=== PATIENT | male | born 1965 | race African-American/Black ===

== ENCOUNTER 2017-01-20 19:04 | Emergency (ER) | payer SELFPAY ==
[~2017-01-20] VITALS: Ht 152.4 cm; Wt 74.8 kg
[~2017-01-20 19:04] MED LIST: ERYT1OIN6 OP
[2017-01-20 20:05] LABS: BARBITURATES NEG (NEG); BENZODIAZEPINES NEG (NEG); CANNABINOIDS POS (NEG); COCAINE POS (NEG); METHADONE NEG (NEG); OPIATES NEG (NEG); PHENCYCLIDINE NEG (NEG)
[2017-01-20 20:09] LABS: ETHANOL, URINE NEG (NEG)
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
[2017-01-20] MEDS ORDERED: NAPROXEN 500 MG TABLET PO ONE (23:00)
[2017-01-20 23:04] VITALS: BP 124/72
[2017-01-20] MEDS ORDERED: CYCL10TA2 PO (23:10)
[2017-01-20] MEDS ORDERED: NAPR375T3 PO (23:10)
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
== END 2017-01-20 23:30 | disposition home or self-care (01) ==
LOC: ER 19:04
DX: S09.90XA Unspecified injury of head, initial encounter (principal); M54.2 Cervicalgia; M54.9 Dorsalgia, unspecified; V59.88XA Occupant (driver) (passenger) of pick-up truck or van injured in other specified transport accidents, initial encounter; Y93.89 Activity, other specified; Y99.8 Other external cause status; Y92.488 Other paved roadways as the place of occurrence of the external cause
CPT/HCPCS: 36415; 70450; 72072; 72100; 72125; 80305; 80320; G0480; G0481; 99285-25

== ENCOUNTER 2017-03-27 12:39 | Inpatient (IN) | payer SELFPAY ==
[~2017-03-27] VITALS: Ht 180.3 cm; Wt 84.0 kg
[~2017-03-27 12:39] MED LIST changes: +CYCL10TA2 PO; +NAPR375T3 PO
[2017-03-27] MEDS ORDERED: KETOROLAC TROMETHAMINE 30 MG/ML INJ. IV ONE (13:15)
[2017-03-27] MEDS ORDERED: ONDANSETRON PF 4 MG/2 ML VIAL. IV ONE (13:15)
[2017-03-27] MEDS ORDERED: MORPHINE SULFATE 10 MG/ML VIAL. IV ONE (13:15)
[2017-03-27] MEDS ORDERED: ASPIRIN ENTERIC COATED 325 MG TABLET.DR. PO ONE (13:15)
[2017-03-27 13:25] LABS: BASO % 1 % (0-3); EOS % 2 % (0-3); HEMATOCRIT 44.7 % (39.0-53.0); HEMOGLOBIN 15.4 g/dL (13.0-17.5); LYMPH # 2.6 x10^3/uL (1.0-4.8); LYMPH % 45 % (24-48); MEAN CORPUSCULAR HEMOGLOBIN 32 pg (25-35); MEAN CORPUSCULAR HGB CONC 34 g/dL (31-37); MEAN CORPUSCULAR VOLUME 93 fL (79-100); MONO % 9 % (0-9); NEUT % 44 % (31-73); PLATELET COUNT 233 x10^3/uL (140-400); RED BLOOD COUNT 4.82 x10^6/uL (4.30-5.70); RED CELL DISTRIBUTION WIDTH 14.5 % (11.5-14.5); WHITE BLOOD COUNT 5.8 x10^3/uL (4.0-11.0)
[2017-03-27 13:32] LABS: PROTHROMBIN TIME PATIENT 12.3 SEC (11.7-14.0)
[2017-03-27 13:33] LABS: CALCIUM 8.7 mg/dL (8.5-10.1); CREATININE 1.2 mg/dL (0.7-1.3); GFR 76.9; POTASSIUM 4.3 mmol/L (3.5-5.1)
[2017-03-27 13:39] LABS: ALBUMIN 3.5 g/dL (3.4-5.0); MAGNESIUM 1.9 mg/dL (1.8-2.4); TOTAL BILIRUBIN 0.3 mg/dL (0.2-1.0); TOTAL PROTEIN 7.1 g/dL (6.4-8.2)
[2017-03-27] MEDS ORDERED: ONDANSETRON PF 4 MG/2 ML VIAL. IV PRN ×2 (14:00→16:00)
[2017-03-27] MEDS ORDERED: fentaNYL PF VIAL 100 MCG/2 ML VIAL IV PRN (14:00)
--- NOTE | 2017-03-27 14:17 | PHYS DOC ---
Past Medical History Past Medical History: COPD Past Surgical History: No Surgical History Alcohol Use: None Drug Use: Marijuana Adult General Chief Complaint Chief Complaint: CHEST PAIN HPI HPI Patient is a 51 year old male presenting to the emergency department for evaluation of chest pain that has been going on for approximately 2-3 days if he describes it as a sharp pain that lasts 3-4 minutes at a time and can be associated with exertion but can happen at rest as well. She and has some shortness of breath with it but no nausea vomiting or diaphoresis. Patient denies any history of cardiac disease and he says his only medical problem is high blood pressure. He denies any drug or alcohol abuse with no prior stress test or heart catheterization that he can think of. Review of Systems Review of Systems Constitutional: Denies fever or chills [] Eyes: Denies change in visual acuity, redness, or eye pain [] HENT: Denies nasal congestion or sore throat [] Respiratory: Denies cough. + shortness of breath [] Cardiovascular: + CP GI: Denies abdominal pain. + nausea. No vomiting, bloody stools or diarrhea [] : Denies dysuria or hematuria [] Musculoskeletal: Denies back pain or joint pain [] Integument: Denies rash or skin lesions [] Neurologic: Denies headache, focal weakness or sensory changes [] Current Medications Current Medications Current Medications Medications (Trade) Dose Ordered Sig/Wayne Start Time Stop Time Status Last Admin Dose Admin Aspirin (Ecotrin) 325 mg 1X ONCE 03/27/17 13:15 03/27/17 13:16 DC 03/27/17 13:22 325 MG Ketorolac Tromethamine (Toradol) 30 mg 1X ONCE 03/27/17 13:15 03/27/17 13:16 DC 03/27/17 13:22 30 MG Morphine Sulfate 5 mg 1X ONCE 03/27/17 13:15 03/27/17 13:16 DC 03/27/17 13:23 5 MG Ondansetron HCl (Zofran) 4 mg 1X ONCE 03/27/17 13:15 03/27/17 13:16 DC 03/27/17 13:22 4 MG Allergies Allergies Allergies Coded Allergies Type Severity Reaction Last Updated Verified No Known Drug Allergies 02/07/16 No Physical Exam Physical Exam Constitutional: Well developed, well nourished, no acute distress, non-toxic appearance. [] HENT: Normocephalic, atraumatic, bilateral external ears normal, oropharynx moist, no oral exudates, nose normal. [] Eyes: PERRLA, EOMI, conjunctiva normal, no discharge. [] Neck: Normal range of motion, no tenderness, supple, no stridor. [] Cardiovascular:Heart rate regular rhythm, no murmur [] Lungs & Thorax: Bilateral breath sounds clear to auscultation [] Abdomen: Bowel sounds normal, soft, no tenderness, no masses, no pulsatile masses. [] Skin: Warm, dry, no erythema, no rash. [] Back: No tenderness, no CVA tenderness. [] Extremities: No tenderness, no cyanosis, no clubbing, ROM intact, no edema. [] Neurologic: Alert and oriented X 3, normal motor function, normal sensory function, no focal deficits noted. [] Current Patient Data Vital Signs Vital Signs Date Time Temp Pulse Resp B/P (MAP) Pulse Ox O2 Delivery O2 Flow Rate FiO2 03/27/17 13:45 58 17 135/72 (93) 100 03/27/17 13:23 Room Air 03/27/17 13:05 97.8 97.8 Lab Values Laboratory Tests Test 03/27/17 13:10 White Blood Count 5.8 x10^3/uL (4.0-11.0) Red Blood Count 4.82 x10^6/uL (4.30-5.70) Hemoglobin 15.4 g/dL (13.0-17.5) Hematocrit 44.7 % (39.0-53.0) Mean Corpuscular Volume 93 fL (79-100) Mean Corpuscular Hemoglobin 32 pg (25-35) Mean Corpuscular Hemoglobin Concent 34 g/dL (31-37) Red Cell Distribution Width 14.5 % (11.5-14.5) Platelet Count 233 x10^3/uL (140-400) Neutrophils (%) (Auto) 44 % (31-73) Lymphocytes (%) (Auto) 45 % (24-48) Monocytes (%) (Auto) 9 % (0-9) Eosinophils (%) (Auto) 2 % (0-3) Basophils (%) (Auto) 1 % (0-3) Neutrophils # (Auto) 2.6 x10^3uL (1.8-7.7) Lymphocytes # (Auto) 2.6 x10^3/uL (1.0-4.8) Monocytes # (Auto) 0.5 x10^3/uL (0.0-1.1) Eosinophils # (Auto) 0.1 x10^3/uL (0.0-0.7) Basophils # (Auto) 0.0 x10^3/uL (0.0-0.2) Prothrombin Time 12.3 SEC (11.7-14.0) Prothrombin Time INR 1.0 (0.8-1.1) PTT 28 SEC (24-38) Sodium Level 143 mmol/L (136-145) Potassium Level 4.3 mmol/L (3.5-5.1) Chloride Level 109 mmol/L (98-107) H Carbon Dioxide Level 31 mmol/L (21-32) Anion Gap 3 (6-14) L Blood Urea Nitrogen 7 mg/dL (8-26) L Creatinine 1.2 mg/dL (0.7-1.3) Estimated GFR (Cockcroft-Gault) 76.9 BUN/Creatinine Ratio 6 (6-20) Glucose Level 76 mg/dL (70-99) Calcium Level 8.7 mg/dL (8.5-10.1) Magnesium Level 1.9 mg/dL (1.8-2.4) Total Bilirubin 0.3 mg/dL (0.2-1.0) Aspartate Amino Transferase (AST) 20 U/L (15-37) Alanine Aminotransferase (ALT) 30 U/L (16-63) Alkaline Phosphatase 51 U/L (46-116) Creatine Kinase 533 U/L (39-308) H Troponin I Quantitative 0.168 ng/mL (0.000-0.055) BN-Wxx-O-Type Natriuretic Peptide 173 pg/mL (0-124) H Total Protein 7.1 g/dL (6.4-8.2) Albumin 3.5 g/dL (3.4-5.0) Albumin/Globulin Ratio 1.0 (1.0-1.7) Lipase 325 U/L (73-393) Laboratory Tests 03/27/17 13:10 Laboratory Tests 03/27/17 13:10 EKG EKG EKG shows biphasic T waves in leads V1 through V3 and inverted T waves in leads V4 through V6 with no obvious ST elevation with a greater than 1 mm. He has normal sinus rhythm at 67 bpm with normal axis. Left ventricular hypertrophy noted Radiology/Procedures Radiology/Procedures Normal mediastinum and normal heart size no obvious free air or pneumothorax or opacity. Course & Med Decision Making Course & Med Decision Making Patient with elevated troponin so will admit for further observation and treatment. Aspirin and Lovenox given. Dragon Disclaimer Dragon Disclaimer This electronic medical record was generated, in whole or in part, using a voice recognition dictation system. Departure Departure Impression: Primary Impression: NSTEMI (non-ST elevated myocardial infarction) Disposition: ADMITTED INPATIENT Admitting Physician: Kevin Saunders Condition: GUARDED Referrals: NO PCP (PCP) ROSAMARIA KAY DO Mar 27, 2017 14:17
--- NOTE | 2017-03-27 14:46 | RAD ---
Indication chest pain. A single view of the chest was obtained. Comparison is made to a study 01/17/2008. The heart, pulmonary vessels and mediastinum appear normal. The lungs are clear. There is no pleural fluid or pneumothorax. The bony structures appear grossly intact. IMPRESSION: No acute or focal process is seen in the chest
[2017-03-27 15:00] VITALS: BP 116/78
--- NOTE | 2017-03-27 15:15 | ACF ---
Admission Forms Criteria MYOCARDIAL INFARCTION Clinical Indications for Admission to Inpatient Care (Place 'X' for any and all applicable criteria): Admission is indicated for 1 or more of the following (1)(2)(3)(4): [X]I. Acute IN [ ]II. Contraindications and/or Inappropriate clinical situations for Observational Care in patients with Myocardial Infarction, when ANY ONE of the following is required: [ ]a) Patient with High risk of cardiac embolism (e.g, patients with previous cardiac embolism, LVEF < 40%, age >75 and patients with prosthetic valve) 18 [ ]b) Patient with Moderate risk including DM patient, CAD and patient aged 65-75 18 [ ]c) Patient with any change in cardiac biomarker especially troponin should be managed as high risk in an inpatient setting 19 [ ]d) Physician judgement irrespective of ECG and other diagnostic findings 20 [ ]III.General contraindications and/or Inappropriate clinical situations for Observational Care in patients with Myocardial Infarction, when ANY ONE of the following is required: [ ]a) Prediction of prolongation of LOS based on ANY ONE of the following may be considered as a contraindication for observational care 2, 3, 4, 5, 6, 7, 8, 9, 10, 11 [ ]i) Age > 65 yrs. [ ]ii) Patient arriving by ambulance [ ]iii) Patient with high acuity [ ]iv) Patient requiring vital sign monitoring [ ]v) Patient on IV medication [ ]b) Systolic blood pressures greater than or equal to 180mmHg 3,12 [ ]c) Patient with altered mental status including delirium and other alteration of consciousness, (3) [ ]d) Patient whose discharge disposition will be to a correction home or rehabilitation home should not be managed in Emergency Department Observation Unit. CMS rule requires 3 days hospital stay before such placement. 3,13 [ ]e) Patient with failure to thrive due to broad array of etiologies 3 ,16,17 [ ]f) Inability to ambulate 3,14 Extended stay beyond goal length of stay may be needed for (1)(18)(20)(24)(25): [ ]a) Hemodynamic instability, persisting symptoms after intensive medical management, or recurring severe, prolonged symptoms [ ]b) Intravascular procedural complications such as acute vessel closure, stent thrombosis, stent malposition, or vessel dissection (26)(27)(28) [ ]c) Extravascular procedural complications such as retroperitoneal hematoma , pericardial effusion, or cardiac tamponade [ ]d) Entry site complications causing bleeding, hematoma or distal ischemia and requiring ongoing monitoring, surgical repair or surgical thrombectomy. Dangerous arrhythmia [ ]e) Complicated percutaneous coronary intervention (e.g., unsuccessful percutaneous coronary intervention or percutaneous coronary intervention of non- [place] vessel) [ ]f) Urgent or emergent surgery for complications of IN (e.g., ventricular rupture, valvular insufficiency) [ ]g) Surgical revascularization via coronary artery bypass graft [ ]h) Heart failure (e.g., pulmonary edema) [ ]i) Unstable pulmonary comorbidities, including COPD or pneumonia (31) [ ]j) Acute renal failure The original [employer] content created by [employer] has been revised. The portions of the content which have been revised are identified through the use of italic text or in bold, and [facility] has neither reviewed nor approved the modified material. All other unmodified content is copyright [employer] [facility] Please see references footnoted in the original [facility] edition 2016 Admission Criteria Met?: Yes HARMONY FAUSTIN Mar 27, 2017 15:15
--- NOTE | 2017-03-27 15:44 | PDOC1 ---
History and Physical Past Medical History Cardiovascular: HTN Past Surgical History Past Surgical History: No pertinent history Current Problem List Problem List Problems Medical Problems: (1) NSTEMI (non-ST elevated myocardial infarction) Status: Acute Current Medications Current Medications Current Medications Medications (Trade) Dose Ordered Sig/Wayne Start Time Stop Time Status Last Admin Dose Admin Aspirin (Ecotrin) 325 mg 1X ONCE 03/27/17 13:15 03/27/17 13:16 DC 03/27/17 13:22 Enoxaparin Sodium (Lovenox 80mg Syringe) 70 mg 1X ONCE 03/27/17 14:00 03/27/17 14:01 DC 03/27/17 14:47 Fentanyl Citrate (Fentanyl 2ml Vial) 50 mcg PRN Q2HR PRN 03/27/17 14:00 03/28/17 13:59 Ketorolac Tromethamine (Toradol) 30 mg 1X ONCE 03/27/17 13:15 03/27/17 13:16 DC 03/27/17 13:22 Morphine Sulfate 5 mg 1X ONCE 03/27/17 13:15 03/27/17 13:16 DC 03/27/17 13:23 Ondansetron HCl (Zofran) 4 mg PRN Q8HRS PRN 03/27/17 14:00 03/28/17 13:59 Allergies Allergies Allergies Coded Allergies Type Severity Reaction Last Updated Verified No Known Drug Allergies 02/07/16 No ROS Review of System CONSTITUTIONAL: No fever or chills EYES: No recent changes SKIN: No rash or itching CARDIOVASCULAR: No chest pain, syncope, palpitations, or edema RESPIRATORY: No SOB or cough GASTROINTESTINAL: No nausea, vomiting or abdominal pain NEUROLOGICAL: No headaches or weakness ENDOCRINE: No cold or heat intolerance GENITOURINARY: No urgency or frequency of urination MUSCULOSKELETAL: No back pain or joint pain LYMPHATICS: No enlarged lymph nodes PSYCHIATRIC: No anxiety or depression Physical Exam Physical Exam GEN.: No apparent distress. Alert and oriented. HEENT: Head is normocephalic, atraumatic NECK: Supple. no JVD LUNGS: Clear to auscultation. normal airflow HEART: RRR, S1, S2 present. Peripheral pulses intact ABDOMEN: Soft, nontender. Positive bowel sounds. EXTREMITIES: Without any cyanosis. NEUROLOGIC: Normal speech, normal tone PSYCHIATRIC: Normal affect, normal mood. SKIN: No ulcerations Vitals Vitals Vital Signs Date Time Temp Pulse Resp B/P (MAP) Pulse Ox O2 Delivery O2 Flow Rate FiO2 03/27/17 13:45 58 17 135/72 (93) 100 03/27/17 13:23 Room Air 03/27/17 13:05 97.8 97.8 Labs Labs Laboratory Tests Test 03/27/17 13:10 White Blood Count 5.8 x10^3/uL (4.0-11.0) Red Blood Count 4.82 x10^6/uL (4.30-5.70) Hemoglobin 15.4 g/dL (13.0-17.5) Hematocrit 44.7 % (39.0-53.0) Mean Corpuscular Volume 93 fL (79-100) Mean Corpuscular Hemoglobin 32 pg (25-35) Mean Corpuscular Hemoglobin Concent 34 g/dL (31-37) Red Cell Distribution Width 14.5 % (11.5-14.5) Platelet Count 233 x10^3/uL (140-400) Neutrophils (%) (Auto) 44 % (31-73) Lymphocytes (%) (Auto) 45 % (24-48) Monocytes (%) (Auto) 9 % (0-9) Eosinophils (%) (Auto) 2 % (0-3) Basophils (%) (Auto) 1 % (0-3) Neutrophils # (Auto) 2.6 x10^3uL (1.8-7.7) Lymphocytes # (Auto) 2.6 x10^3/uL (1.0-4.8) Monocytes # (Auto) 0.5 x10^3/uL (0.0-1.1) Eosinophils # (Auto) 0.1 x10^3/uL (0.0-0.7) Basophils # (Auto) 0.0 x10^3/uL (0.0-0.2) Prothrombin Time 12.3 SEC (11.7-14.0) Prothromb Time International Ratio 1.0 (0.8-1.1) Activated Partial Thromboplast Time 28 SEC (24-38) Sodium Level 143 mmol/L (136-145) Potassium Level 4.3 mmol/L (3.5-5.1) Chloride Level 109 mmol/L (98-107) Carbon Dioxide Level 31 mmol/L (21-32) Anion Gap 3 (6-14) Blood Urea Nitrogen 7 mg/dL (8-26) Creatinine 1.2 mg/dL (0.7-1.3) Estimated GFR (Cockcroft-Gault) 76.9 BUN/Creatinine Ratio 6 (6-20) Glucose Level 76 mg/dL (70-99) Calcium Level 8.7 mg/dL (8.5-10.1) Magnesium Level 1.9 mg/dL (1.8-2.4) Total Bilirubin 0.3 mg/dL (0.2-1.0) Aspartate Amino Transf (AST/SGOT) 20 U/L (15-37) Alanine Aminotransferase (ALT/SGPT) 30 U/L (16-63) Alkaline Phosphatase 51 U/L (46-116) Creatine Kinase 533 U/L (39-308) Troponin I Quantitative 0.168 ng/mL (0.000-0.055) OG-Qwo-A-Type Natriuretic Peptide 173 pg/mL (0-124) Total Protein 7.1 g/dL (6.4-8.2) Albumin 3.5 g/dL (3.4-5.0) Albumin/Globulin Ratio 1.0 (1.0-1.7) Lipase 325 U/L (73-393) Ethyl Alcohol Level < 10 mg/dL (0-10) Laboratory Tests Test 03/27/17 13:10 White Blood Count 5.8 x10^3/uL (4.0-11.0) Red Blood Count 4.82 x10^6/uL (4.30-5.70) Hemoglobin 15.4 g/dL (13.0-17.5) Hematocrit 44.7 % (39.0-53.0) Mean Corpuscular Volume 93 fL (79-100) Mean Corpuscular Hemoglobin 32 pg (25-35) Mean Corpuscular Hemoglobin Concent 34 g/dL (31-37) Red Cell Distribution Width 14.5 % (11.5-14.5) Platelet Count 233 x10^3/uL (140-400) Neutrophils (%) (Auto) 44 % (31-73) Lymphocytes (%) (Auto) 45 % (24-48) Monocytes (%) (Auto) 9 % (0-9) Eosinophils (%) (Auto) 2 % (0-3) Basophils (%) (Auto) 1 % (0-3) Neutrophils # (Auto) 2.6 x10^3uL (1.8-7.7) Lymphocytes # (Auto) 2.6 x10^3/uL (1.0-4.8) Monocytes # (Auto) 0.5 x10^3/uL (0.0-1.1) Eosinophils # (Auto) 0.1 x10^3/uL (0.0-0.7) Basophils # (Auto) 0.0 x10^3/uL (0.0-0.2) Prothrombin Time 12.3 SEC (11.7-14.0) Prothromb Time International Ratio 1.0 (0.8-1.1) Activated Partial Thromboplast Time 28 SEC (24-38) Sodium Level 143 mmol/L (136-145) Potassium Level 4.3 mmol/L (3.5-5.1) Chloride Level 109 mmol/L (98-107) Carbon Dioxide Level 31 mmol/L (21-32) Anion Gap 3 (6-14) Blood Urea Nitrogen 7 mg/dL (8-26) Creatinine 1.2 mg/dL (0.7-1.3) Estimated GFR (Cockcroft-Gault) 76.9 BUN/Creatinine Ratio 6 (6-20) Glucose Level 76 mg/dL (70-99) Calcium Level 8.7 mg/dL (8.5-10.1) Magnesium Level 1.9 mg/dL (1.8-2.4) Total Bilirubin 0.3 mg/dL (0.2-1.0) Aspartate Amino Transf (AST/SGOT) 20 U/L (15-37) Alanine Aminotransferase (ALT/SGPT) 30 U/L (16-63) Alkaline Phosphatase 51 U/L (46-116) Creatine Kinase 533 U/L (39-308) Troponin I Quantitative 0.168 ng/mL (0.000-0.055) QG-Jha-W-Type Natriuretic Peptide 173 pg/mL (0-124) Total Protein 7.1 g/dL (6.4-8.2) Albumin 3.5 g/dL (3.4-5.0) Albumin/Globulin Ratio 1.0 (1.0-1.7) Lipase 325 U/L (73-393) Ethyl Alcohol Level < 10 mg/dL (0-10) VTE Prophylaxis Ordered VTE Prophylaxis Devices: Yes VTE Pharmacological Prophylaxi: Yes STEFANY WADE MD Mar 27, 2017 15:44
[2017-03-27] MEDS ORDERED: HYDROcodone/APAP 5/325MG 1 TAB TABLET PO PRN (16:00)
[2017-03-27] MEDS ORDERED: ACETAMINOPHEN 325 MG TABLET. PO PRN (16:00)
[2017-03-27] MEDS ORDERED: ALBUTEROL SULFATE 2.5 MG/3 ML NEBU. NEB PRN (16:00)
[2017-03-27] MEDS ORDERED: hydrALAZINE 20 MG/ML VIAL. IVP PRN (16:00)
[2017-03-27 16:20] VITALS: BP 116/61
[2017-03-27 16:21] VITALS: BP 116/61
[2017-03-27 16:22] VITALS: BP 116/61
--- NOTE | 2017-03-27 17:11 | EKG ---
[facility] [address] [place] [address] Test Date: 2017-03-27 Test Time: 17:02:35 Pat Name: CALISTA ROWAN Department: Room: 205 1 Gender: M Registered Nurse Float Pool: : [id number] Requested By: ROSAMARIA KAY Order Number: [id number] Reading MD: Mayra Christine Measurements Intervals [place] Rate: 53 P: 56 [place]: 202 QRS: 73 QRSD: 100 T: 128 QT: 476 QTc: 449 Interpretive Statements SINUS RHYTHM LEFT ATRIAL ABNORMALITY LVH WITH REPOLARIZATION ABNORMALITY ALSO CONSIDER MYOCARDIAL ISCHEMIA ABNORMAL ECG RI6.01 No previous ECG available for comparison Electronically Signed On 03-28-2017 21:20:58 CDT by Mayra Christine
--- NOTE | 2017-03-27 17:51 | HP ---
ADMIT DATE: 03/27/2017 CHIEF COMPLAINT: Chest pain. HISTORY OF THE PRESENT ILLNESS: A 51-year-old male patient who presented to the ER with complaints of chest pain. Symptoms were there for over the last couple of days. They are coming and going, periodic in nature, and lasting for a few minutes. His employer asked him to go to the hospital to check it out. The patient denies any nausea, vomiting, or sweating. He never had a stress test in the past. He never had any workup for chest pain or any bypass surgeries. The patient states he was taking too much salt with the diet. Other than that, he denies taking any pills for any chronic medical conditions. His mother has hypertension and heart disease. He denies any sudden cardiac deaths. At the time of my examination, the patient states that his pain is still there in front of the chest, going to his back sometimes. It resolves immediately in minutes. PAST MEDICAL HISTORY: COPD. PERSONAL HISTORY: Smoking, alcohol occasionally, marijuana occasionally. He denies any other drug abuse. ALLERGIES: NKDA. REVIEW OF SYSTEMS: Please see my electronic H and P. PHYSICAL EXAMINATION: Please see my electronic H and P. LABORATORY FINDINGS: CBC is within normal limits. Chemistry is within normal limits except for CPK at 533 and first set of troponin 0.168. Toxicology is negative except for cannabinoids. Coagulation Panel: PT and INR are within normal limits. EKG LVH with repolarization changes inverted T-waves in V4 and V5. No ST elevation is seen. Personally reviewed. Chest x-ray: No acute focal process seen. CT of the head and cervical spine: No acute intracranial process seen. No fracture, subluxation of the cervical vertebra seen. Lumbar spine x-ray: No osseous traumatic injury seen. ASSESSMENT AND PLAN: 1. Chest pain, possible differentials ACS versus gastritis versus costochondritis. 2. Chronic obstructive pulmonary disease. 3. Substance use, marijuana. PLAN: He is being placed on cardiac floor on telemetry. We will get 3 more sets of troponins and consult Cardiology for further recommendations. The patient received already Lovenox in the ER. We will continue either heparin based on his troponins. We will try Protonix for now, IV. If the patient's symptoms get worse, I will repeat an EKG again. At this time, he is resting comfortably, able to answer questions. recommend abstinence from THC STEFANY WADE MD DR: DEUCE/migue JOB#: [id number] / [id number] BIA
[2017-03-27] MEDS ORDERED: MORPHINE SULFATE 2 MG/ML DISP.SYRIN. IV PRN (18:00)
[2017-03-27] MEDS ORDERED: NITROGLYCERIN SUBLINGUAL 0.4 MG BOTTLE OF 25. SL PRN (18:00)
[2017-03-27] MEDS ORDERED: 0.9 % SODIUM CHLORIDE 10 ML DISP.SYRIN. IV PRN (18:00)
[2017-03-27 19:16] VITALS: BP 119/79
[2017-03-27] MEDS ORDERED: PANTOPRAZOLE 40 MG TABLET.DR. PO ONE (21:00)
[2017-03-27 22:15] VITALS: BP 132/83
[2017-03-28 03:50] VITALS: BP 131/71
[2017-03-28 05:44] LABS: BASO % 1 % (0-3); EOS % 1 % (0-3); HEMATOCRIT 44.4 % (39.0-53.0); HEMOGLOBIN 15.1 g/dL (13.0-17.5); LYMPH # 2.8 x10^3/uL (1.0-4.8); LYMPH % 53 % (24-48); MEAN CORPUSCULAR HEMOGLOBIN 32 pg (25-35); MEAN CORPUSCULAR HGB CONC 34 g/dL (31-37); MEAN CORPUSCULAR VOLUME 94 fL (79-100); MONO % 6 % (0-9); NEUT % 39 % (31-73); PLATELET COUNT 222 x10^3/uL (140-400); RED BLOOD COUNT 4.72 x10^6/uL (4.30-5.70); RED CELL DISTRIBUTION WIDTH 14.5 % (11.5-14.5); WHITE BLOOD COUNT 5.4 x10^3/uL (4.0-11.0)
[2017-03-28 06:01] LABS: CALCIUM 8.6 mg/dL (8.5-10.1); CREATININE 1.3 mg/dL (0.7-1.3); GFR 70.1; POTASSIUM 4.5 mmol/L (3.5-5.1)
[2017-03-28 06:06] LABS: CHOLESTEROL/HDL RATIO 5.3
[2017-03-28 07:00] VITALS: BP 147/69
[2017-03-28 11:00] VITALS: BP 117/66
--- NOTE | 2017-03-28 12:20 | PDOC ---
PROGRESS NOTES Chief Complaint Chief Complaint cc: chest pain A/P NSTEMI: On Lovenox, Echo pending, chest pain free, possible Cath in AM, Pain control with Morphine PRN Hyperlipemia: on Lipitor Vitals Vitals Vital Signs Date Time Temp Pulse Resp B/P (MAP) Pulse Ox O2 Delivery O2 Flow Rate FiO2 03/28/17 11:00 97.7 58 16 117/66 (83) 98 Room Air 97.7 03/28/17 07:00 Physical Exam General: Alert, Oriented X3 Heart: Normal S1, Normal S2 Lungs: Wheezing Abdomen: Normal bowel sounds Extremities: No clubbing Labs LABS Laboratory Tests Test 03/27/17 13:10 03/27/17 20:00 03/28/17 02:30 03/28/17 05:15 White Blood Count 5.8 x10^3/uL (4.0-11.0) 5.4 x10^3/uL (4.0-11.0) Red Blood Count 4.82 x10^6/uL (4.30-5.70) 4.72 x10^6/uL (4.30-5.70) Hemoglobin 15.4 g/dL (13.0-17.5) 15.1 g/dL (13.0-17.5) Hematocrit 44.7 % (39.0-53.0) 44.4 % (39.0-53.0) Mean Corpuscular Volume 93 fL (79-100) 94 fL (79-100) Mean Corpuscular Hemoglobin 32 pg (25-35) 32 pg (25-35) Mean Corpuscular Hemoglobin Concent 34 g/dL (31-37) 34 g/dL (31-37) Red Cell Distribution Width 14.5 % (11.5-14.5) 14.5 % (11.5-14.5) Platelet Count 233 x10^3/uL (140-400) 222 x10^3/uL (140-400) Neutrophils (%) (Auto) 44 % (31-73) 39 % (31-73) Lymphocytes (%) (Auto) 45 % (24-48) 53 % (24-48) Monocytes (%) (Auto) 9 % (0-9) 6 % (0-9) Eosinophils (%) (Auto) 2 % (0-3) 1 % (0-3) Basophils (%) (Auto) 1 % (0-3) 1 % (0-3) Neutrophils # (Auto) 2.6 x10^3uL (1.8-7.7) 2.1 x10^3uL (1.8-7.7) Lymphocytes # (Auto) 2.6 x10^3/uL (1.0-4.8) 2.8 x10^3/uL (1.0-4.8) Monocytes # (Auto) 0.5 x10^3/uL (0.0-1.1) 0.3 x10^3/uL (0.0-1.1) Eosinophils # (Auto) 0.1 x10^3/uL (0.0-0.7) 0.1 x10^3/uL (0.0-0.7) Basophils # (Auto) 0.0 x10^3/uL (0.0-0.2) 0.0 x10^3/uL (0.0-0.2) Prothrombin Time 12.3 SEC (11.7-14.0) Prothromb Time International Ratio 1.0 (0.8-1.1) Activated Partial Thromboplast Time 28 SEC (24-38) Sodium Level 143 mmol/L (136-145) 142 mmol/L (136-145) Potassium Level 4.3 mmol/L (3.5-5.1) 4.5 mmol/L (3.5-5.1) Chloride Level 109 mmol/L (98-107) 107 mmol/L (98-107) Carbon Dioxide Level 31 mmol/L (21-32) 28 mmol/L (21-32) Anion Gap 3 (6-14) 7 (6-14) Blood Urea Nitrogen 7 mg/dL (8-26) 11 mg/dL (8-26) Creatinine 1.2 mg/dL (0.7-1.3) 1.3 mg/dL (0.7-1.3) Estimated GFR (Cockcroft-Gault) 76.9 70.1 BUN/Creatinine Ratio 6 (6-20) Glucose Level 76 mg/dL (70-99) 78 mg/dL (70-99) Calcium Level 8.7 mg/dL (8.5-10.1) 8.6 mg/dL (8.5-10.1) Magnesium Level 1.9 mg/dL (1.8-2.4) Total Bilirubin 0.3 mg/dL (0.2-1.0) Aspartate Amino Transf (AST/SGOT) 20 U/L (15-37) Alanine Aminotransferase (ALT/SGPT) 30 U/L (16-63) Alkaline Phosphatase 51 U/L (46-116) Creatine Kinase 533 U/L (39-308) Troponin I Quantitative 0.168 ng/mL (0.000-0.055) 0.117 ng/mL (0.000-0.055) 0.149 ng/mL (0.000-0.055) SI-Zup-N-Type Natriuretic Peptide 173 pg/mL (0-124) Total Protein 7.1 g/dL (6.4-8.2) Albumin 3.5 g/dL (3.4-5.0) Albumin/Globulin Ratio 1.0 (1.0-1.7) Lipase 325 U/L (73-393) Ethyl Alcohol Level < 10 mg/dL (0-10) Triglycerides Level 178 mg/dL (0-150) Cholesterol Level 175 mg/dL (0-200) LDL Cholesterol, Calculated 106 mg/dL (0-100) VLDL Cholesterol, Calculated 36 mg/dL (0-40) Non-HDL Cholesterol Calculated 142 mg/dL (0-129) HDL Cholesterol 33 mg/dL (40-60) Cholesterol/HDL Ratio 5.3 Assessment and Plan Assessmemt and Plan Problems Medical Problems: (1) NSTEMI (non-ST elevated myocardial infarction) Status: Acute Problems: Comment Review of Relevant I have reviewed the following items sina (where applicable) has been applied. Labs Laboratory Tests Test 03/27/17 13:10 03/27/17 20:00 03/28/17 02:30 03/28/17 05:15 White Blood Count 5.8 x10^3/uL (4.0-11.0) 5.4 x10^3/uL (4.0-11.0) Red Blood Count 4.82 x10^6/uL (4.30-5.70) 4.72 x10^6/uL (4.30-5.70) Hemoglobin 15.4 g/dL (13.0-17.5) 15.1 g/dL (13.0-17.5) Hematocrit 44.7 % (39.0-53.0) 44.4 % (39.0-53.0) Mean Corpuscular Volume 93 fL (79-100) 94 fL (79-100) Mean Corpuscular Hemoglobin 32 pg (25-35) 32 pg (25-35) Mean Corpuscular Hemoglobin Concent 34 g/dL (31-37) 34 g/dL (31-37) Red Cell Distribution Width 14.5 % (11.5-14.5) 14.5 % (11.5-14.5) Platelet Count 233 x10^3/uL (140-400) 222 x10^3/uL (140-400) Neutrophils (%) (Auto) 44 % (31-73) 39 % (31-73) Lymphocytes (%) (Auto) 45 % (24-48) 53 % (24-48) Monocytes (%) (Auto) 9 % (0-9) 6 % (0-9) Eosinophils (%) (Auto) 2 % (0-3) 1 % (0-3) Basophils (%) (Auto) 1 % (0-3) 1 % (0-3) Neutrophils # (Auto) 2.6 x10^3uL (1.8-7.7) 2.1 x10^3uL (1.8-7.7) Lymphocytes # (Auto) 2.6 x10^3/uL (1.0-4.8) 2.8 x10^3/uL (1.0-4.8) Monocytes # (Auto) 0.5 x10^3/uL (0.0-1.1) 0.3 x10^3/uL (0.0-1.1) Eosinophils # (Auto) 0.1 x10^3/uL (0.0-0.7) 0.1 x10^3/uL (0.0-0.7) Basophils # (Auto) 0.0 x10^3/uL (0.0-0.2) 0.0 x10^3/uL (0.0-0.2) Prothrombin Time 12.3 SEC (11.7-14.0) Prothromb Time International Ratio 1.0 (0.8-1.1) Activated Partial Thromboplast Time 28 SEC (24-38) Sodium Level 143 mmol/L (136-145) 142 mmol/L (136-145) Potassium Level 4.3 mmol/L (3.5-5.1) 4.5 mmol/L (3.5-5.1) Chloride Level 109 mmol/L (98-107) 107 mmol/L (98-107) Carbon Dioxide Level 31 mmol/L (21-32) 28 mmol/L (21-32) Anion Gap 3 (6-14) 7 (6-14) Blood Urea Nitrogen 7 mg/dL (8-26) 11 mg/dL (8-26) Creatinine 1.2 mg/dL (0.7-1.3) 1.3 mg/dL (0.7-1.3) Estimated GFR (Cockcroft-Gault) 76.9 70.1 BUN/Creatinine Ratio 6 (6-20) Glucose Level 76 mg/dL (70-99) 78 mg/dL (70-99) Calcium Level 8.7 mg/dL (8.5-10.1) 8.6 mg/dL (8.5-10.1) Magnesium Level 1.9 mg/dL (1.8-2.4) Total Bilirubin 0.3 mg/dL (0.2-1.0) Aspartate Amino Transf (AST/SGOT) 20 U/L (15-37) Alanine Aminotransferase (ALT/SGPT) 30 U/L (16-63) Alkaline Phosphatase 51 U/L (46-116) Creatine Kinase 533 U/L (39-308) Troponin I Quantitative 0.168 ng/mL (0.000-0.055) 0.117 ng/mL (0.000-0.055) 0.149 ng/mL (0.000-0.055) DJ-Tqm-S-Type Natriuretic Peptide 173 pg/mL (0-124) Total Protein 7.1 g/dL (6.4-8.2) Albumin 3.5 g/dL (3.4-5.0) Albumin/Globulin Ratio 1.0 (1.0-1.7) Lipase 325 U/L (73-393) Ethyl Alcohol Level < 10 mg/dL (0-10) Triglycerides Level 178 mg/dL (0-150) Cholesterol Level 175 mg/dL (0-200) LDL Cholesterol, Calculated 106 mg/dL (0-100) VLDL Cholesterol, Calculated 36 mg/dL (0-40) Non-HDL Cholesterol Calculated 142 mg/dL (0-129) HDL Cholesterol 33 mg/dL (40-60) Cholesterol/HDL Ratio 5.3 Laboratory Tests Test 03/27/17 13:10 03/27/17 20:00 03/28/17 02:30 03/28/17 05:15 White Blood Count 5.8 x10^3/uL (4.0-11.0) 5.4 x10^3/uL (4.0-11.0) Red Blood Count 4.82 x10^6/uL (4.30-5.70) 4.72 x10^6/uL (4.30-5.70) Hemoglobin 15.4 g/dL (13.0-17.5) 15.1 g/dL (13.0-17.5) Hematocrit 44.7 % (39.0-53.0) 44.4 % (39.0-53.0) Mean Corpuscular Volume 93 fL (79-100) 94 fL (79-100) Mean Corpuscular Hemoglobin 32 pg (25-35) 32 pg (25-35) Mean Corpuscular Hemoglobin Concent 34 g/dL (31-37) 34 g/dL (31-37) Red Cell Distribution Width 14.5 % (11.5-14.5) 14.5 % (11.5-14.5) Platelet Count 233 x10^3/uL (140-400) 222 x10^3/uL (140-400) Neutrophils (%) (Auto) 44 % (31-73) 39 % (31-73) Lymphocytes (%) (Auto) 45 % (24-48) 53 % (24-48) Monocytes (%) (Auto) 9 % (0-9) 6 % (0-9) Eosinophils (%) (Auto) 2 % (0-3) 1 % (0-3) Basophils (%) (Auto) 1 % (0-3) 1 % (0-3) Neutrophils # (Auto) 2.6 x10^3uL (1.8-7.7) 2.1 x10^3uL (1.8-7.7) Lymphocytes # (Auto) 2.6 x10^3/uL (1.0-4.8) 2.8 x10^3/uL (1.0-4.8) Monocytes # (Auto) 0.5 x10^3/uL (0.0-1.1) 0.3 x10^3/uL (0.0-1.1) Eosinophils # (Auto) 0.1 x10^3/uL (0.0-0.7) 0.1 x10^3/uL (0.0-0.7) Basophils # (Auto) 0.0 x10^3/uL (0.0-0.2) 0.0 x10^3/uL (0.0-0.2) Prothrombin Time 12.3 SEC (11.7-14.0) Prothromb Time International Ratio 1.0 (0.8-1.1) Activated Partial Thromboplast Time 28 SEC (24-38) Sodium Level 143 mmol/L (136-145) 142 mmol/L (136-145) Potassium Level 4.3 mmol/L (3.5-5.1) 4.5 mmol/L (3.5-5.1) Chloride Level 109 mmol/L (98-107) 107 mmol/L (98-107) Carbon Dioxide Level 31 mmol/L (21-32) 28 mmol/L (21-32) Anion Gap 3 (6-14) 7 (6-14) Blood Urea Nitrogen 7 mg/dL (8-26) 11 mg/dL (8-26) Creatinine 1.2 mg/dL (0.7-1.3) 1.3 mg/dL (0.7-1.3) Estimated GFR (Cockcroft-Gault) 76.9 70.1 BUN/Creatinine Ratio 6 (6-20) Glucose Level 76 mg/dL (70-99) 78 mg/dL (70-99) Calcium Level 8.7 mg/dL (8.5-10.1) 8.6 mg/dL (8.5-10.1) Magnesium Level 1.9 mg/dL (1.8-2.4) Total Bilirubin 0.3 mg/dL (0.2-1.0) Aspartate Amino Transf (AST/SGOT) 20 U/L (15-37) Alanine Aminotransferase (ALT/SGPT) 30 U/L (16-63) Alkaline Phosphatase 51 U/L (46-116) Creatine Kinase 533 U/L (39-308) Troponin I Quantitative 0.168 ng/mL (0.000-0.055) 0.117 ng/mL (0.000-0.055) 0.149 ng/mL (0.000-0.055) CH-Jvc-K-Type Natriuretic Peptide 173 pg/mL (0-124) Total Protein 7.1 g/dL (6.4-8.2) Albumin 3.5 g/dL (3.4-5.0) Albumin/Globulin Ratio 1.0 (1.0-1.7) Lipase 325 U/L (73-393) Ethyl Alcohol Level < 10 mg/dL (0-10) Triglycerides Level 178 mg/dL (0-150) Cholesterol Level 175 mg/dL (0-200) LDL Cholesterol, Calculated 106 mg/dL (0-100) VLDL Cholesterol, Calculated 36 mg/dL (0-40) Non-HDL Cholesterol Calculated 142 mg/dL (0-129) HDL Cholesterol 33 mg/dL (40-60) Cholesterol/HDL Ratio 5.3 Medications Current Medications Aspirin (Ecotrin) 325 mg 1X ONCE PO Last administered on 03/27/17 13:22; Start 03/27/17 at 13:15; Stop 03/27/17 at 13:16; Status DC Ketorolac Tromethamine (Toradol) 30 mg 1X ONCE IV Last administered on 13:22; Start 03/27/17 at 13:15; Stop 03/27/17 at 13:16; Status DC Morphine Sulfate 5 mg 1X ONCE IV Last administered on 03/27/17 13:23; Start 03/27/17 at 13:15; Stop 03/27/17 at 13:16; Status DC Ondansetron HCl (Zofran) 4 mg 1X ONCE IV Last administered on 03/27/17 13:22 ; Start 03/27/17 at 13:15; Stop 03/27/17 at 13:16; Status DC Enoxaparin Sodium (Lovenox 80mg Syringe) 70 mg 1X ONCE SQ Last administered on 6/10/17at 14:47; Start 03/27/17 at 14:00; Stop 03/27/17 at 14:01; Status DC Ondansetron HCl (Zofran) 4 mg PRN Q8HRS PRN IV NAUSEA/VOMITING; Start 03/27/17 at 14:00; Stop 03/27/17 at 20:47; Status DC Fentanyl Citrate (Fentanyl 2ml Vial) 50 mcg PRN Q2HR PRN IV PAIN; Start at 14:00; Stop 03/28/17 at 13:59 Acetaminophen (Tylenol) 325 mg PRN Q6HRS PRN PO MILD PAIN / TEMP; Start at 16:00 Acetaminophen/ Hydrocodone Bitart (Lortab 5/325) 1 tab PRN Q6HRS PRN PO MODERATE TO SEVERE PAIN; Start 03/27/17 at 16:00 Hydralazine HCl (Apresoline) 10 mg PRN Q4HRS PRN IVP ELEVATED BP, SEE COMMENTS ; Start 03/27/17 at 16:00 Ondansetron HCl (Zofran) 4 mg PRN Q8HRS PRN IV NAUSEA/VOMITING; Start 03/27/17 at 16:00 Albuterol Sulfate (Ventolin Neb Soln) 2.5 mg PRN Q4HRS PRN NEB SHORTNESS OF BREATH; Start 03/27/17 at 16:00 Morphine Sulfate 2 mg PRN Q2HR PRN IV PAIN; Start 03/27/17 at 18:00 Nitroglycerin (Nitrostat) 0.4 mg PRN Q5MIN PRN SL CHEST PAIN, MR X3; Start 08/03 at 18:00 Sodium Chloride (Normal Saline Flush) 3 ml QSHIFT PRN IV AFTER MEDS AND BLOOD DRAWS; Start 03/27/17 at 18:00 Enoxaparin Sodium (Lovenox Per Pharmacy Prophylaxis Dosing) 1 each PRN DAILY PRN MC SEE COMMENTS; Start 03/27/17 at 18:15 Enoxaparin Sodium (Lovenox 40mg Syringe) 40 mg Q24H SQ ; Start 03/28/17 at 15:00 Pantoprazole Sodium (Protonix) 40 mg 1X ONCE PO Last administered on t 22:26; Start 03/27/17 at 21:00; Stop 03/27/17 at 21:01; Status DC Active Scripts Active Cyclobenzaprine Hcl 10 Mg Tablet 10 Mg PO TID PRN Naproxen 375 Mg Tablet 375 Mg PO BID PRN Erythromycin (Erythromycin Base) 3.5 Gm Oint...g. 3.5 Gm OP TID 7 Days Vitals/I & O Vital Sign - Last 24 Hours 03/27/17 03/27/17 03/27/17 03/27/17 13:05 13:15 13:23 13:45 Temp 97.8 97.8 Pulse 72 64 58 Resp 08 05 17 B/P (MAP) 128/56 (80) 126/67 (86) 135/72 (93) Pulse Ox 97 100 100 O2 Delivery Room Air Room Air Room Air 03/27/17 03/27/17 03/27/17 03/27/17 14:15 14:45 15:00 15:15 Temp 97.8 97.8 Pulse 58 54 72 54 Resp 19 B/P (MAP) 126/72 (90) 127/71 (89) 116/78 (91) 121/60 (80) Pulse Ox 100 97 97 03/27/17 03/27/17 03/27/17 03/27/17 16:04 16:20 16:21 16:22 Temp 97.8 97.8 97.8 97.8 97.8 97.8 Pulse 62 62 62 Resp 18 B/P (MAP) 116/61 (79) 116/61 (79) 116/61 (79) Pulse Ox 98 98 98 O2 Delivery Room Air Room Air Room Air Room Air 03/27/17 03/27/17 03/27/17 03/28/17 19:16 19:40 22:15 03:50 Temp 97.8 98.5 98.3 97.8 98.5 98.3 Pulse 68 54 48 Resp 16 16 16 B/P (MAP) 119/79 (92) 132/83 (99) 131/71 (91) Pulse Ox 98 99 100 O2 Delivery Room Air Room Air Nasal Cannula Nasal Cannula O2 Flow Rate 2.0 2.0 03/28/17 03/28/17 03/28/17 07:00 07:19 11:00 Temp 98.1 97.7 98.1 97.7 Pulse 55 58 Resp 18 16 B/P (MAP) 147/69 (95) 117/66 (83) Pulse Ox 98 98 O2 Delivery Room Air Room Air Room Air O2 Flow Rate Intake and Output 03/27/17 03/27/17 03/28/17 15:00 23:00 07:00 Intake Total 540 ml 350 ml Balance 540 ml 350 ml STEFANY WADE MD Mar 28, 2017 12:20
--- NOTE | 2017-03-28 12:48 | EKG ---
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
[2017-03-28 13:41] LABS: FREE T4 0.97 ng/dL (0.76-1.46)
--- NOTE | 2017-03-28 14:47 | PDOC2 ---
CONSULT Date of Consult Date of Consult DATE: 03/28/17 TIME: 14:41 Reason for Consult Reason for Consult: chest pain Referring Physician Referring Physician: Dr. Saunders Identification/Chief Complaint Chief Complaint chest pain Source Source: Patient History of Present Illness Reason for Visit: The patient is a pleasant 51-year-old male with a history of hypertension and mild COPD. He presented to the emergency room with 2-3 days of periodic chest discomfort. The pain occurred both at rest and with exertion. His troponin has been borderline. Chest x-ray shows no acute process. EKG shows anterior ST segment changes and T-wave inversions. This morning the patient is pain-free and reports feeling much better. He denies any history of coronary disease, congestive heart failure or cardiac arrhythmias. Past Medical History Cardiovascular: HTN Pulmonary: COPD Past Surgical History Past Surgical History: No pertinent history Family History Family History: Heart Disease Social History <1 pack per day Current Problem List Problem List Problems Medical Problems: (1) NSTEMI (non-ST elevated myocardial infarction) Status: Acute Current Medications Current Medications Current Medications Aspirin (Ecotrin) 325 mg 1X ONCE PO Last administered on 03/27/17 13:22; Start 03/27/17 at 13:15; Stop 03/27/17 at 13:16; Status DC Ketorolac Tromethamine (Toradol) 30 mg 1X ONCE IV Last administered on 13:22; Start 03/27/17 at 13:15; Stop 03/27/17 at 13:16; Status DC Morphine Sulfate 5 mg 1X ONCE IV Last administered on 03/27/17 13:23; Start 03/27/17 at 13:15; Stop 03/27/17 at 13:16; Status DC Ondansetron HCl (Zofran) 4 mg 1X ONCE IV Last administered on 03/27/17 13:22 ; Start 03/27/17 at 13:15; Stop 03/27/17 at 13:16; Status DC Enoxaparin Sodium (Lovenox 80mg Syringe) 70 mg 1X ONCE SQ Last administered on 03/27/17 14:47; Start 03/27/17 at 14:00; Stop 03/27/17 at 14:01; Status DC Ondansetron HCl (Zofran) 4 mg PRN Q8HRS PRN IV NAUSEA/VOMITING; Start 03/27/17 at 14:00; Stop 03/27/17 at 20:47; Status DC Fentanyl Citrate (Fentanyl 2ml Vial) 50 mcg PRN Q2HR PRN IV PAIN; Start at 14:00; Stop 03/28/17 at 13:59; Status DC Acetaminophen (Tylenol) 325 mg PRN Q6HRS PRN PO MILD PAIN / TEMP; Start at 16:00 Acetaminophen/ Hydrocodone Bitart (Lortab 5/325) 1 tab PRN Q6HRS PRN PO MODERATE TO SEVERE PAIN; Start 03/27/17 at 16:00 Hydralazine HCl (Apresoline) 10 mg PRN Q4HRS PRN IVP ELEVATED BP, SEE COMMENTS ; Start 03/27/17 at 16:00 Ondansetron HCl (Zofran) 4 mg PRN Q8HRS PRN IV NAUSEA/VOMITING; Start 03/27/17 at 16:00 Albuterol Sulfate (Ventolin Neb Soln) 2.5 mg PRN Q4HRS PRN NEB SHORTNESS OF BREATH; Start 03/27/17 at 16:00 Morphine Sulfate 2 mg PRN Q2HR PRN IV PAIN; Start 03/27/17 at 18:00 Nitroglycerin (Nitrostat) 0.4 mg PRN Q5MIN PRN SL CHEST PAIN, MR X3; Start 08/03 at 18:00 Sodium Chloride (Normal Saline Flush) 3 ml QSHIFT PRN IV AFTER MEDS AND BLOOD DRAWS; Start 03/27/17 at 18:00 Enoxaparin Sodium (Lovenox Per Pharmacy Prophylaxis Dosing) 1 each PRN DAILY PRN MC SEE COMMENTS; Start 03/27/17 at 18:15 Enoxaparin Sodium (Lovenox 40mg Syringe) 40 mg Q24H SQ Last administered on 13:57; Start 03/28/17 at 15:00 Pantoprazole Sodium (Protonix) 40 mg 1X ONCE PO Last administered on t 22:26; Start 03/27/17 at 21:00; Stop 03/27/17 at 21:01; Status DC Atorvastatin Calcium (Lipitor) 40 mg QHS PO ; Start 03/28/17 at 21:00 Active Scripts Active Cyclobenzaprine Hcl 10 Mg Tablet 10 Mg PO TID PRN Naproxen 375 Mg Tablet 375 Mg PO BID PRN Erythromycin (Erythromycin Base) 3.5 Gm Oint...g. 3.5 Gm OP TID 7 Days Allergies Allergies: Coded Allergies: No Known Drug Allergies (Unverified , 02/07/16) ROS Cardiovascular: yes Chest Pain Gastrointestinal: Yes Nausea Physical Exam General: No acute distress HEENT: Atraumatic Lungs: Clear to auscultation Heart: Regular rate Abdomen: Normal bowel sounds Vitals VITALS Vital Signs Date Time Temp Pulse Resp B/P (MAP) Pulse Ox O2 Delivery O2 Flow Rate FiO2 03/28/17 11:00 97.7 58 16 117/66 (83) 98 Room Air 97.7 03/28/17 07:00 Labs Labs Laboratory Tests Test 03/27/17 13:10 03/27/17 20:00 03/28/17 02:30 03/28/17 05:15 White Blood Count 5.8 x10^3/uL (4.0-11.0) 5.4 x10^3/uL (4.0-11.0) Red Blood Count 4.82 x10^6/uL (4.30-5.70) 4.72 x10^6/uL (4.30-5.70) Hemoglobin 15.4 g/dL (13.0-17.5) 15.1 g/dL (13.0-17.5) Hematocrit 44.7 % (39.0-53.0) 44.4 % (39.0-53.0) Mean Corpuscular Volume 93 fL (79-100) 94 fL (79-100) Mean Corpuscular Hemoglobin 32 pg (25-35) 32 pg (25-35) Mean Corpuscular Hemoglobin Concent 34 g/dL (31-37) 34 g/dL (31-37) Red Cell Distribution Width 14.5 % (11.5-14.5) 14.5 % (11.5-14.5) Platelet Count 233 x10^3/uL (140-400) 222 x10^3/uL (140-400) Neutrophils (%) (Auto) 44 % (31-73) 39 % (31-73) Lymphocytes (%) (Auto) 45 % (24-48) 53 % (24-48) Monocytes (%) (Auto) 9 % (0-9) 6 % (0-9) Eosinophils (%) (Auto) 2 % (0-3) 1 % (0-3) Basophils (%) (Auto) 1 % (0-3) 1 % (0-3) Neutrophils # (Auto) 2.6 x10^3uL (1.8-7.7) 2.1 x10^3uL (1.8-7.7) Lymphocytes # (Auto) 2.6 x10^3/uL (1.0-4.8) 2.8 x10^3/uL (1.0-4.8) Monocytes # (Auto) 0.5 x10^3/uL (0.0-1.1) 0.3 x10^3/uL (0.0-1.1) Eosinophils # (Auto) 0.1 x10^3/uL (0.0-0.7) 0.1 x10^3/uL (0.0-0.7) Basophils # (Auto) 0.0 x10^3/uL (0.0-0.2) 0.0 x10^3/uL (0.0-0.2) Prothrombin Time 12.3 SEC (11.7-14.0) Prothromb Time International Ratio 1.0 (0.8-1.1) Activated Partial Thromboplast Time 28 SEC (24-38) Sodium Level 143 mmol/L (136-145) 142 mmol/L (136-145) Potassium Level 4.3 mmol/L (3.5-5.1) 4.5 mmol/L (3.5-5.1) Chloride Level 109 mmol/L (98-107) 107 mmol/L (98-107) Carbon Dioxide Level 31 mmol/L (21-32) 28 mmol/L (21-32) Anion Gap 3 (6-14) 7 (6-14) Blood Urea Nitrogen 7 mg/dL (8-26) 11 mg/dL (8-26) Creatinine 1.2 mg/dL (0.7-1.3) 1.3 mg/dL (0.7-1.3) Estimated GFR (Cockcroft-Gault) 76.9 70.1 BUN/Creatinine Ratio 6 (6-20) Glucose Level 76 mg/dL (70-99) 78 mg/dL (70-99) Calcium Level 8.7 mg/dL (8.5-10.1) 8.6 mg/dL (8.5-10.1) Magnesium Level 1.9 mg/dL (1.8-2.4) Total Bilirubin 0.3 mg/dL (0.2-1.0) Aspartate Amino Transf (AST/SGOT) 20 U/L (15-37) Alanine Aminotransferase (ALT/SGPT) 30 U/L (16-63) Alkaline Phosphatase 51 U/L (46-116) Creatine Kinase 533 U/L (39-308) Troponin I Quantitative 0.168 ng/mL (0.000-0.055) 0.117 ng/mL (0.000-0.055) 0.149 ng/mL (0.000-0.055) GO-Vrr-E-Type Natriuretic Peptide 173 pg/mL (0-124) Total Protein 7.1 g/dL (6.4-8.2) Albumin 3.5 g/dL (3.4-5.0) Albumin/Globulin Ratio 1.0 (1.0-1.7) Lipase 325 U/L (73-393) Ethyl Alcohol Level < 10 mg/dL (0-10) Triglycerides Level 178 mg/dL (0-150) Cholesterol Level 175 mg/dL (0-200) LDL Cholesterol, Calculated 106 mg/dL (0-100) VLDL Cholesterol, Calculated 36 mg/dL (0-40) Non-HDL Cholesterol Calculated 142 mg/dL (0-129) HDL Cholesterol 33 mg/dL (40-60) Cholesterol/HDL Ratio 5.3 Test 03/28/17 06:00 Thyroid Stimulating Hormone (TSH) 1.277 uIU/mL (0.358-3.74) Free Thyroxine 0.97 ng/dL (0.76-1.46) Laboratory Tests Test 03/27/17 20:00 03/28/17 02:30 03/28/17 05:15 03/28/17 06:00 Troponin I Quantitative 0.117 ng/mL (0.000-0.055) 0.149 ng/mL (0.000-0.055) White Blood Count 5.4 x10^3/uL (4.0-11.0) Red Blood Count 4.72 x10^6/uL (4.30-5.70) Hemoglobin 15.1 g/dL (13.0-17.5) Hematocrit 44.4 % (39.0-53.0) Mean Corpuscular Volume 94 fL (79-100) Mean Corpuscular Hemoglobin 32 pg (25-35) Mean Corpuscular Hemoglobin Concent 34 g/dL (31-37) Red Cell Distribution Width 14.5 % (11.5-14.5) Platelet Count 222 x10^3/uL (140-400) Neutrophils (%) (Auto) 39 % (31-73) Lymphocytes (%) (Auto) 53 % (24-48) Monocytes (%) (Auto) 6 % (0-9) Eosinophils (%) (Auto) 1 % (0-3) Basophils (%) (Auto) 1 % (0-3) Neutrophils # (Auto) 2.1 x10^3uL (1.8-7.7) Lymphocytes # (Auto) 2.8 x10^3/uL (1.0-4.8) Monocytes # (Auto) 0.3 x10^3/uL (0.0-1.1) Eosinophils # (Auto) 0.1 x10^3/uL (0.0-0.7) Basophils # (Auto) 0.0 x10^3/uL (0.0-0.2) Sodium Level 142 mmol/L (136-145) Potassium Level 4.5 mmol/L (3.5-5.1) Chloride Level 107 mmol/L (98-107) Carbon Dioxide Level 28 mmol/L (21-32) Anion Gap 7 (6-14) Blood Urea Nitrogen 11 mg/dL (8-26) Creatinine 1.3 mg/dL (0.7-1.3) Estimated GFR (Cockcroft-Gault) 70.1 Glucose Level 78 mg/dL (70-99) Calcium Level 8.6 mg/dL (8.5-10.1) Triglycerides Level 178 mg/dL (0-150) Cholesterol Level 175 mg/dL (0-200) LDL Cholesterol, Calculated 106 mg/dL (0-100) VLDL Cholesterol, Calculated 36 mg/dL (0-40) Non-HDL Cholesterol Calculated 142 mg/dL (0-129) HDL Cholesterol 33 mg/dL (40-60) Cholesterol/HDL Ratio 5.3 Thyroid Stimulating Hormone (TSH) 1.277 uIU/mL (0.358-3.74) Free Thyroxine 0.97 ng/dL (0.76-1.46) Images Images Chest x-ray shows no acute changes. Assessment/Plan Assessment/Plan 1. Chest pain. The patient's pain has significantly improved. His troponin is borderline. EKG however shows T-wave inversion and nonspecific ST segment changes. He does have risk factors of hypertension and possible hyperlipidemia. At this time we'll continue present medications. I believe cardiac catheterization is appropriate and the patient's this patient. Risks and benefits have been discussed with the patient have cardiac catheterization and possible revascularization. He is considering catheterization in the morning. 2. Hypertension. Patient's blood pressures under better control. We'll continue to adjust medications as stated. 3. History of mild COPD. Have discussed tobacco abuse with the patient. Thank you for allowing us to participate in the care of your pleasant patient. AME BROWN MD Mar 28, 2017 14:47
[2017-03-28 15:00] VITALS: BP 114/60
[2017-03-28] MEDS ORDERED: ENOXAPARIN 40 MG/0.4 ML SYRINGE. SQ SCH (15:00)
--- NOTE | 2017-03-28 17:19 | CARD ---
APPROVED REPORT EXAM: Two-dimensional and M-mode echocardiogram with Doppler and color Doppler. Other Information Quality : AverageHR: 56bpm Rhythm : NSR INDICATION Non STEMI 2D DIMENSIONS Left Atrium(2D)3.9 (1.6-4.0cm)IVSd1.1 (0.7-1.1cm) Aortic Root(2D)2.8 (2.0-3.7cm)LVDd4.8 (3.9-5.9cm) LVOT Diameter2.0 (1.8-2.4cm)PWd1.0 (0.7-1.1cm) LVDs3.1 (2.5-4.0cm)FS (%) 35.7 % SV71.3 mlLVEF(%)65.1 (>50%) M-Mode DIMENSIONS Aortic Cusp Exc1.58 (1.5-2.0cm) Aortic Valve AoV Peak Hi.188.8cm/sAoV VTI31.4cm AO Peak GR.14.3mmHgLVOT VTI 21.42cm AO Mean GR.6mmHg Mitral Valve MV E Nctlriao47.2cm/sMV DECEL [id number] MV A Qecohdxo16.4cm/sE/A Ratio1.0 MV A Ohxhfojh26rr TDI Lateral E' P. V9.72cm/sMedial E' P. V7.34cm/s Pulmonary Valve PV Peak Hvsrzpuw057.3cm/s Pulmonary Vein S1 Krtwunhs38.7cm/sS2 Bbtvzjfv33.45cm/s D2 Qndvrnsk78.5cm/s LEFT VENTRICLE The left ventricle is normal size. There is normal left ventricular wall thickness. The left ventricu lar systolic function is normal and the ejection fraction is within normal range. LV ejection fractio n is 55-60%. There is normal LV segmental wall motion. The left ventricular diastolic function and fi lling is normal for age. No left ventricle thrombus noted on this study. There is no ventricular sept al defect visualized. There is no left ventricular aneurysm. There is no mass noted in the left ventr icle. RIGHT VENTRICLE The right ventricle is normal size. The right ventricular systolic function is normal. ATRIA The left atrium size is normal. The right atrium size is normal. AORTIC VALVE The aortic valve is normal in structure and function. Doppler and Color Flow revealed no significant aortic regurgitation. There is no significant aortic valvular stenosis. There is no aortic valvular v egetation. MITRAL VALVE The mitral valve is normal in structure and function. There is no evidence of mitral valve prolapse. There is no mitral valve stenosis. Doppler and Color Flow revealed no mitral valve regurgitation note d. TRICUSPID VALVE The tricuspid valve is normal in structure and function. Doppler and Color Flow revealed trace tricus pid regurgitation. There is no tricuspid valve prolapse or vegetation. There is no tricuspid valve st enosis. PULMONIC VALVE The pulmonary valve is normal in structure and function. Doppler and Color Flow revealed trace to mil d pulmonic valvular regurgitation. There is no pulmonic valvular stenosis. GREAT VESSELS The aortic root is normal in size. The ascending aorta is normal in size. The IVC is normal in size a nd collapses >50% with inspiration. PERICARDIAL EFFUSION There is no pleural effusion. There is no evidence of significant pericardial effusion. Critical Notification Critical Value: No <Conclusion> The left ventricle is normal size. The left ventricular systolic function is normal and the ejection fraction is within normal range. LV ejection fraction is 55-60%. There is no aortic valvular vegetation. There is no significant aortic valvular stenosis. Doppler and Color Flow revealed no mitral valve regurgitation noted. Doppler and Color Flow revealed trace tricuspid regurgitation.
[2017-03-28 19:01] VITALS: BP 147/76
[2017-03-28] MEDS ORDERED: ATORVASTATIN CALCIUM 40 MG TABLET. PO SCH (21:00)
[2017-03-28 23:10] VITALS: BP 140/68
[2017-03-29] VITALS (13 sets, daily range): BP systolic 103–158; BP diastolic 71–95
[2017-03-29 04:48] LABS: CREATININE 1.3 mg/dL (0.7-1.3); GFR 70.1; POTASSIUM 3.9 mmol/L (3.5-5.1)
[2017-03-29] MEDS ORDERED: IV NORMAL SALINE 1000ML BAG 1,000 ML IV SCH ×2 (07:30→10:41)
[2017-03-29] MEDS ORDERED: LIDOCAINE 2% 20 ML VIAL. ONE (08:50)
[2017-03-29] MEDS ORDERED: IODIXANOL 320 MG/ML 100 ML VIAL. ONE ×2 (08:50→09:42)
[2017-03-29] MEDS ORDERED: fentaNYL PF VIAL 100 MCG/2 ML VIAL ONE (08:57)
[2017-03-29] MEDS ORDERED: MIDAZOLAM HCL/PF 5 MG/5 ML VIAL. ONE (08:57)
--- NOTE | 2017-03-29 09:15 | PHYS DOC ---
MODERATE SEDATION ASSESSMENT RISKS/ALTERNATIVES Risks/Alternatives Risks and alternatives of this type of sedation and procedure discussed with: RISK/ALTERNATIVES: Patient H & P ON CHART H & P H & P on chart and reviewed for co-morbid conditions and appropriate labs. H&P ON CHART: Yes STATUS PREG STATUS ASSESSED: N/A MEDS/ALLERGIES REVIEWED Meds/Allergies Reviewed Medications and Allergies including time and route of recently administered narcotics and sedatives. MEDS/ALLERGIES REVIEWED: Yes ASA RATING ASA RATING: II AIRWAY ASSESSMENT Airway Assessment Airway patency, oral function limitations, presence of caps, crowns, dentures, partials, and ability to extend neck assessed. AIRWAY ASSESSMENT: Yes MALLAMPATI SCORE MALLAMPATI SCORE: II PRE-SEDATION ASSESSMENT PRE-SEDATION ASSESSMENT: Yes AME BROWN MD Mar 29, 2017 09:15
[2017-03-29] MEDS ORDERED: IODIXANOL 320 MG/ML 100 ML VIAL. IART ONE (09:30)
[2017-03-29] MEDS ORDERED: LIDOCAINE 2% 20 ML VIAL. IJ ONE (09:30)
[2017-03-29] MEDS ORDERED: MIDAZOLAM HCL/PF 5 MG/5 ML VIAL. IV ONE (09:30)
[2017-03-29] MEDS ORDERED: fentaNYL PF VIAL 100 MCG/2 ML VIAL IV ONE (09:30)
[2017-03-29] MEDS ORDERED: TIROFIBAN 12.5MG -0.9% NS 250 ML IV ONE (09:39)
[2017-03-29] MEDS ORDERED: TIROFIBAN 12.5MG -0.9% NS 250 ML IV PRN ×2 (09:46→10:45)
[2017-03-29] MEDS ORDERED: HEPARIN for IV BOLUS 10,000 UNIT/10 ML VIAL. ONE (09:46)
[2017-03-29] MEDS ORDERED: HEPARIN for IV BOLUS 10,000 UNIT/10 ML VIAL. IV ONE (09:48)
[2017-03-29] MEDS ORDERED: ASPIRIN 325 MG TABLET ONE (10:17)
[2017-03-29] MEDS ORDERED: TICAGRELOR 90 MG TABLET. PO ONE (10:30)
[2017-03-29] MEDS ORDERED: ASPIRIN 325 MG TABLET PO ONE (10:30)
--- NOTE | 2017-03-29 10:37 | PDOC ---
PROGRESS NOTES Chief Complaint Chief Complaint cc: chest pain A/P NSTEMI: cardiac Cath today, report pending. labs pending. Hyperlipemia: on Lipitor Vitals Vitals Vital Signs Date Time Temp Pulse Resp B/P (MAP) Pulse Ox O2 Delivery O2 Flow Rate FiO2 03/29/17 10:25 19 94 Room Air 03/29/17 10:22 57 03/29/17 07:47 97.7 127/71 (89) 97.7 03/28/17 07:00 Physical Exam General: Alert, Oriented X3, No acute distress Heart: Regular rate, Normal S1, Normal S2 Lungs: Wheezing Abdomen: Normal bowel sounds Extremities: No clubbing Labs LABS Laboratory Tests Test 03/29/17 03:35 Sodium Level 141 mmol/L (136-145) Potassium Level 3.9 mmol/L (3.5-5.1) Chloride Level 108 mmol/L (98-107) Carbon Dioxide Level 27 mmol/L (21-32) Anion Gap 6 (6-14) Blood Urea Nitrogen 11 mg/dL (8-26) Creatinine 1.3 mg/dL (0.7-1.3) Estimated GFR (Cockcroft-Gault) 70.1 Glucose Level 99 mg/dL (70-99) Calcium Level 9.0 mg/dL (8.5-10.1) Assessment and Plan Assessmemt and Plan Problems Medical Problems: (1) NSTEMI (non-ST elevated myocardial infarction) Status: Acute Problems: Comment Review of Relevant I have reviewed the following items sina (where applicable) has been applied. Labs Laboratory Tests Test 03/27/17 13:10 03/27/17 20:00 03/28/17 02:30 03/28/17 05:15 White Blood Count 5.8 x10^3/uL (4.0-11.0) 5.4 x10^3/uL (4.0-11.0) Red Blood Count 4.82 x10^6/uL (4.30-5.70) 4.72 x10^6/uL (4.30-5.70) Hemoglobin 15.4 g/dL (13.0-17.5) 15.1 g/dL (13.0-17.5) Hematocrit 44.7 % (39.0-53.0) 44.4 % (39.0-53.0) Mean Corpuscular Volume 93 fL (79-100) 94 fL (79-100) Mean Corpuscular Hemoglobin 32 pg (25-35) 32 pg (25-35) Mean Corpuscular Hemoglobin Concent 34 g/dL (31-37) 34 g/dL (31-37) Red Cell Distribution Width 14.5 % (11.5-14.5) 14.5 % (11.5-14.5) Platelet Count 233 x10^3/uL (140-400) 222 x10^3/uL (140-400) Neutrophils (%) (Auto) 44 % (31-73) 39 % (31-73) Lymphocytes (%) (Auto) 45 % (24-48) 53 % (24-48) Monocytes (%) (Auto) 9 % (0-9) 6 % (0-9) Eosinophils (%) (Auto) 2 % (0-3) 1 % (0-3) Basophils (%) (Auto) 1 % (0-3) 1 % (0-3) Neutrophils # (Auto) 2.6 x10^3uL (1.8-7.7) 2.1 x10^3uL (1.8-7.7) Lymphocytes # (Auto) 2.6 x10^3/uL (1.0-4.8) 2.8 x10^3/uL (1.0-4.8) Monocytes # (Auto) 0.5 x10^3/uL (0.0-1.1) 0.3 x10^3/uL (0.0-1.1) Eosinophils # (Auto) 0.1 x10^3/uL (0.0-0.7) 0.1 x10^3/uL (0.0-0.7) Basophils # (Auto) 0.0 x10^3/uL (0.0-0.2) 0.0 x10^3/uL (0.0-0.2) Prothrombin Time 12.3 SEC (11.7-14.0) Prothromb Time International Ratio 1.0 (0.8-1.1) Activated Partial Thromboplast Time 28 SEC (24-38) Sodium Level 143 mmol/L (136-145) 142 mmol/L (136-145) Potassium Level 4.3 mmol/L (3.5-5.1) 4.5 mmol/L (3.5-5.1) Chloride Level 109 mmol/L (98-107) 107 mmol/L (98-107) Carbon Dioxide Level 31 mmol/L (21-32) 28 mmol/L (21-32) Anion Gap 3 (6-14) 7 (6-14) Blood Urea Nitrogen 7 mg/dL (8-26) 11 mg/dL (8-26) Creatinine 1.2 mg/dL (0.7-1.3) 1.3 mg/dL (0.7-1.3) Estimated GFR (Cockcroft-Gault) 76.9 70.1 BUN/Creatinine Ratio 6 (6-20) Glucose Level 76 mg/dL (70-99) 78 mg/dL (70-99) Calcium Level 8.7 mg/dL (8.5-10.1) 8.6 mg/dL (8.5-10.1) Magnesium Level 1.9 mg/dL (1.8-2.4) Total Bilirubin 0.3 mg/dL (0.2-1.0) Aspartate Amino Transf (AST/SGOT) 20 U/L (15-37) Alanine Aminotransferase (ALT/SGPT) 30 U/L (16-63) Alkaline Phosphatase 51 U/L (46-116) Creatine Kinase 533 U/L (39-308) Troponin I Quantitative 0.168 ng/mL (0.000-0.055) 0.117 ng/mL (0.000-0.055) 0.149 ng/mL (0.000-0.055) [id number]-Type Natriuretic Peptide 173 pg/mL (0-124) Total Protein 7.1 g/dL (6.4-8.2) Albumin 3.5 g/dL (3.4-5.0) Albumin/Globulin Ratio 1.0 (1.0-1.7) Lipase 325 U/L (73-393) Ethyl Alcohol Level < 10 mg/dL (0-10) Triglycerides Level 178 mg/dL (0-150) Cholesterol Level 175 mg/dL (0-200) LDL Cholesterol, Calculated 106 mg/dL (0-100) VLDL Cholesterol, Calculated 36 mg/dL (0-40) Non-HDL Cholesterol Calculated 142 mg/dL (0-129) HDL Cholesterol 33 mg/dL (40-60) Cholesterol/HDL Ratio 5.3 Test 03/28/17 06:00 03/29/17 03:35 Thyroid Stimulating Hormone (TSH) 1.277 uIU/mL (0.358-3.74) Free Thyroxine 0.97 ng/dL (0.76-1.46) Sodium Level 141 mmol/L (136-145) Potassium Level 3.9 mmol/L (3.5-5.1) Chloride Level 108 mmol/L (98-107) Carbon Dioxide Level 27 mmol/L (21-32) Anion Gap 6 (6-14) Blood Urea Nitrogen 11 mg/dL (8-26) Creatinine 1.3 mg/dL (0.7-1.3) Estimated GFR (Cockcroft-Gault) 70.1 Glucose Level 99 mg/dL (70-99) Calcium Level 9.0 mg/dL (8.5-10.1) Laboratory Tests Test 03/29/17 03:35 Sodium Level 141 mmol/L (136-145) Potassium Level 3.9 mmol/L (3.5-5.1) Chloride Level 108 mmol/L (98-107) Carbon Dioxide Level 27 mmol/L (21-32) Anion Gap 6 (6-14) Blood Urea Nitrogen 11 mg/dL (8-26) Creatinine 1.3 mg/dL (0.7-1.3) Estimated GFR (Cockcroft-Gault) 70.1 Glucose Level 99 mg/dL (70-99) Calcium Level 9.0 mg/dL (8.5-10.1) Medications Current Medications Aspirin (Ecotrin) 325 mg 1X ONCE PO Last administered on 03/27/17 13:22; Start 03/27/17 at 13:15; Stop 03/27/17 at 13:16; Status DC Ketorolac Tromethamine (Toradol) 30 mg 1X ONCE IV Last administered on 13:22; Start 03/27/17 at 13:15; Stop 03/27/17 at 13:16; Status DC Morphine Sulfate 5 mg 1X ONCE IV Last administered on 03/27/17 13:23; Start 03/27/17 at 13:15; Stop 03/27/17 at 13:16; Status DC Ondansetron HCl (Zofran) 4 mg 1X ONCE IV Last administered on 03/27/17t 13:22 ; Start 03/27/17 at 13:15; Stop 03/27/17 at 13:16; Status DC Enoxaparin Sodium (Lovenox 80mg Syringe) 70 mg 1X ONCE SQ Last administered on 03/27/17t 14:47; Start 03/27/17 at 14:00; Stop 03/27/17 at 14:01; Status DC Ondansetron HCl (Zofran) 4 mg PRN Q8HRS PRN IV NAUSEA/VOMITING; Start 03/27/17 at 14:00; Stop 03/27/17 at 20:47; Status DC Fentanyl Citrate (Fentanyl 2ml Vial) 50 mcg PRN Q2HR PRN IV PAIN; Start at 14:00; Stop 03/28/17 at 13:59; Status DC Acetaminophen (Tylenol) 325 mg PRN Q6HRS PRN PO MILD PAIN / TEMP; Start at 16:00 Acetaminophen/ Hydrocodone Bitart (Lortab 5/325) 1 tab PRN Q6HRS PRN PO MODERATE TO SEVERE PAIN; Start 03/27/17 at 16:00 Hydralazine HCl (Apresoline) 10 mg PRN Q4HRS PRN IVP ELEVATED BP, SEE COMMENTS ; Start 03/27/17 at 16:00 Ondansetron HCl (Zofran) 4 mg PRN Q8HRS PRN IV NAUSEA/VOMITING; Start 03/27/17 at 16:00 Albuterol Sulfate (Ventolin Neb Soln) 2.5 mg PRN Q4HRS PRN NEB SHORTNESS OF BREATH; Start 03/27/17 at 16:00 Morphine Sulfate 2 mg PRN Q2HR PRN IV PAIN; Start 03/27/17 at 18:00 Nitroglycerin (Nitrostat) 0.4 mg PRN Q5MIN PRN SL CHEST PAIN, MR X3; Start 08/03 at 18:00 Sodium Chloride (Normal Saline Flush) 3 ml QSHIFT PRN IV AFTER MEDS AND BLOOD DRAWS; Start 03/27/17 at 18:00 Enoxaparin Sodium (Lovenox Per Pharmacy Prophylaxis Dosing) 1 each PRN DAILY PRN MC SEE COMMENTS; Start 03/27/17 at 18:15 Enoxaparin Sodium (Lovenox 40mg Syringe) 40 mg Q24H SQ Last administered on 13:57; Start 03/28/17 at 15:00 Pantoprazole Sodium (Protonix) 40 mg 1X ONCE PO Last administered on 22:26; Start 03/27/17 at 21:00; Stop 03/27/17 at 21:01; Status DC Atorvastatin Calcium (Lipitor) 40 mg QHS PO Last administered on 03/28/17 20: 50; Start 03/28/17 at 21:00 Sodium Chloride 1,000 ml @ 75 mls/hr [id number] IV Last administered on 08:30; Start 03/29/17 at 07:30 Heparin Sodium/ Sodium Chloride 500 ml @ As Directed STK-MED ONCE .ROUTE ; Start 03/29/17 at 08:50; Stop 03/29/17 at 08:51; Status DC Lidocaine HCl 20 ml STK-MED ONCE .ROUTE ; Start 03/29/17 at 08:50; Stop at 08:51; Status DC Iodixanol (Visipaque 320) 100 ml STK-MED ONCE .ROUTE ; Start 03/29/17 at 08:50; Stop 03/29/17 at 08:51; Status DC Heparin Sodium/ Sodium Chloride 500 ml @ As Directed STK-MED ONCE .ROUTE ; Start 03/29/17 at 08:50; Stop 03/29/17 at 08:51; Status DC Fentanyl Citrate (Fentanyl 2ml Vial) 100 mcg STK-MED ONCE .ROUTE ; Start at 08:57; Stop 03/29/17 at 08:58; Status DC Midazolam HCl (Versed) 5 mg STK-MED ONCE .ROUTE ; Start 03/29/17 at 08:57; Stop 03/29/17 at 08:58; Status DC Heparin Sodium/ Sodium Chloride 1,000 unit 1X ONCE IART Last administered on 10:25; Start 03/29/17 at 09:30; Stop 03/29/17 at 09:32; Status DC Heparin Sodium/ Sodium Chloride 1,000 unit 1X ONCE IART Last administered on 10:25; Start 03/29/17 at 09:30; Stop 03/29/17 at 09:32; Status DC Midazolam HCl (Versed) 5 mg 1X ONCE IV Last administered on 03/29/17 10:25; Start 03/29/17 at 09:30; Stop 03/29/17 at 09:32; Status DC Fentanyl Citrate (Fentanyl 2ml Vial) 100 mcg 1X ONCE IV Last administered on 10:25; Start 03/29/17 at 09:30; Stop 03/29/17 at 09:32; Status DC Iodixanol (Visipaque 320) 100 ml 1X ONCE IART Last administered on 03/29/17 10:24; Start 03/29/17 at 09:30; Stop 03/29/17 at 09:32; Status DC Lidocaine HCl 20 ml 1X ONCE IJ Last administered on 03/29/17 10:24; Start 10/03 at 09:30; Stop 03/29/17 at 09:32; Status DC Tirofiban/Sodium Chloride 250 ml @ As Directed STK-MED ONCE IV ; Start at 09:39; Stop 03/29/17 at 09:40; Status DC Iodixanol (Visipaque 320) 100 ml STK-MED ONCE .ROUTE ; Start 03/29/17 at 09:42; Stop 03/29/17 at 09:43; Status DC Heparin Sodium (Porcine) (Heparin Sodium) 10,000 unit STK-MED ONCE .ROUTE ; Start 03/29/17 at 09:46; Stop 03/29/17 at 09:47; Status DC Heparin Sodium (Porcine) (Heparin Sodium) 4,000 unit 1X ONCE IV Last administered on 03/29/17 10:27; Start 03/29/17 at 09:48; Stop 03/29/17 at 10:01 ; Status DC Tirofiban/Sodium Chloride 250 ml @ 0 mls/hr CONT PRN IV PER PROTOCOL; Start 10/03 at 09:46; Stop 03/30/17 at 03:45 Ticagrelor (Brilinta) 180 mg 1X ONCE PO Last administered on 03/29/17 10:31; Start 03/29/17 at 10:30; Stop 03/29/17 at 10:31; Status DC Aspirin (Lorelei Aspirin) 325 mg 1X ONCE PO Last administered on 03/29/17t 10:30 ; Start 03/29/17 at 10:30; Stop 03/29/17 at 10:31; Status DC Aspirin (Lorelei Aspirin) 325 mg STK-MED ONCE .ROUTE ; Start 03/29/17 at 10:17; Stop 03/29/17 at 10:18; Status DC Active Scripts Active Cyclobenzaprine Hcl 10 Mg Tablet 10 Mg PO TID PRN Naproxen 375 Mg Tablet 375 Mg PO BID PRN Erythromycin (Erythromycin Base) 3.5 Gm Oint...g. 3.5 Gm OP TID 7 Days Vitals/I & O Vital Sign - Last 24 Hours 03/28/17 03/28/17 03/28/17 03/28/17 11:00 15:00 19:01 19:28 Temp 97.7 98.1 99.1 97.7 98.1 99.1 Pulse 58 66 66 Resp 16 16 16 B/P (MAP) 117/66 (83) 114/60 (78) 147/76 (99) Pulse Ox 98 98 97 O2 Delivery Room Air Room Air Room Air Room Air 03/28/17 03/29/17 03/29/17 03/29/17 23:10 03:17 07:47 08:00 Temp 98.8 98.3 97.7 98.8 98.3 97.7 Pulse 69 58 58 Resp 18 16 17 B/P (MAP) 140/68 (92) 138/73 (94) 127/71 (89) Pulse Ox 96 96 98 O2 Delivery Room Air Room Air Room Air Room Air 03/29/17 03/29/17 10:22 10:25 Pulse 57 Resp 16 19 Pulse Ox 94 94 O2 Delivery Room Air Room Air Intake and Output 03/28/17 03/28/17 03/29/17 15:00 23:00 07:00 Intake Total 480 ml 540 ml 900 ml Output Total 50 ml Balance 430 ml 540 ml 900 ml STEFANY WADE MD Mar 29, 2017 10:37
--- NOTE | 2017-03-29 10:41 | PDOC4 ---
Operative Note Operative Note Brief catheterization note. LV 124/22, AO 120/72. Left main. No lesions. Left anterior descending. Subtotal mid lesion. Left circumflex. Proximal 20%. Distal occlusion in a moderately small vessel. Right coronary artery. Nondominant. No lesions. Left ventriculogram. Ejection fraction 55%. 3.5 x 23 mm stent MultiLink vision to the LAD with 0% residual. Distal left circumflex lesion to be treated medically. Discussed with the patient. Post PCI protocol. Full report to follow. AME BROWN MD Mar 29, 2017 10:41
[2017-03-29] MEDS ORDERED: fentaNYL PF VIAL 100 MCG/2 ML VIAL IV PRN (10:45)
[2017-03-29] MEDS ORDERED: ATROPINE 0.5 MG/5 ML DISP.SYRIN. IV PRN (10:45)
[2017-03-29] MEDS ORDERED: ACETAMINOPHEN 325 MG TABLET. PO PRN (10:45)
[2017-03-29] MEDS ORDERED: 0.9 % SODIUM CHLORIDE 10 ML DISP.SYRIN. IV PRN (10:45)
[2017-03-29] MEDS ORDERED: NITROGLYCERIN SUBLINGUAL 0.4 MG BOTTLE OF 25. SL PRN (10:45)
[2017-03-29] MEDS ORDERED: AMIODARONE 150 MG in IV DEXTROSE 5% 100 ML IV PRN (10:45)
[2017-03-29] MEDS ORDERED: LIDOCAINE 2% 100 MG/5 ML SYRINGE. IV PRN (10:45)
[2017-03-29] MEDS: LISINOPRIL 5 MG TABLET. PO SCH (11:06)
--- NOTE | 2017-03-29 17:00 | CARD ---
APPROVED REPORT Procedures Left heart catheterization. Left ventriculogram. Selective coronary angiogram. Stenting of a subtotal mid LAD lesion. The patient is a 51-year-old male who was admitted to the hospitalist for one to 2 days of episodic c hest discomfort. His EKG showed T-wave depression in the anterior leads. Peak troponin was 0.168. In this setting cardiac catheterization and possible revascularization were recommended. Risks and benef its were discussed with the patient. He agreed has agreed to proceed. After informed consent was obtained the patient was brought to the heart catheterization lab. The are a of the right femoral artery was prepared in the usual manner with Betadine, sterile draping and loc al anesthetic. An 18-gauge needle was used to enter the right femoral artery, a wire placed and a 6 F rench sheath placed over the wire. A diagnostic 6 Tongan Nabil right catheter was used to engage t he right coronary artery and sequential injections in various obtained. A 6 Tongan 3.5 EXB guide was used to engage the left coronary system. Sequential injections in various views were obtained. A subt otal mid LAD lesion was identified. Additionally there appeared to be a distal moderately small chron ic occlusion of the left circumflex in the setting of a peak troponin of 0.168. We proceeded to revas cularize the left anterior descending lesion. Heparin and Angiomax were given as per protocol. A PT choice wire was used to cross the LAD lesion. P redilatation was with a 3.0 x 15 mm Trek balloon with 2 inflations at 8 rai for 15 seconds. A 3.5 x 23 MultiLink vision bare metal stent was then deployed with one inflation at 15 rai for 15 seconds. R esidual lesion was 0%. The distal left circumflex lesion was not intervened upon in this setting. The guiding system was removed from the patient. A pigtail catheter was advanced to the ascending aorta and the left ventricle. A 30 WOOD left ventricular gram was performed. Pullback pressures were measur ed. The catheter was removed from the patient. Injection of the sheath showed normal placement. The s yarelis was removed and sealed with an Angio-Seal product. The patient was moved to the holding area. Findings. Hemodynamics. LV 124/22, aortic root 120/72. Coronaries. Left main. The left main was a long vessel with no lesions. Left anterior descending. The LAD was a moderately large vessel with a subtotal mid lesion. Left circumflex. The left circumflex was a dominant vessel. In the distal vessel there appeared to be a chronic occlusion. This was a relatively small vessel. As noted above peak troponin during the pat ient's hospitalization for chest pain was 0.168. Right coronary artery. The right coronary was a nondominant vessel. It had no lesions. Left ventriculogram. The left ventricle showed normal systolic function with an ejection fraction estimated at 55-60%. <Conclusion> Subtotal mid LAD lesion. Successful stenting of the LAD lesion with a 0% residual. Distal moderately small chronically occluded left circumflex. Good left ventricular systolic function.
[2017-03-29] MEDS: METOPROLOL TART IMMED RELEASE 25 MG TABLET. PO SCH (20:58)
[2017-03-29] MEDS ORDERED: ATORVASTATIN CALCIUM 20 MG TABLET PO SCH (21:00)
[2017-03-30 03:32] VITALS: BP 126/79
[2017-03-30 03:55] LABS: CALCIUM 8.8 mg/dL (8.5-10.1); CREATININE 1.2 mg/dL (0.7-1.3); GFR 76.9; POTASSIUM 3.9 mmol/L (3.5-5.1)
[2017-03-30 07:47] VITALS: BP 125/73
[2017-03-30] MEDS ORDERED: ASPIRIN ENTERIC COATED 81 MG TABLET.DR. PO SCH (08:00)
[2017-03-30] MEDS: LISINOPRIL 5 MG TABLET. PO SCH (08:42)
[2017-03-30] MEDS ORDERED: TICAGRELOR 90 MG TABLET. PO SCH (09:00)
[2017-03-30] MEDS: METOPROLOL TART IMMED RELEASE 25 MG TABLET. PO SCH (09:00)
--- NOTE | 2017-03-30 09:18 | PDOC ---
CARDIO Progress Notes Date and Time Date of Service 03/30/2017 Time of Evaluation 0916 Subjective Subjective: No Chest Pain, No shortness of breath, No Palpitations Vitals Vitals Vital Signs Date Time Temp Pulse Resp B/P (MAP) Pulse Ox O2 Delivery O2 Flow Rate FiO2 03/30/17 08:48 96 Room Air 03/30/17 08:42 55 125/73 03/30/17 08:00 2.0 03/30/17 07:47 98.1 18 98.1 Weight Weight [ ] Input and Output Intake and Output Intake and Output 03/30/17 07:00 Intake Total 3634 ml Output Total 1975 ml Balance 1659 ml Intake Oral 2280 ml IV Total 1354 ml Output Urine Total 1975 ml # Voids 5 Laboratory Labs Laboratory Tests Test 03/30/17 03:05 Sodium Level 141 mmol/L (136-145) Potassium Level 3.9 mmol/L (3.5-5.1) Chloride Level 108 mmol/L (98-107) Carbon Dioxide Level 26 mmol/L (21-32) Anion Gap 7 (6-14) Blood Urea Nitrogen 10 mg/dL (8-26) Creatinine 1.2 mg/dL (0.7-1.3) Estimated GFR (Cockcroft-Gault) 76.9 Glucose Level 113 mg/dL (70-99) Calcium Level 8.8 mg/dL (8.5-10.1) Physical Exam HEENT: Neck Supple W Full Motion Chest: Symmetric LUNGS: Clear to Auscultation Heart: S1S2, RRR, no murmurs Abdomen: Soft N/T Extremities: No Edema Neurology: alert, oriented, follow commands Assessment Assessment 1. NSTEMI BMS to LAD - convert to Effient as no means to pay for Brilinta and Effient samples available distal occlusion - circ - med management. 2. bradycardia overnight decrease BB 3. HLD continue statin therapy agreeable with discharge Effient X 4 weeks ASA 81 mg indefinitely f/u in 4 weeks if willing to pay for OPV GRETA VILLARREAL APRN Mar 30, 2017 09:18
[2017-03-30] MEDS ORDERED: METOPROLOL TART IMMED RELEASE 25 MG TABLET. PO SCH ×2 (09:30→21:00)
[2017-03-30 10:46] VITALS: BP 133/71
--- NOTE | 2017-03-30 11:09 | EKG ---
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
[2017-03-30] MEDS ORDERED: LISI-338 PO (12:29)
[2017-03-30] MEDS ORDERED: ATOR20TA58 PO (12:29)
[2017-03-30] MEDS ORDERED: METO25TA4 PO (12:29)
[2017-03-30] MEDS ORDERED: PRAS10TA9 PO (12:29)
[2017-03-30] MEDS ORDERED: ASPI-612 PO (12:29)
--- NOTE | 2017-04-01 23:14 | DS ---
DATE OF DISCHARGE: 03/30/2017 DISCHARGE DIAGNOSES: 1. Chest pain due to non-ST elevation myocardial infarction with bare metal stent placement to left anterior descending. 2. Bradycardia, resolved. 3. Hyperlipidemia. BRIEF HOSPITAL COURSE: A 51-year-old -[place] male patient admitted to the hospital with chest pain and the patient had mild elevation of troponin to 0.168 with T-wave inversions in lateral leads, which could be due to repolarization changes; however, due to the patient's persistent symptoms, the patient had an echocardiogram and cardiac catheterization and also he had a mid LAD lesion, status post PCI, drug-eluting stent placed by Dr. Cervantes. Post-surgery, he tolerated very well and asymptomatic, felt better and deemed stable enough to go home. The patient has been instructed not to lift any weight for 2 weeks. DISCHARGE PHYSICAL EXAMINATION: GENERAL: Alert, oriented x 3. HEART: S1, S2 present. LUNGS: Anterior chest clear. ABDOMEN: Soft, nontender, no organomegaly. EXTREMITIES: No edema. DISCHARGE DISPOSITION: Home. DISCHARGE CONDITION: Stable. DISCHARGE MEDICATIONS: Effient for 4 weeks, aspirin 81 mg indefinitely. Scripts and samples provided. DISCHARGE DIET: Cardiac. FOLLOWUP: With primary care doctor and Cardiology as scheduled. Total time spent for discharge is 35 minutes for patient education, counseling and coordination of care. STEFANY WADE MD DR: DEUCE/migue JOB#: [id number] / [id number] BIA
== END 2017-03-30 13:50 | disposition home or self-care (01) | DRG 249 ==
LOC: ER 12:39 → 2 NORTH 13:57
PROVIDERS: ADMIT Internal Medicine; ATTEND Internal Medicine
PROC: 02703DZ Dilation of Coronary Artery, One Artery with Intraluminal Device, Percutaneous Approach (ICD-10-PCS; principal; 2017-03-29)
PROC: 4A023N7 Measurement of Cardiac Sampling and Pressure, Left Heart, Percutaneous Approach (ICD-10-PCS; 2017-03-29)
PROC: B2111ZZ Fluoroscopy of Multiple Coronary Arteries using Low Osmolar Contrast (ICD-10-PCS; 2017-03-29)
PROC: B2151ZZ Fluoroscopy of Left Heart using Low Osmolar Contrast (ICD-10-PCS; 2017-03-29)
DX: I21.4 Non-ST elevation (NSTEMI) myocardial infarction (principal); E78.5 Hyperlipidemia, unspecified; I10 Essential (primary) hypertension; J44.9 Chronic obstructive pulmonary disease, unspecified; Z79.82 Long term (current) use of aspirin; Z82.49 Family history of ischemic heart disease and other diseases of the circulatory system; Z87.891 Personal history of nicotine dependence; Z98.61 Coronary angioplasty status
CPT/HCPCS: 36415; 71010; 80048; 80053; 80061; 82550; 83690; 83735; 83880; 84439; 84443; 84484; 85027; 85347; 85610; 85730; 92928; 93005; 93306; 93458; 94250; 94760; 96372; 96374; 96375; C1725; C1769; C1771; C1877; C1887; C1892; G0269; G0480; J1650; J1885; J2250; J2270; J2405; J3010; J7030; 99285-25; J3246

== ENCOUNTER 2019-02-28 10:55 | Inpatient (IN) | payer SELFPAY ==
[~2019-02-28] VITALS: Ht 180.3 cm; Wt 64.5 kg
[~2019-02-28 10:55] MED LIST changes: +ASPI-612 PO; +ATOR20TA58 PO; +LISI-338 PO; +METO25TA4 PO; +NAPR-695 PO; -NAPR375T3 PO; +PRAS10TA9 PO
--- NOTE | 2019-02-28 11:40 | RAD ---
Single view chest dated 02/28/2019: No comparison available. Clinical Indication: Chest pain. Findings: Single upright portable exam of the chest was performed. Heart size and mediastinal contours are within normal limits given technique. The lungs are clear without evidence of focal consolidation. Vascular interstitium is within normal limits. Impression:: Negative portable chest. Electronically signed by: Brian Maxwell MD (02/28/2019 11:37 AM) [facility]
[2019-02-28 11:44] LABS: BASO # 0.1 x10^3/uL (0.0-0.2); BASO % 1 % (0-3); EOS % 0 % (0-3); HEMATOCRIT 54.3 % (39.0-53.0); HEMOGLOBIN 18.2 g/dL (13.0-17.5); LYMPH # 2.1 x10^3/uL (1.0-4.8); LYMPH % 53 % (24-48); MEAN CORPUSCULAR HEMOGLOBIN 32 pg (25-35); MEAN CORPUSCULAR HGB CONC 34 g/dL (31-37); MEAN CORPUSCULAR VOLUME 95 fL (79-100); MONO # 0.4 x10^3/uL (0.0-1.1); MONO % 10 % (0-9); NEUT # 1.5 x10^3uL (1.8-7.7); NEUT % 36 % (31-73); PLATELET COUNT 294 x10^3/uL (140-400); RED BLOOD COUNT 5.73 x10^6/uL (4.30-5.70); RED CELL DISTRIBUTION WIDTH 14.2 % (11.5-14.5); WHITE BLOOD COUNT 4.1 x10^3/uL (4.0-11.0)
--- NOTE | 2019-02-28 11:46 | PHYS DOC ---
Past Medical History Past Medical History: CAD, COPD Past Surgical History: Other Additional Past Surgical Histo: CARDIAC CATH WITH STENT PLACEMENT Additional Information: 1 PPD Alcohol Use: None Drug Use: Cocaine, Marijuana Adult General Chief Complaint Chief Complaint: DIZZY/LIGHT HEADED HPI HPI Patient is a 53 year old AAM who presents for cp. His chest has been hurting on and off for one week. Feels like stabbing. Denies sob or vomiting or fever. Denies incr pain with exertion, pain is constant. He has not been sick lately or had a cough. He does continue to smoke. He admits that he still smokes 1 PPD since his cardiac stent was placed in March of last year. He says he previously smoked 2 packs. He also admits that he has not taken any of the medications he was supposed to be on after his stent. Cardiac cath March 2018: Subtotal mid LAD lesion. Successful stenting of the LAD lesion with a 0% residual. Distal moderately small chronically occluded left circumflex. Good left ventricular systolic function. Review of Systems Review of Systems Constitutional: Denies fever or chills Eyes: Denies change in visual acuity, redness, or eye pain HENT: Denies nasal congestion or sore throat Respiratory: Denies cough or shortness of breath Cardiovascular: Endorses CP GI: Denies abdominal pain, nausea, vomiting, bloody stools or diarrhea : Denies dysuria or hematuria Musculoskeletal: Denies back pain or joint pain Integument: Denies rash or skin lesions Neurologic: Denies headache, focal weakness or sensory changes All other systems were reviewed and found to be within normal limits, except as documented in this note. Current Medications Current Medications Current Medications Medications (Trade) Dose Ordered Sig/Wayne Start Time Stop Time Status Last Admin Dose Admin Ondansetron HCl (Zofran) 4 mg 1X ONCE 02/28/19 12:30 02/28/19 12:31 DC 02/28/19 12:42 4 MG Allergies Allergies Allergies Coded Allergies Type Severity Reaction Last Updated Verified No Known Drug Allergies 02/07/16 No Physical Exam Physical Exam Constitutional: Well developed, well nourished, no acute distress, non-toxic appearance. HENT: Normocephalic, atraumatic, bilateral external ears normal, oropharynx m oist, no oral exudates, nose normal. Eyes: PERRLA, EOMI, conjunctiva normal, no discharge. Neck: Normal range of motion, no tenderness, supple, no stridor. Cardiovascular:Heart rate regular rhythm, no murmur Lungs & Thorax: Bilateral breath sounds clear to auscultation Abdomen: Bowel sounds normal, soft, no tenderness, no masses, no pulsatile masses. Skin: Warm, dry, no erythema, no rash. Back: No tenderness, no CVA tenderness. Extremities: No tenderness, no cyanosis, no clubbing, ROM intact, no edema. Neurologic: Alert and oriented X 3, normal motor function, normal sensory function, no focal deficits noted. Psychologic: Affect normal, judgement normal, mood normal. Current Patient Data Vital Signs Vital Signs Date Time Temp Pulse Resp B/P (MAP) Pulse Ox O2 Delivery O2 Flow Rate FiO2 02/28/19 13:30 66 21 98 02/28/19 11:02 97.5 114/75 (88) Room Air 97.5 Lab Values Laboratory Tests Test 02/28/19 10:34 02/28/19 11:34 White Blood Count 4.1 x10^3/uL (4.0-11.0) Red Blood Count 5.73 x10^6/uL (4.30-5.70) H Hemoglobin 18.2 g/dL (13.0-17.5) H Hematocrit 54.3 % (39.0-53.0) H Mean Corpuscular Volume 95 fL (79-100) Mean Corpuscular Hemoglobin 32 pg (25-35) Mean Corpuscular Hemoglobin Concent 34 g/dL (31-37) Red Cell Distribution Width 14.2 % (11.5-14.5) Platelet Count 294 x10^3/uL (140-400) Neutrophils (%) (Auto) 36 % (31-73) Lymphocytes (%) (Auto) 53 % (24-48) H Monocytes (%) (Auto) 10 % (0-9) H Eosinophils (%) (Auto) 0 % (0-3) Basophils (%) (Auto) 1 % (0-3) Neutrophils # (Auto) 1.5 x10^3uL (1.8-7.7) L Lymphocytes # (Auto) 2.1 x10^3/uL (1.0-4.8) Monocytes # (Auto) 0.4 x10^3/uL (0.0-1.1) Eosinophils # (Auto) 0.0 x10^3/uL (0.0-0.7) Basophils # (Auto) 0.1 x10^3/uL (0.0-0.2) Sodium Level 140 mmol/L (136-145) Potassium Level 3.9 mmol/L (3.5-5.1) Chloride Level 97 mmol/L (98-107) L Carbon Dioxide Level 34 mmol/L (21-32) H Anion Gap 9 (6-14) Blood Urea Nitrogen 23 mg/dL (8-26) Creatinine 1.5 mg/dL (0.7-1.3) H Estimated GFR (Cockcroft-Gault) 59.0 BUN/Creatinine Ratio 15 (6-20) Glucose Level 90 mg/dL (70-99) Calcium Level 10.2 mg/dL (8.5-10.1) H Magnesium Level 2.4 mg/dL (1.8-2.4) Total Bilirubin 1.4 mg/dL (0.2-1.0) H Aspartate Amino Transferase (AST) 22 U/L (15-37) Alanine Aminotransferase (ALT) 26 U/L (16-63) Alkaline Phosphatase 57 U/L (46-116) TX-Rqb-T-Type Natriuretic Peptide 54 pg/mL (0-124) Total Protein 8.3 g/dL (6.4-8.2) H Albumin 4.2 g/dL (3.4-5.0) Albumin/Globulin Ratio 1.0 (1.0-1.7) Lipase 100 U/L (73-393) POC Troponin I 0.01 ng/ml (<0.08) Laboratory Tests 02/28/19 10:34 Laboratory Tests 02/28/19 10:34 EKG EKG [] Radiology/Procedures Radiology/Procedures [] Course & Med Decision Making Course & Med Decision Making Pertinent Labs and Imaging studies reviewed. (See chart for details) 53 y/o M with h/o LAD stent presents for CP, admits to noncompliance with antiplatelet therapy since his stent last year. EKG shows sinus rhythm 61 bpm, LVH, ST depr in II, III, aVF. Admit for obs for ACS rule out. Dragon Disclaimer Dragon Disclaimer This electronic medical record was generated, in whole or in part, using a voice recognition dictation system. Departure Departure Impression: Primary Impression: Chest pain Disposition: 09 ADMITTED INPATIENT Admitting Physician: Viridiana Cruz Condition: GOOD Referrals: NO PCP (PCP) FRANCIE MARTIN MD February 28, 2019 11:46
[2019-02-28 12:11] LABS: CALCIUM 10.2 mg/dL (8.5-10.1); CREATININE 1.5 mg/dL (0.7-1.3); POTASSIUM 3.9 mmol/L (3.5-5.1)
[2019-02-28 12:13] LABS: ALBUMIN 4.2 g/dL (3.4-5.0); MAGNESIUM 2.4 mg/dL (1.8-2.4); TOTAL BILIRUBIN 1.4 mg/dL (0.2-1.0); TOTAL PROTEIN 8.3 g/dL (6.4-8.2)
[2019-02-28] MEDS ORDERED: ONDANSETRON PF 4 MG/2 ML VIAL. IV ONE (12:30)
--- NOTE | 2019-02-28 12:31 | EKG ---
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
[2019-02-28 17:00] VITALS: BP 142/73
[2019-02-28] MEDS ORDERED: MORPHINE SULFATE 4 MG/ML VIAL. IV PRN (17:15)
--- NOTE | 2019-02-28 17:23 | PDOC1 ---
History and Physical Date of Admission Date of Admission DATE: 02/28/19 TIME: 17:15 Source Source: Chart review, Patient History of Present Illness History of Present Illness Mr Fonseca is a 53 year old AAM who presents for pain, chest pain and abdominal pain, over a week of pain, he thinks he has lost 10 pounds inthe past week and 60 lbs this year. the chest pain is 7/10 Feels like stabbing and he request pain meds, pain is better after meds in the ER, some intermittent, reported constant before. 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[employer], has been depressed and has not been compliant with meds or f/u, not taking any meds recently from his girlfriend, he reports having 21 kids from 18 different women Past Medical History Cardiovascular: HTN Pulmonary: COPD Past Surgical History Past Surgical History: No pertinent history Family History Family History: Heart Disease Social History Smoke: <1 pack per day ALCOHOL: rare Drugs: None Current Problem List Problem List Problems Medical Problems: (1) Chest pain Status: Acute Current Medications Current Medications Current Medications Ondansetron HCl (Zofran) 4 mg 1X ONCE IV Last administered on 02/28/19at 12:42; Start 02/28/19 at 12:30; Stop 02/28/19 at 12:31; Status DC Aspirin (Lorelei Aspirin) 325 mg 1X ONCE PO ; Start 02/28/19 at 17:30; Stop 02/28/19 at 17:31 Aspirin (Lorelei Aspirin) 325 mg DAILYWBKFT PO ; Start 03/01/19 at 08:00 Albuterol/ Ipratropium (Duoneb) 3 ml RTQID NEB ; Start 02/28/19 at 20:00 Enoxaparin Sodium (Lovenox Per Pharmacy Prophylaxis Dosing) 1 each PRN DAILY PRN MC SEE COMMENTS; Start 02/28/19 at 17:00; Stop 02/28/19 at 17:00; Status DC Enoxaparin Sodium (Lovenox 40mg Syringe) 40 mg Q24H SQ ; Start 02/28/19 at 21:00 Active Scripts Active Effient (Prasugrel Hcl) 10 Mg Tablet 1 Tab PO DAILY Metoprolol Tartrate 25 Mg Tablet 12.5 Mg PO BID 30 Days Lisinopril 5 Mg Tablet 5 Mg PO DAILY 30 Days Atorvastatin Calcium 20 Mg Tablet 20 Mg PO QHS 30 Days Aspirin Ec (Aspirin) 81 Mg Tablet.dr 81 Mg PO DAILYWBKFT 30 Days Cyclobenzaprine Hcl 10 Mg Tablet 10 Mg PO TID PRN Erythromycin (Erythromycin Base) 3.5 Gm Oint...g. 3.5 Gm OP TID 7 Days Allergies Allergies: Coded Allergies: No Known Drug Allergies (Unverified , 02/07/16) ROS General: YES: Chills, Fatigue, Malaise PSYCHOLOGICAL ROS: YES: Depression, Memory difficulties, Sleep disturbances Eyes: No Blurry vision, No Decreased vision, No Double vision, No Dry eyes, No Excessive tearing, No Eye Pain, No Itchy Eyes, No Loss of vision, No Photophobia, No Scotomata, No Uses contacts, No Uses glasses, No Other HEENT: No: Heacaches, Visual Changes, Hearing change, Nasal congestion, Nasal discharge, Oral lesions, Sinus pain, Sore Throat, Epistaxis, Sneezing, Snoring, Tinnitus, Vertigo, Vocal changes, Other Cardiovascular: yes Chest Pain; No Palpitations, No Orthopnea, No Paroxysmal Noc. Dyspnea, No Edema, No Lt Headedness, No Other Gastrointestinal: Yes Nausea, Yes Abdominal Pain Genitourinary: No Dysuria, No Frequency, No Incontinence, No Hematuria, No Retention, No Discharge, No Urgency, No Pain, No Flank Pain, No Other, No , No , No , No , No , No , No Musculoskeletal: No Gait Disturbance, No Joint Pain, No Joint Stiffness, No Joint Swelling, No Muscle Pain, No Muscular Weakness, No Pain In:, No Swelling In:, No Other Neurological: No Behavorial Changes, No Bowel/Bladder ControlChng, No C onfusion, No Dizziness, No Gait Disturbance, No Headaches, No Impaired Coord/balance, No Memory Loss, No Numbness/Tingling, No Seizures, No Speech Problems, No Tremors, No Visual Changes, No Weakness, No Other Skin: Yes Dry Skin; No Eczema, No Hair Changes, No Lumps, No Mole Changes, No Mottling, No Nail Changes, No Pruritus, No Rash, No Skin Lesion Changes, No Other, No Acne Physical Exam General: Alert, Oriented X3, Cooperative, mild distress HEENT: [place], EOMI Lungs: Clear to auscultation, Normal air movement Heart: S1S2, no gallops Extremities: No edema Skin: No rashes, No significant lesion Neuro: Normal speech, Normal tone, Sensation intact Psych/Mental Status: Mood NL, Other (flat withdrawn affect) Vitals Vitals Vital Signs Date Time Temp Pulse Resp B/P (MAP) Pulse Ox O2 Delivery O2 Flow Rate FiO2 02/28/19 15:30 72 24 97 02/28/19 11:02 97.5 114/75 (88) Room Air 97.5 Labs Labs Laboratory Tests Test 02/28/19 10:34 02/28/19 11:34 White Blood Count 4.1 x10^3/uL (4.0-11.0) Red Blood Count 5.73 x10^6/uL (4.30-5.70) Hemoglobin 18.2 g/dL (13.0-17.5) Hematocrit 54.3 % (39.0-53.0) Mean Corpuscular Volume 95 fL (79-100) Mean Corpuscular Hemoglobin 32 pg (25-35) Mean Corpuscular Hemoglobin Concent 34 g/dL (31-37) Red Cell Distribution Width 14.2 % (11.5-14.5) Platelet Count 294 x10^3/uL (140-400) Neutrophils (%) (Auto) 36 % (31-73) Lymphocytes (%) (Auto) 53 % (24-48) Monocytes (%) (Auto) 10 % (0-9) Eosinophils (%) (Auto) 0 % (0-3) Basophils (%) (Auto) 1 % (0-3) Neutrophils # (Auto) 1.5 x10^3uL (1.8-7.7) Lymphocytes # (Auto) 2.1 x10^3/uL (1.0-4.8) Monocytes # (Auto) 0.4 x10^3/uL (0.0-1.1) Eosinophils # (Auto) 0.0 x10^3/uL (0.0-0.7) Basophils # (Auto) 0.1 x10^3/uL (0.0-0.2) Sodium Level 140 mmol/L (136-145) Potassium Level 3.9 mmol/L (3.5-5.1) Chloride Level 97 mmol/L (98-107) Carbon Dioxide Level 34 mmol/L (21-32) Anion Gap 9 (6-14) Blood Urea Nitrogen 23 mg/dL (8-26) Creatinine 1.5 mg/dL (0.7-1.3) Estimated GFR (Cockcroft-Gault) 59.0 BUN/Creatinine Ratio 15 (6-20) Glucose Level 90 mg/dL (70-99) Calcium Level 10.2 mg/dL (8.5-10.1) Magnesium Level 2.4 mg/dL (1.8-2.4) Total Bilirubin 1.4 mg/dL (0.2-1.0) Aspartate Amino Transf (AST/SGOT) 22 U/L (15-37) Alanine Aminotransferase (ALT/SGPT) 26 U/L (16-63) Alkaline Phosphatase 57 U/L (46-116) YK-Qhj-D-Type Natriuretic Peptide 54 pg/mL (0-124) Total Protein 8.3 g/dL (6.4-8.2) Albumin 4.2 g/dL (3.4-5.0) Albumin/Globulin Ratio 1.0 (1.0-1.7) Lipase 100 U/L (73-393) Bedside Troponin I 0.01 ng/ml (<0.08) Laboratory Tests Test 02/28/19 10:34 02/28/19 11:34 White Blood Count 4.1 x10^3/uL (4.0-11.0) Red Blood Count 5.73 x10^6/uL (4.30-5.70) Hemoglobin 18.2 g/dL (13.0-17.5) Hematocrit 54.3 % (39.0-53.0) Mean Corpuscular Volume 95 fL (79-100) Mean Corpuscular Hemoglobin 32 pg (25-35) Mean Corpuscular Hemoglobin Concent 34 g/dL (31-37) Red Cell Distribution Width 14.2 % (11.5-14.5) Platelet Count 294 x10^3/uL (140-400) Neutrophils (%) (Auto) 36 % (31-73) Lymphocytes (%) (Auto) 53 % (24-48) Monocytes (%) (Auto) 10 % (0-9) Eosinophils (%) (Auto) 0 % (0-3) Basophils (%) (Auto) 1 % (0-3) Neutrophils # (Auto) 1.5 x10^3uL (1.8-7.7) Lymphocytes # (Auto) 2.1 x10^3/uL (1.0-4.8) Monocytes # (Auto) 0.4 x10^3/uL (0.0-1.1) Eosinophils # (Auto) 0.0 x10^3/uL (0.0-0.7) Basophils # (Auto) 0.1 x10^3/uL (0.0-0.2) Sodium Level 140 mmol/L (136-145) Potassium Level 3.9 mmol/L (3.5-5.1) Chloride Level 97 mmol/L (98-107) Carbon Dioxide Level 34 mmol/L (21-32) Anion Gap 9 (6-14) Blood Urea Nitrogen 23 mg/dL (8-26) Creatinine 1.5 mg/dL (0.7-1.3) Estimated GFR (Cockcroft-Gault) 59.0 BUN/Creatinine Ratio 15 (6-20) Glucose Level 90 mg/dL (70-99) Calcium Level 10.2 mg/dL (8.5-10.1) Magnesium Level 2.4 mg/dL (1.8-2.4) Total Bilirubin 1.4 mg/dL (0.2-1.0) Aspartate Amino Transf (AST/SGOT) 22 U/L (15-37) Alanine Aminotransferase (ALT/SGPT) 26 U/L (16-63) Alkaline Phosphatase 57 U/L (46-116) LE-Xwe-G-Type Natriuretic Peptide 54 pg/mL (0-124) Total Protein 8.3 g/dL (6.4-8.2) Albumin 4.2 g/dL (3.4-5.0) Albumin/Globulin Ratio 1.0 (1.0-1.7) Lipase 100 U/L (73-393) Bedside Troponin I 0.01 ng/ml (<0.08) VTE Prophylaxis Ordered VTE Prophylaxis Devices: Yes VTE Pharmacological Prophylaxi: Yes Assessment/Plan Assessment/Plan 60 lbs weight loss with chest pain abd pain and nausea hyperkalemia concerning for malignancy, check Ca 19-9, may need CT C/a/p will consult for others to eval marked depression, major depression has avoided doctors and has not been compliant with meds after his heart attack last year tobacco use disorder HEIKE KIMBLE MD February 28, 2019 17:23
[2019-02-28] MEDS ORDERED: ASPIRIN 325 MG TABLET PO ONE (17:30)
[2019-02-28] MEDS ORDERED: IPRATRPIUM/ALBUTEROL 0.5/2.5MG 3 ML NEBU. ONE (18:00)
[2019-02-28] MEDS: oxyCODONE/APAP 5/325 1 TAB TABLET PO PRN ×2 (18:06→22:52)
[2019-02-28 19:15] VITALS: BP 131/78
[2019-02-28 20:48] LABS: BILIRUBIN,URINE SMALL (NEG); CLARITY,URINE CLEAR; COLOR,URINE AMBER; NITRITE,URINE NEGATIVE (NEG); PROTEIN,URINE 30 mg/dL (NEG-TRACE)
[2019-02-28 20:55] LABS: SQUAMOUS EPITHELIAL CELL,UR FEW /LPF
[2019-02-28 20:56] LABS: BACTERIA,URINE 0 /HPF (0-FEW); RBC,URINE RARE /HPF (0-2)
[2019-02-28] MEDS: ENOXAPARIN 40 MG/0.4 ML SYRINGE. SQ SCH (21:06)
[2019-02-28 23:05] VITALS: BP 140/72
[2019-03-01] VITALS (16 sets, daily range): BP systolic 118–143; BP diastolic 71–93
[2019-03-01 06:17] LABS: BASO # 0.1 x10^3/uL (0.0-0.2); BASO % 1 % (0-3); EOS % 1 % (0-3); HEMATOCRIT 49.5 % (39.0-53.0); HEMOGLOBIN 17.1 g/dL (13.0-17.5); LYMPH # 2.6 x10^3/uL (1.0-4.8); LYMPH % 61 % (24-48); MEAN CORPUSCULAR HEMOGLOBIN 33 pg (25-35); MEAN CORPUSCULAR HGB CONC 35 g/dL (31-37); MEAN CORPUSCULAR VOLUME 95 fL (79-100); MONO # 0.4 x10^3/uL (0.0-1.1); MONO % 8 % (0-9); NEUT # 1.2 x10^3uL (1.8-7.7); NEUT % 28 % (31-73); PLATELET COUNT 263 x10^3/uL (140-400); RED BLOOD COUNT 5.22 x10^6/uL (4.30-5.70); RED CELL DISTRIBUTION WIDTH 13.9 % (11.5-14.5); WHITE BLOOD COUNT 4.2 x10^3/uL (4.0-11.0)
[2019-03-01 06:44] LABS: ALBUMIN 3.5 g/dL (3.4-5.0); ALBUMIN/GLOBULIN RATIO 0.9 (1.0-1.7); CALCIUM 9.2 mg/dL (8.5-10.1); CREATININE 1.1 mg/dL (0.7-1.3); GFR 84.4; POTASSIUM 3.5 mmol/L (3.5-5.1); TOTAL BILIRUBIN 1.2 mg/dL (0.2-1.0); TOTAL PROTEIN 7.6 g/dL (6.4-8.2)
[2019-03-01] MEDS: IPRATRPIUM/ALBUTEROL 0.5/2.5MG 3 ML NEBU. NEB SCH ×4 (07:42→20:06)
[2019-03-01] MEDS: ASPIRIN 325 MG TABLET PO SCH (08:12)
--- NOTE | 2019-03-01 09:18 | PDOC2 ---
GI CONSULT Reason For Consult: Nausea, abd pain, weight loss HPI: HPI: 53 y/o male admitted w/ chest pain. GI-lai, issues w/ vomiting x 1 week w/ a couple days of feeling achy prior to this. Currently feels better, is very hungry. Typically no GI issues - denies reflux/heartburn, dysphagia, chronic n/v, abd pain, diarrhea, constipation, hematochezia, and melena. Has lost >100 lbs in 6 months, attributes to stress. No previous EGD or colonoscopy. No GB, liver, pancreas, or PUD history. Previously on ASA and Effient, has not been taking. PMH: PMH: CAD w/ stent, HTN, COPD, HLD cardiac cath FH: Family History: Cancer (father - colon) Social History: Smoke: 1 pack per day ALCOHOL: rare Drugs: Marijuana ROS: GEN: Denies fevers, chills, sweats HEENT: Denies blurred vision, sore throat CV: +chest pain RESP: Denies shortness of air, cough GI: Per HPI : Denies hematuria, dysuria ENDO: +weight loss NEURO: Denies confusion, dizziness MSK: Denies weakness, joint pain/swelling SKIN: Denies jaundice, pruritus Vitals: Vitals: Vital Signs Date Time Temp Pulse Resp B/P (MAP) Pulse Ox O2 Delivery O2 Flow Rate FiO2 03/01/19 07:47 Room Air 03/01/19 07:42 100 03/01/19 07:00 98.1 69 16 132/83 (99) 98.1 Labs: Labs: Laboratory Tests Test 02/28/19 10:34 02/28/19 11:34 02/28/19 19:20 03/01/19 05:45 White Blood Count 4.1 x10^3/uL (4.0-11.0) 4.2 x10^3/uL (4.0-11.0) Red Blood Count 5.73 x10^6/uL (4.30-5.70) 5.22 x10^6/uL (4.30-5.70) Hemoglobin 18.2 g/dL (13.0-17.5) 17.1 g/dL (13.0-17.5) Hematocrit 54.3 % (39.0-53.0) 49.5 % (39.0-53.0) Mean Corpuscular Volume 95 fL (79-100) 95 fL (79-100) Mean Corpuscular Hemoglobin 32 pg (25-35) 33 pg (25-35) Mean Corpuscular Hemoglobin Concent 34 g/dL (31-37) 35 g/dL (31-37) Red Cell Distribution Width 14.2 % (11.5-14.5) 13.9 % (11.5-14.5) Platelet Count 294 x10^3/uL (140-400) 263 x10^3/uL (140-400) Neutrophils (%) (Auto) 36 % (31-73) 28 % (31-73) Lymphocytes (%) (Auto) 53 % (24-48) 61 % (24-48) Monocytes (%) (Auto) 10 % (0-9) 8 % (0-9) Eosinophils (%) (Auto) 0 % (0-3) 1 % (0-3) Basophils (%) (Auto) 1 % (0-3) 1 % (0-3) Neutrophils # (Auto) 1.5 x10^3uL (1.8-7.7) 1.2 x10^3uL (1.8-7.7) Lymphocytes # (Auto) 2.1 x10^3/uL (1.0-4.8) 2.6 x10^3/uL (1.0-4.8) Monocytes # (Auto) 0.4 x10^3/uL (0.0-1.1) 0.4 x10^3/uL (0.0-1.1) Eosinophils # (Auto) 0.0 x10^3/uL (0.0-0.7) 0.0 x10^3/uL (0.0-0.7) Basophils # (Auto) 0.1 x10^3/uL (0.0-0.2) 0.1 x10^3/uL (0.0-0.2) Sodium Level 140 mmol/L (136-145) 137 mmol/L (136-145) Potassium Level 3.9 mmol/L (3.5-5.1) 3.5 mmol/L (3.5-5.1) Chloride Level 97 mmol/L (98-107) 98 mmol/L (98-107) Carbon Dioxide Level 34 mmol/L (21-32) 31 mmol/L (21-32) Anion Gap 9 (6-14) 8 (6-14) Blood Urea Nitrogen 23 mg/dL (8-26) 18 mg/dL (8-26) Creatinine 1.5 mg/dL (0.7-1.3) 1.1 mg/dL (0.7-1.3) Estimated GFR (Cockcroft-Gault) 59.0 84.4 BUN/Creatinine Ratio 15 (6-20) 16 (6-20) Glucose Level 90 mg/dL (70-99) 99 mg/dL (70-99) Calcium Level 10.2 mg/dL (8.5-10.1) 9.2 mg/dL (8.5-10.1) Magnesium Level 2.4 mg/dL (1.8-2.4) Total Bilirubin 1.4 mg/dL (0.2-1.0) 1.2 mg/dL (0.2-1.0) Aspartate Amino Transf (AST/SGOT) 22 U/L (15-37) 18 U/L (15-37) Alanine Aminotransferase (ALT/SGPT) 26 U/L (16-63) 22 U/L (16-63) Alkaline Phosphatase 57 U/L (46-116) 18 U/L (46-116) RI-Eyc-D-Type Natriuretic Peptide 54 pg/mL (0-124) Total Protein 8.3 g/dL (6.4-8.2) 7.6 g/dL (6.4-8.2) Albumin 4.2 g/dL (3.4-5.0) 3.5 g/dL (3.4-5.0) Albumin/Globulin Ratio 1.0 (1.0-1.7) 0.9 (1.0-1.7) Lipase 100 U/L (73-393) Bedside Troponin I 0.01 ng/ml (<0.08) Urine Collection Type Unknown Urine Color [place] Urine Clarity Clear Urine pH 7.0 Urine Specific [place] 1.025 Urine Protein 30 mg/dL (NEG-TRACE) Urine Glucose (UA) Negative mg/dL (NEG) Urine Ketones (Stick) Trace mg/dL (NEG) Urine Blood Negative (NEG) Urine Nitrite Negative (NEG) Urine Bilirubin Small (NEG) Urine Urobilinogen Dipstick 4.0 mg/dL (0.2 mg/dL) Urine Leukocyte Esterase Small (NEG) Urine RBC Rare /HPF (0-2) Urine WBC 5-10 /HPF (0-4) Urine Squamous Epithelial Cells Few /LPF Urine Bacteria 0 /HPF (0-FEW) Urine Mucus Slight /LPF Erythrocyte Sedimentation Rate 5 (0-15) Ionized Calcium 1.06 mmol/L (1.13-1.32) Troponin I Quantitative 0.027 ng/mL (0.000-0.055) C-Reactive Protein, Quantitative 3.0 mg/L (0-3.3) Triglycerides Level 83 mg/dL (0-150) Cholesterol Level 156 mg/dL (0-200) LDL Cholesterol, Calculated 108 mg/dL (0-100) VLDL Cholesterol, Calculated 17 mg/dL (0-40) Non-HDL Cholesterol Calculated 125 mg/dL (0-129) HDL Cholesterol 31 mg/dL (40-60) Cholesterol/HDL Ratio 5.0 Allergies: Coded Allergies: No Known Drug Allergies (Unverified , 02/07/16) Medications: Current Medications Medications (Trade) Dose Ordered Sig/Wayne Route PRN Reason Start Time Stop Time Status Last Admin Dose Admin Ondansetron HCl (Zofran) 4 mg 1X ONCE IV 02/28/19 12:30 02/28/19 12:31 DC 02/28/19 12:42 Aspirin (Lorelei Aspirin) 325 mg 1X ONCE PO 02/28/19 17:30 02/28/19 17:31 DC 02/28/19 18:06 Aspirin (Lorelei Aspirin) 325 mg DAILYWBKFT PO 03/01/19 08:00 03/01/19 08:12 Albuterol/ Ipratropium (Duoneb) 3 ml RTQID NEB 02/28/19 20:00 03/01/19 07:42 Enoxaparin Sodium (Lovenox 40mg Syringe) 40 mg Q24H SQ 02/28/19 21:00 02/28/19 21:06 Oxycodone/ Acetaminophen (Percocet 5/325) 1 tab PRN Q4HRS PRN PO PAIN 02/28/19 17:15 02/28/19 22:52 Imaging: Imaging: CXR Impression: Negative portable chest. Abd Arterial Artery Study US pending PE: GEN: NAD HEENT: Atraumatic, PERRL LUNGS: CTAB HEART: RRR ABD: NABS, S/ND/NT, thin EXTREMITY: No edema SKIN: No rashes, no jaundice NEURO/PSYCH: A & O 3 A/P: A/P: Chest pain, vomiting Unintentional weight loss CRC screen, FH of CRC - has not had colonoscopy H/o CAD CAROL - resolved -- Currently asymptomatic. Chest CT A/P re: weight loss. Consider outpt EGD if vomiting recurs, also needs screening colonoscopy. SRINIVASA SHARMA March 01, 2019 09:18
--- NOTE | 2019-03-01 09:49 | PDOC2 ---
CARDIAC CONSULT DATE OF CONSULT Date of Consult DATE: 03/01/19 TIME: 09:42 REASON FOR CONSULT Reason for Consult: Chest pain SOURCE Source: Chart review, Patient HISTORY OF PRESENT ILLNESS HISTORY OF PRESENT ILLNESS This is a 53 yo male admitted for complains of chest pain. Reports that he has been having midchest tightness for about a week. Eventually he started having some wheeze and SOA in the last few days. Positive for nausea, vomiting and diaphoresis. He thought it was all from stress. He has been stressed out lately that he had to take a leave at work. He is stressed for he has 21 children from 14 mothers. He has CAD and actually had a stent about 2 yrs ago but has not been taking any medications for unknown duration. He continues to smoke tobacco. PAST MEDICAL HISTORY Cardiovascular: CAD, HTN, Hyperlipidemia Pulmonary: COPD CENTRAL NERVOUS SYSTEM: Other (No pertinent history) GI: No pertinent hx Heme/Onc: No pertinent hx Hepatobiliary: No pertinent hx Psych: Anxiety Musculoskeletal: Osteoarthritis Rheumatologic: No pertinent hx Infectious disease: No pertinent hx ENT: No pertinent hx Renal/: No pertinent hx Endocrine: No pertinent hx Dermatology: No pertinent hx PAST SURGICAL HISTORY Past Surgical History: Other (PCI/stent ) FAMILY HISTORY Family History: Heart Disease SOCIAL HISTORY Smoke: 1 pack per day ALCOHOL: none Drugs: Marijuana, Other (some cocaine in the past) Lives: with Family CURRENT MEDICATIONS CURRENT MEDICATIONS Current Medications Medications (Trade) Dose Ordered Sig/Wayne Route PRN Reason Start Time Stop Time Status Last Admin Dose Admin Ondansetron HCl (Zofran) 4 mg 1X ONCE IV 02/28/19 12:30 02/28/19 12:31 DC 02/28/19 12:42 Aspirin (Lorelei Aspirin) 325 mg 1X ONCE PO 02/28/19 17:30 02/28/19 17:31 DC 02/28/19 18:06 Aspirin (Lorelei Aspirin) 325 mg DAILYWBKFT PO 03/01/19 08:00 03/01/19 08:12 Albuterol/ Ipratropium (Duoneb) 3 ml RTQID NEB 02/28/19 20:00 03/01/19 07:42 Enoxaparin Sodium (Lovenox 40mg Syringe) 40 mg Q24H SQ 02/28/19 21:00 02/28/19 21:06 Oxycodone/ Acetaminophen (Percocet 5/325) 1 tab PRN Q4HRS PRN PO PAIN 02/28/19 17:15 02/28/19 22:52 ALLERGIES ALLERGIES: Coded Allergies: No Known Drug Allergies (Unverified , 02/07/16) ROS Review of System 14 point ROS evaluated with pertinent positives noted per HPI. PHYSICAL EXAM General: Alert, Oriented X3, Cooperative, No acute distress HEENT: Atraumatic, Mucous membr. moist/pink Lungs: Clear to auscultation, Normal air movement Heart: Regular rate (SR), Normal S1, Normal S2, Other (2/6 systolic murmur to LLS border) Abdomen: Soft, No tenderness Extremities: No cyanosis, No edema Skin: No breakdown, No significant lesion Neuro: Normal speech, Sensation intact Psych/Mental Status: Mental status NL, Mood NL MUSCULOSKELETAL: Osteoarthritic changes both hands VITALS VITALS Vital Signs Date Time Temp Pulse Resp B/P (MAP) Pulse Ox O2 Delivery O2 Flow Rate FiO2 03/01/19 07:47 Room Air 03/01/19 07:42 100 03/01/19 07:00 98.1 69 16 132/83 (99) 98.1 LABS Lab: Laboratory Tests Test 02/28/19 10:34 02/28/19 11:34 02/28/19 19:20 03/01/19 05:45 White Blood Count 4.1 x10^3/uL (4.0-11.0) 4.2 x10^3/uL (4.0-11.0) Red Blood Count 5.73 x10^6/uL (4.30-5.70) 5.22 x10^6/uL (4.30-5.70) Hemoglobin 18.2 g/dL (13.0-17.5) 17.1 g/dL (13.0-17.5) Hematocrit 54.3 % (39.0-53.0) 49.5 % (39.0-53.0) Mean Corpuscular Volume 95 fL (79-100) 95 fL (79-100) Mean Corpuscular Hemoglobin 32 pg (25-35) 33 pg (25-35) Mean Corpuscular Hemoglobin Concent 34 g/dL (31-37) 35 g/dL (31-37) Red Cell Distribution Width 14.2 % (11.5-14.5) 13.9 % (11.5-14.5) Platelet Count 294 x10^3/uL (140-400) 263 x10^3/uL (140-400) Neutrophils (%) (Auto) 36 % (31-73) 28 % (31-73) Lymphocytes (%) (Auto) 53 % (24-48) 61 % (24-48) Monocytes (%) (Auto) 10 % (0-9) 8 % (0-9) Eosinophils (%) (Auto) 0 % (0-3) 1 % (0-3) Basophils (%) (Auto) 1 % (0-3) 1 % (0-3) Neutrophils # (Auto) 1.5 x10^3uL (1.8-7.7) 1.2 x10^3uL (1.8-7.7) Lymphocytes # (Auto) 2.1 x10^3/uL (1.0-4.8) 2.6 x10^3/uL (1.0-4.8) Monocytes # (Auto) 0.4 x10^3/uL (0.0-1.1) 0.4 x10^3/uL (0.0-1.1) Eosinophils # (Auto) 0.0 x10^3/uL (0.0-0.7) 0.0 x10^3/uL (0.0-0.7) Basophils # (Auto) 0.1 x10^3/uL (0.0-0.2) 0.1 x10^3/uL (0.0-0.2) Sodium Level 140 mmol/L (136-145) 137 mmol/L (136-145) Potassium Level 3.9 mmol/L (3.5-5.1) 3.5 mmol/L (3.5-5.1) Chloride Level 97 mmol/L (98-107) 98 mmol/L (98-107) Carbon Dioxide Level 34 mmol/L (21-32) 31 mmol/L (21-32) Anion Gap 9 (6-14) 8 (6-14) Blood Urea Nitrogen 23 mg/dL (8-26) 18 mg/dL (8-26) Creatinine 1.5 mg/dL (0.7-1.3) 1.1 mg/dL (0.7-1.3) Estimated GFR (Cockcroft-Gault) 59.0 84.4 BUN/Creatinine Ratio 15 (6-20) 16 (6-20) Glucose Level 90 mg/dL (70-99) 99 mg/dL (70-99) Calcium Level 10.2 mg/dL (8.5-10.1) 9.2 mg/dL (8.5-10.1) Magnesium Level 2.4 mg/dL (1.8-2.4) Total Bilirubin 1.4 mg/dL (0.2-1.0) 1.2 mg/dL (0.2-1.0) Aspartate Amino Transf (AST/SGOT) 22 U/L (15-37) 18 U/L (15-37) Alanine Aminotransferase (ALT/SGPT) 26 U/L (16-63) 22 U/L (16-63) Alkaline Phosphatase 57 U/L (46-116) 18 U/L (46-116) KO-Ktr-P-Type Natriuretic Peptide 54 pg/mL (0-124) Total Protein 8.3 g/dL (6.4-8.2) 7.6 g/dL (6.4-8.2) Albumin 4.2 g/dL (3.4-5.0) 3.5 g/dL (3.4-5.0) Albumin/Globulin Ratio 1.0 (1.0-1.7) 0.9 (1.0-1.7) Lipase 100 U/L (73-393) Bedside Troponin I 0.01 ng/ml (<0.08) Urine Collection Type Unknown Urine Color [place] Urine Clarity Clear Urine pH 7.0 Urine Specific [place] 1.025 Urine Protein 30 mg/dL (NEG-TRACE) Urine Glucose (UA) Negative mg/dL (NEG) Urine Ketones (Stick) Trace mg/dL (NEG) Urine Blood Negative (NEG) Urine Nitrite Negative (NEG) Urine Bilirubin Small (NEG) Urine Urobilinogen Dipstick 4.0 mg/dL (0.2 mg/dL) Urine Leukocyte Esterase Small (NEG) Urine RBC Rare /HPF (0-2) Urine WBC 5-10 /HPF (0-4) Urine Squamous Epithelial Cells Few /LPF Urine Bacteria 0 /HPF (0-FEW) Urine Mucus Slight /LPF Erythrocyte Sedimentation Rate 5 (0-15) Ionized Calcium 1.06 mmol/L (1.13-1.32) Troponin I Quantitative 0.027 ng/mL (0.000-0.055) C-Reactive Protein, Quantitative 3.0 mg/L (0-3.3) Triglycerides Level 83 mg/dL (0-150) Cholesterol Level 156 mg/dL (0-200) LDL Cholesterol, Calculated 108 mg/dL (0-100) VLDL Cholesterol, Calculated 17 mg/dL (0-40) Non-HDL Cholesterol Calculated 125 mg/dL (0-129) HDL Cholesterol 31 mg/dL (40-60) Cholesterol/HDL Ratio 5.0 ECHOCARDIOGRAM ECHOCARDIOGRAM <Conclusion> The left ventricle is normal size. The left ventricular systolic function is normal and the ejection fraction is within normal range. LV ejection fraction is 55-60%. There is no aortic valvular vegetation. There is no significant aortic valvular stenosis. Doppler and Color Flow revealed no mitral valve regurgitation noted. Doppler and Color Flow revealed trace tricuspid regurgitation. DATE: 03/28/17 1718 HEART CATH HEART CATH Findings. Hemodynamics. LV 124/22, aortic root 120/72. Coronaries. Left main. The left main was a long vessel with no lesions. Left anterior descending. The LAD was a moderately large vessel with a subtotal mid lesion. Left circumflex. The left circumflex was a dominant vessel. In the distal vessel there appeared to be a chronic occlusion. This was a relatively small vessel. As noted above peak troponin during the patient's hospitalization for chest pain was 0.168. Right coronary artery. The right coronary was a nondominant vessel. It had no lesions. Left ventriculogram. The left ventricle showed normal systolic function with an ejection fraction estimated at 55-60%. <Conclusion> Subtotal mid LAD lesion. Successful stenting of the LAD lesion with a 0% residual. Distal moderately small chronically occluded left circumflex. Good left ventricular systolic function. DATE: 03/29/17 1700 ASSESSMENT/PLAN ASSESSMENT/PLAN 1. CP: UA features with abnormal EKG 2. CAD: past stent as noted above 3. HTN: controlled 4. HLP 5. COPD with heavy tobaccoism 6. Anxiety/stress 7. Abd pain/pulsatile mass 8. Noncompliance Recommendations 1. Repeat trop and EKG, Abd sono 2. LHC today, risks and benefits, agreeable to proceed. 3. ASA, statin 4. Smoking cessation. Discussed compliance. SARAH LARKIN CANOE MAKER March 01, 2019 09:49
--- NOTE | 2019-03-01 10:26 | EKG ---
[facility] [address] [place] [id number] Test Date: 2019-03-01 Test Time: 10:17:21 Pat Name: CALISTA ROWAN Department: Room: 209 1 Gender: M [place] [employer]: : 1965 Requested By: SARAH LARKIN Order Number: [id number] Reading MD: Cristobal Gar Measurements Intervals [place] Rate: 71 P: 41 AK: 178 QRS: 26 QRSD: 106 T: 24 QT: 392 QTc: 426 Interpretive Statements SINUS RHYTHM LOW LIMB LEAD VOLTAGE Electronically Signed On 03-24-2019 12:04:04 CDT by Cristobal Gar
--- NOTE | 2019-03-01 10:41 | PDOC ---
PROGRESS NOTES History of Present Illness History of Present Illness VTE Prophylaxis Ordered VTE Prophylaxis Devices: Yes VTE Pharmacological Prophylaxi: Yes Assessment/Plan Assessment/Plan 60 lbs weight loss with chest pain abd pain and nausea hyperkalemia unstable angina tobacco abuse concerning for malignancy, check Ca 19-9, may need CT C/a/p will consult for others to eval cardiac cath today marked depression, major depression has avoided doctors and has not been compliant with meds after his heart attack last year tobacco use disorder Vitals Vitals Vital Signs Date Time Temp Pulse Resp B/P (MAP) Pulse Ox O2 Delivery O2 Flow Rate FiO2 03/01/19 07:47 Room Air 03/01/19 07:42 100 03/01/19 07:00 98.1 69 16 132/83 (99) 98.1 Physical Exam General: Alert, Oriented X3, Cooperative, mild distress Lungs: Wheezing Extremities: No edema Skin: No rashes, No significant lesion Labs LABS Single view chest dated 02/28/2019: No comparison available. Clinical Indication: Chest pain. Findings: Single upright portable exam of the chest was performed. Heart size and mediastinal contours are within normal limits given technique. The lungs are clear without evidence of focal consolidation. Vascular interstitium is within normal limits. Impression:: Negative portable chest. Electronically signed by: Brian Maxwell MD (02/28/2019 11:37 AM) [facility] DICTATED and SIGNED BY: BRIAN MAXWELL MD DATE: 02/28/19 1137 Laboratory Tests Test 02/28/19 11:34 02/28/19 19:20 03/01/19 05:45 Bedside Troponin I 0.01 ng/ml (<0.08) Urine Collection Type Unknown Urine Color [place] Urine Clarity Clear Urine pH 7.0 Urine Specific [place] 1.025 Urine Protein 30 mg/dL (NEG-TRACE) Urine Glucose (UA) Negative mg/dL (NEG) Urine Ketones (Stick) Trace mg/dL (NEG) Urine Blood Negative (NEG) Urine Nitrite Negative (NEG) Urine Bilirubin Small (NEG) Urine Urobilinogen Dipstick 4.0 mg/dL (0.2 mg/dL) Urine Leukocyte Esterase Small (NEG) Urine RBC Rare /HPF (0-2) Urine WBC 5-10 /HPF (0-4) Urine Squamous Epithelial Cells Few /LPF Urine Bacteria 0 /HPF (0-FEW) Urine Mucus Slight /LPF White Blood Count 4.2 x10^3/uL (4.0-11.0) Red Blood Count 5.22 x10^6/uL (4.30-5.70) Hemoglobin 17.1 g/dL (13.0-17.5) Hematocrit 49.5 % (39.0-53.0) Mean Corpuscular Volume 95 fL (79-100) Mean Corpuscular Hemoglobin 33 pg (25-35) Mean Corpuscular Hemoglobin Concent 35 g/dL (31-37) Red Cell Distribution Width 13.9 % (11.5-14.5) Platelet Count 263 x10^3/uL (140-400) Neutrophils (%) (Auto) 28 % (31-73) Lymphocytes (%) (Auto) 61 % (24-48) Monocytes (%) (Auto) 8 % (0-9) Eosinophils (%) (Auto) 1 % (0-3) Basophils (%) (Auto) 1 % (0-3) Neutrophils # (Auto) 1.2 x10^3uL (1.8-7.7) Lymphocytes # (Auto) 2.6 x10^3/uL (1.0-4.8) Monocytes # (Auto) 0.4 x10^3/uL (0.0-1.1) Eosinophils # (Auto) 0.0 x10^3/uL (0.0-0.7) Basophils # (Auto) 0.1 x10^3/uL (0.0-0.2) Erythrocyte Sedimentation Rate 5 (0-15) Sodium Level 137 mmol/L (136-145) Potassium Level 3.5 mmol/L (3.5-5.1) Chloride Level 98 mmol/L (98-107) Carbon Dioxide Level 31 mmol/L (21-32) Anion Gap 8 (6-14) Blood Urea Nitrogen 18 mg/dL (8-26) Creatinine 1.1 mg/dL (0.7-1.3) Estimated GFR (Cockcroft-Gault) 84.4 BUN/Creatinine Ratio 16 (6-20) Glucose Level 99 mg/dL (70-99) Calcium Level 9.2 mg/dL (8.5-10.1) Ionized Calcium 1.06 mmol/L (1.13-1.32) Total Bilirubin 1.2 mg/dL (0.2-1.0) Aspartate Amino Transf (AST/SGOT) 18 U/L (15-37) Alanine Aminotransferase (ALT/SGPT) 22 U/L (16-63) Alkaline Phosphatase 18 U/L (46-116) Troponin I Quantitative 0.027 ng/mL (0.000-0.055) C-Reactive Protein, Quantitative 3.0 mg/L (0-3.3) Total Protein 7.6 g/dL (6.4-8.2) Albumin 3.5 g/dL (3.4-5.0) Albumin/Globulin Ratio 0.9 (1.0-1.7) Triglycerides Level 83 mg/dL (0-150) Cholesterol Level 156 mg/dL (0-200) LDL Cholesterol, Calculated 108 mg/dL (0-100) VLDL Cholesterol, Calculated 17 mg/dL (0-40) Non-HDL Cholesterol Calculated 125 mg/dL (0-129) HDL Cholesterol 31 mg/dL (40-60) Cholesterol/HDL Ratio 5.0 Assessment and Plan Assessmemt and Plan Problems Medical Problems: (1) Chest pain Status: Acute Comment Review of Relevant I have reviewed the following items sina (where applicable) has been applied. Labs Laboratory Tests Test 02/28/19 10:34 02/28/19 11:34 02/28/19 19:20 03/01/19 05:45 White Blood Count 4.1 x10^3/uL (4.0-11.0) 4.2 x10^3/uL (4.0-11.0) Red Blood Count 5.73 x10^6/uL (4.30-5.70) 5.22 x10^6/uL (4.30-5.70) Hemoglobin 18.2 g/dL (13.0-17.5) 17.1 g/dL (13.0-17.5) Hematocrit 54.3 % (39.0-53.0) 49.5 % (39.0-53.0) Mean Corpuscular Volume 95 fL (79-100) 95 fL (79-100) Mean Corpuscular Hemoglobin 32 pg (25-35) 33 pg (25-35) Mean Corpuscular Hemoglobin Concent 34 g/dL (31-37) 35 g/dL (31-37) Red Cell Distribution Width 14.2 % (11.5-14.5) 13.9 % (11.5-14.5) Platelet Count 294 x10^3/uL (140-400) 263 x10^3/uL (140-400) Neutrophils (%) (Auto) 36 % (31-73) 28 % (31-73) Lymphocytes (%) (Auto) 53 % (24-48) 61 % (24-48) Monocytes (%) (Auto) 10 % (0-9) 8 % (0-9) Eosinophils (%) (Auto) 0 % (0-3) 1 % (0-3) Basophils (%) (Auto) 1 % (0-3) 1 % (0-3) Neutrophils # (Auto) 1.5 x10^3uL (1.8-7.7) 1.2 x10^3uL (1.8-7.7) Lymphocytes # (Auto) 2.1 x10^3/uL (1.0-4.8) 2.6 x10^3/uL (1.0-4.8) Monocytes # (Auto) 0.4 x10^3/uL (0.0-1.1) 0.4 x10^3/uL (0.0-1.1) Eosinophils # (Auto) 0.0 x10^3/uL (0.0-0.7) 0.0 x10^3/uL (0.0-0.7) Basophils # (Auto) 0.1 x10^3/uL (0.0-0.2) 0.1 x10^3/uL (0.0-0.2) Sodium Level 140 mmol/L (136-145) 137 mmol/L (136-145) Potassium Level 3.9 mmol/L (3.5-5.1) 3.5 mmol/L (3.5-5.1) Chloride Level 97 mmol/L (98-107) 98 mmol/L (98-107) Carbon Dioxide Level 34 mmol/L (21-32) 31 mmol/L (21-32) Anion Gap 9 (6-14) 8 (6-14) Blood Urea Nitrogen 23 mg/dL (8-26) 18 mg/dL (8-26) Creatinine 1.5 mg/dL (0.7-1.3) 1.1 mg/dL (0.7-1.3) Estimated GFR (Cockcroft-Gault) 59.0 84.4 BUN/Creatinine Ratio 15 (6-20) 16 (6-20) Glucose Level 90 mg/dL (70-99) 99 mg/dL (70-99) Calcium Level 10.2 mg/dL (8.5-10.1) 9.2 mg/dL (8.5-10.1) Magnesium Level 2.4 mg/dL (1.8-2.4) Total Bilirubin 1.4 mg/dL (0.2-1.0) 1.2 mg/dL (0.2-1.0) Aspartate Amino Transf (AST/SGOT) 22 U/L (15-37) 18 U/L (15-37) Alanine Aminotransferase (ALT/SGPT) 26 U/L (16-63) 22 U/L (16-63) Alkaline Phosphatase 57 U/L (46-116) 18 U/L (46-116) JI-Fow-F-Type Natriuretic Peptide 54 pg/mL (0-124) Total Protein 8.3 g/dL (6.4-8.2) 7.6 g/dL (6.4-8.2) Albumin 4.2 g/dL (3.4-5.0) 3.5 g/dL (3.4-5.0) Albumin/Globulin Ratio 1.0 (1.0-1.7) 0.9 (1.0-1.7) Lipase 100 U/L (73-393) Bedside Troponin I 0.01 ng/ml (<0.08) Urine Collection Type Unknown Urine Color [place] Urine Clarity Clear Urine pH 7.0 Urine Specific [place] 1.025 Urine Protein 30 mg/dL (NEG-TRACE) Urine Glucose (UA) Negative mg/dL (NEG) Urine Ketones (Stick) Trace mg/dL (NEG) Urine Blood Negative (NEG) Urine Nitrite Negative (NEG) Urine Bilirubin Small (NEG) Urine Urobilinogen Dipstick 4.0 mg/dL (0.2 mg/dL) Urine Leukocyte Esterase Small (NEG) Urine RBC Rare /HPF (0-2) Urine WBC 5-10 /HPF (0-4) Urine Squamous Epithelial Cells Few /LPF Urine Bacteria 0 /HPF (0-FEW) Urine Mucus Slight /LPF Erythrocyte Sedimentation Rate 5 (0-15) Ionized Calcium 1.06 mmol/L (1.13-1.32) Troponin I Quantitative 0.027 ng/mL (0.000-0.055) C-Reactive Protein, Quantitative 3.0 mg/L (0-3.3) Triglycerides Level 83 mg/dL (0-150) Cholesterol Level 156 mg/dL (0-200) LDL Cholesterol, Calculated 108 mg/dL (0-100) VLDL Cholesterol, Calculated 17 mg/dL (0-40) Non-HDL Cholesterol Calculated 125 mg/dL (0-129) HDL Cholesterol 31 mg/dL (40-60) Cholesterol/HDL Ratio 5.0 Laboratory Tests Test 02/28/19 11:34 02/28/19 19:20 03/01/19 05:45 Bedside Troponin I 0.01 ng/ml (<0.08) Urine Collection Type Unknown Urine Color [place] Urine Clarity Clear Urine pH 7.0 Urine Specific [place] 1.025 Urine Protein 30 mg/dL (NEG-TRACE) Urine Glucose (UA) Negative mg/dL (NEG) Urine Ketones (Stick) Trace mg/dL (NEG) Urine Blood Negative (NEG) Urine Nitrite Negative (NEG) Urine Bilirubin Small (NEG) Urine Urobilinogen Dipstick 4.0 mg/dL (0.2 mg/dL) Urine Leukocyte Esterase Small (NEG) Urine RBC Rare /HPF (0-2) Urine WBC 5-10 /HPF (0-4) Urine Squamous Epithelial Cells Few /LPF Urine Bacteria 0 /HPF (0-FEW) Urine Mucus Slight /LPF White Blood Count 4.2 x10^3/uL (4.0-11.0) Red Blood Count 5.22 x10^6/uL (4.30-5.70) Hemoglobin 17.1 g/dL (13.0-17.5) Hematocrit 49.5 % (39.0-53.0) Mean Corpuscular Volume 95 fL (79-100) Mean Corpuscular Hemoglobin 33 pg (25-35) Mean Corpuscular Hemoglobin Concent 35 g/dL (31-37) Red Cell Distribution Width 13.9 % (11.5-14.5) Platelet Count 263 x10^3/uL (140-400) Neutrophils (%) (Auto) 28 % (31-73) Lymphocytes (%) (Auto) 61 % (24-48) Monocytes (%) (Auto) 8 % (0-9) Eosinophils (%) (Auto) 1 % (0-3) Basophils (%) (Auto) 1 % (0-3) Neutrophils # (Auto) 1.2 x10^3uL (1.8-7.7) Lymphocytes # (Auto) 2.6 x10^3/uL (1.0-4.8) Monocytes # (Auto) 0.4 x10^3/uL (0.0-1.1) Eosinophils # (Auto) 0.0 x10^3/uL (0.0-0.7) Basophils # (Auto) 0.1 x10^3/uL (0.0-0.2) Erythrocyte Sedimentation Rate 5 (0-15) Sodium Level 137 mmol/L (136-145) Potassium Level 3.5 mmol/L (3.5-5.1) Chloride Level 98 mmol/L (98-107) Carbon Dioxide Level 31 mmol/L (21-32) Anion Gap 8 (6-14) Blood Urea Nitrogen 18 mg/dL (8-26) Creatinine 1.1 mg/dL (0.7-1.3) Estimated GFR (Cockcroft-Gault) 84.4 BUN/Creatinine Ratio 16 (6-20) Glucose Level 99 mg/dL (70-99) Calcium Level 9.2 mg/dL (8.5-10.1) Ionized Calcium 1.06 mmol/L (1.13-1.32) Total Bilirubin 1.2 mg/dL (0.2-1.0) Aspartate Amino Transf (AST/SGOT) 18 U/L (15-37) Alanine Aminotransferase (ALT/SGPT) 22 U/L (16-63) Alkaline Phosphatase 18 U/L (46-116) Troponin I Quantitative 0.027 ng/mL (0.000-0.055) C-Reactive Protein, Quantitative 3.0 mg/L (0-3.3) Total Protein 7.6 g/dL (6.4-8.2) Albumin 3.5 g/dL (3.4-5.0) Albumin/Globulin Ratio 0.9 (1.0-1.7) Triglycerides Level 83 mg/dL (0-150) Cholesterol Level 156 mg/dL (0-200) LDL Cholesterol, Calculated 108 mg/dL (0-100) VLDL Cholesterol, Calculated 17 mg/dL (0-40) Non-HDL Cholesterol Calculated 125 mg/dL (0-129) HDL Cholesterol 31 mg/dL (40-60) Cholesterol/HDL Ratio 5.0 Medications Current Medications Ondansetron HCl (Zofran) 4 mg 1X ONCE IV Last administered on 02/28/19at 12:42; Start 02/28/19 at 12:30; Stop 02/28/19 at 12:31; Status DC Aspirin ([place] Aspirin) 325 mg 1X ONCE PO Last administered on 02/28/19at 18:06; Start 02/28/19 at 17:30; Stop 02/28/19 at 17:31; Status DC Aspirin ([place] Aspirin) 325 mg DAILYWBKFT PO Last administered on 03/01/19at 08:12; Start 03/01/19 at 08:00 Albuterol/ Ipratropium (Duoneb) 3 ml RTQID NEB Last administered on 03/01/19at 07:42; Start 02/28/19 at 20:00 Enoxaparin Sodium (Lovenox Per Pharmacy Prophylaxis Dosing) 1 each PRN DAILY PRN MC SEE COMMENTS; Start 02/28/19 at 17:00; Stop 02/28/19 at 17:00; Status DC Enoxaparin Sodium (Lovenox 40mg Syringe) 40 mg Q24H SQ Last administered on 02/28/19at 21:06; Start 02/28/19 at 21:00 Morphine Sulfate (Morphine Sulfate) 4 mg PRN Q2HR PRN IV PAIN; Start 02/28/19 at 17:15 Oxycodone/ Acetaminophen (Percocet 5/325) 1 tab PRN Q4HRS PRN PO PAIN Last administered on 02/28/19at 22:52; Start 02/28/19 at 17:15 Albuterol/ Ipratropium (Duoneb) 3 ml STK-MED ONCE .ROUTE ; Start 02/28/19 at 18:00; Stop 02/28/19 at 18:01; Status DC Atorvastatin Calcium (Lipitor) 40 mg QHS PO ; Start 5/15/19 at 21:00 Active Scripts Active Effient (Prasugrel Hcl) 10 Mg Tablet 1 Tab PO DAILY Metoprolol Tartrate 25 Mg Tablet 12.5 Mg PO BID 30 Days Lisinopril 5 Mg Tablet 5 Mg PO DAILY 30 Days Atorvastatin Calcium 20 Mg Tablet 20 Mg PO QHS 30 Days Aspirin Ec (Aspirin) 81 Mg Tablet.dr 81 Mg PO DAILYWBKFT 30 Days Cyclobenzaprine Hcl 10 Mg Tablet 10 Mg PO TID PRN Erythromycin (Erythromycin Base) 3.5 Gm Oint...g. 3.5 Gm OP TID 7 Days Vitals/I & O Vital Sign - Last 24 Hours 02/28/19 02/28/19 02/28/19 02/28/19 11:02 11:30 12:00 12:30 Temp 97.5 97.5 Pulse 94 76 64 66 Resp 24 21 16 20 B/P (MAP) 114/75 (88) Pulse Ox 99 97 98 95 O2 Delivery Room Air 02/28/19 02/28/19 02/28/19 02/28/19 13:00 13:30 14:46 15:00 Pulse 64 66 83 70 Resp 22 21 28 21 Pulse Ox 97 98 99 98 02/28/19 02/28/19 02/28/19 02/28/19 15:30 17:00 17:00 18:06 Temp 98.2 98.2 Pulse 72 66 Resp 24 12 B/P (MAP) 142/73 (96) Pulse Ox 97 98 97 O2 Delivery Room Air Room Air Room Air 02/28/19 02/28/19 02/28/19 02/28/19 18:19 19:15 19:50 22:52 Temp 97.7 97.7 Pulse 75 Resp 18 B/P (MAP) 131/78 (95) Pulse Ox 97 99 O2 Delivery Room Air Room Air Room Air Room Air 02/28/19 02/28/19 03/01/19 03/01/19 23:05 23:52 03:00 07:00 Temp 98.9 97.9 98.1 98.9 97.9 98.1 Pulse 61 60 69 Resp 18 18 16 B/P (MAP) 140/72 (94) 126/77 (93) 132/83 (99) Pulse Ox 98 99 96 O2 Delivery Room Air Room Air Room Air Room Air 03/01/19 03/01/19 07:42 07:47 Pulse Ox 100 O2 Delivery Room Air Room Air Intake and Output 02/28/19 02/28/19 03/01/19 15:00 23:00 07:00 Intake Total 300 ml Output Total 100 ml 100 ml Balance -100 ml 200 ml KEN SHRESTHA MD March 01, 2019 10:41
[2019-03-01] MEDS: cefTRIAXone IV Push 1 GM VIAL. IVP SCH (11:37)
--- NOTE | 2019-03-01 11:40 | CONS ---
DATE OF CONSULTATION: ATTENDING PHYSICIAN: Viridiana Cruz M.D. REASON FOR CONSULTATION: Chest pain. HISTORY OF PRESENT ILLNESS: The patient is a 53-year-old male who has history of CAD, history of prior stent placement. He came to the hospital with some nonspecific chest pain. He has no cough, no fever, no chills, no shortness of breath. The patient has been a smoker for 20 years and also has smoked cocaine and marijuana. His chest x-ray was clear on arrival in the Emergency Room. The patient had an echocardiogram done, which showed an ejection fraction of 55%-60% and grade 1 diastolic dysfunction. Cardiology has been consulted and they are planning to do cardiac catheterization on him. PAST MEDICAL HISTORY: Hypertension and suspected COPD. PAST SURGICAL HISTORY: Prior stent placement. FAMILY HISTORY: Heart disease. SOCIAL HISTORY: Smoker for 20 years, smoked cocaine and marijuana. REVIEW OF SYSTEMS: Twelve-point system obtained. Pertinent positives are discussed in my history of present illness, otherwise noncontributory. All systems that were negative were reviewed as well. ALLERGIES: None. MEDICATIONS: Reviewed as listed in the MRAD. PHYSICAL EXAMINATION: VITAL SIGNS: Stable. Pulse ox 100% on room air. NECK: Supple. LUNGS: Clear. CARDIOVASCULAR: Regular rate. ABDOMEN: Soft, nontender. EXTREMITIES: With no pitting edema. LABORATORY DATA: Reviewed. White cell count 4.2, hemoglobin 17.1. Chemistries were reviewed as well. IMPRESSION: 1. Chest pain in a patient who has coronary artery disease and prior stent placement. Needs to rule out anginal pain. He is scheduled for cardiac catheterization today. 2. Twenty years of tobacco use, suspect underlying chronic obstructive pulmonary disease. He smoked cocaine and marijuana as well. 3. Clear chest x-ray. RECOMMENDATIONS: 1. Followup Cardiology recommendations and results of cardiac catheterization. 2. Smoking cessation counseling provided. He no longer plans to smoke cigarettes and marijuana and cocaine. 3. From a pulmonary standpoint, no additional workup is needed and could be discharged home if his cardiac catheterization is negative. Discussed with Cardiology and RN. MICHAEL CRONIN MD DR: PINKY/migue JOB#: [id number] / [id number]
--- NOTE | 2019-03-01 11:57 | CARD ---
MR#: [id number] Date of Study: 03/01/2019 Ordering Physician: SARAH LARKIN, Referring Physician: HEIKE KIMBLE Tech: Johana Cruz RDCS APPROVED REPORT EXAM: Two-dimensional and M-mode echocardiogram with Doppler and color Doppler. Other Information Quality : Technically LimitedHR: 70bpm Rhythm : NSRTechnically limited study due to smoking. INDICATION Chest Pain 2D DIMENSIONS RVDd2.9 (2.9-3.5cm)Left Atrium(2D)3.5 (1.6-4.0cm) IVSd1.2 (0.7-1.1cm)Aortic Root(2D)3.0 (2.0-3.7cm) LVDd4.3 (3.9-5.9cm)LVOT Diameter1.8 (1.8-2.4cm) PWd1.3 (0.7-1.1cm)IVSs1.5 (0.8-1.2cm) LVDs3.0 (2.5-4.0cm)FS (%) 30.7 % PWs1.7 (0.8-1.2cm)SV48.4 ml LVEF(%)58.5 (>50%) Aortic Valve AoV Peak Hi.141.0cm/sAoV VTI23.4cm AO Peak GR.7.9mmHgLVOT Peak Hi.143.7cm/s LVOT VTI 25.14cmAO Mean GR.4mmHg ZION (VMAX)2.48tl2CGB (VTI)2.75cm2 AI P 1/2 Cvsv309mp Mitral Valve MV E Adlztwuw55.8cm/sMV DECEL GBTK127xp MV A Szqfrfad48.9cm/sMV [id number] E/A Ratio0.8MVA (PHT)2.08cm2 TDI E/Lateral E'4.9E/Medial E'6.0 Pulmonary Valve PV Peak Uyzykzwu167.7cm/sPV Peak Grad.5mmHg LEFT VENTRICLE The left ventricle is normal size. There is mild concentric left ventricular hypertrophy. The left ve ntricular systolic function is normal and the ejection fraction is within normal range. The Ejection Fraction is 55-60%. There is normal LV segmental wall motion. Transmitral Doppler flow pattern is Gra de I-abnormal relaxation pattern. RIGHT VENTRICLE The right ventricle is normal size. There is normal right ventricular wall thickness. The right ventr icular systolic function is normal. ATRIA The left atrium size is normal. The right atrium size is normal. The interatrial septum is intact wit h no evidence for an atrial septal defect or patent foramen ovale as noted on 2-D or Doppler imaging. AORTIC VALVE The aortic valve is calcified but opens well. The aortic valve is trileaflet. Doppler and Color Flow revealed trace to mild aortic regurgitation. There is no significant aortic valvular stenosis. MITRAL VALVE The mitral valve is normal in structure and function. There is no evidence of mitral valve prolapse. There is no mitral valve stenosis. Doppler and Color-flow revealed trace mitral regurgitation. TRICUSPID VALVE The tricuspid valve is normal in structure and function. Doppler and Color Flow revealed no tricuspid valve regurgitation noted. There is no tricuspid valve prolapse or vegetation. There is no tricuspid valve stenosis. PULMONIC VALVE The pulmonic valve is not well visualized. GREAT VESSELS The aortic root is normal in size. The ascending aorta is normal in size. The IVC is normal in size a nd collapses >50% with inspiration. PERICARDIAL EFFUSION There is no evidence of significant pericardial effusion. Critical Notification Critical Value: No <Conclusion> The left ventricle is normal size. The left ventricular systolic function is normal and the ejection fraction is within normal range. The Ejection Fraction is 55-60%. There is mild concentric left ventricular hypertrophy. There is no significant aortic valvular stenosis. Doppler and Color Flow revealed trace to mild aortic regurgitation. Doppler and Color-flow revealed trace mitral regurgitation. Doppler and Color Flow revealed no tricuspid valve regurgitation noted. Signed by : Abhijit Abad MD Electronically Approved : 03/01/2019 11:57:36
--- NOTE | 2019-03-01 13:18 | NUR ---
SS following for discharge planning. SS reviewed pt chart. Pt is self pay. [facility]CF[facility] following for self pay status. Pt is from home and is currently on room air. No discharge needs noted at this time. SS will continue to follow for discharge planning.
[2019-03-01] MEDS ORDERED: IODIXANOL 320 MG/ML 100 ML VIAL. ONE (13:35)
[2019-03-01] MEDS ORDERED: LIDOCAINE 1% Multi-Dose 20 ML VIAL. ONE (13:35)
[2019-03-01] MEDS ORDERED: fentaNYL PF VIAL 100 MCG/2 ML VIAL ONE (13:37)
[2019-03-01] MEDS ORDERED: MIDAZOLAM HCL/PF 2 MG/2 ML VIAL. ONE (13:37)
[2019-03-01] MEDS ORDERED: fentaNYL PF VIAL 100 MCG/2 ML VIAL IV ONE (14:00)
[2019-03-01] MEDS ORDERED: MIDAZOLAM HCL/PF 2 MG/2 ML VIAL. IV ONE (14:00)
[2019-03-01] MEDS ORDERED: IODIXANOL 320 MG/ML 100 ML VIAL. IART ONE (14:00)
[2019-03-01] MEDS ORDERED: CONTRAST GIVEN. MC PRN (14:00)
[2019-03-01] MEDS ORDERED: LIDOCAINE 1% Multi-Dose 20 ML VIAL. INJ ONE (14:00)
[2019-03-01] MEDS ORDERED: IV NORMAL SALINE 1000ML BAG 1,000 ML IV SCH (14:52)
--- NOTE | 2019-03-01 14:52 | PDOC ---
MODERATE SEDATION ASSESSMENT RISKS/ALTERNATIVES Risks/Alternatives Risks and alternatives of this type of sedation and procedure discussed with: RISK/ALTERNATIVES: Patient H & P ON CHART H & P H & P on chart and reviewed for co-morbid conditions and appropriate labs. H&P ON CHART: Yes STATUS PREG STATUS ASSESSED: N/A MEDS/ALLERGIES REVIEWED Meds/Allergies Reviewed Medications and Allergies including time and route of recently administered narcotics and sedatives. MEDS/ALLERGIES REVIEWED: Yes ASA RATING ASA RATING: II AIRWAY ASSESSMENT Airway Assessment Airway patency, oral function limitations, presence of caps, crowns, dentures, partials, and ability to extend neck assessed. AIRWAY ASSESSMENT: Yes MALLAMPATI SCORE MALLAMPATI SCORE: II PRE-SEDATION ASSESSMENT PRE-SEDATION ASSESSMENT: Yes AME BROWN MD March 01, 2019 14:52
[2019-03-01] MEDS ORDERED: 0.9 % SODIUM CHLORIDE 10 ML DISP.SYRIN. IV PRN (15:00)
[2019-03-01] MEDS ORDERED: NITROGLYCERIN SUBLINGUAL 0.4 MG BOTTLE OF 25. SL PRN (15:00)
--- NOTE | 2019-03-01 17:41 | CARD ---
MR#: [id number] Date of Study: 03/01/2019 Ordering Physician: SARAH LARKIN, Referring Physician: HEIKE KIMBLE Tech: Yudelka Diego, RT (R) APPROVED REPORT Procedures Left heart catheterization Selective coronary angiogram Left ventriculogram The patient is a 53-year-old male who had a bare metal stent placed to his proximal LAD 11 months ago . Patient was admitted with episodes of progressive chest pain. He has not taking any medications for at least 3-6 months. In this setting a heart catheterization was recommended. Risks and benefits wer e discussed with the patient and he agreed to proceed. After informed consent was obtained the patient was brought to the heart catheterization lab. The are a of the right femoral artery was prepared the usual manner with Betadine, sterile draping and local anesthetic. An 18-gauge needle was used to enter the right femoral artery, a wire placed and a 6 Fren ch sheath placed over the wire. Of note the patient had heavy scarring in the area of previous cathet erization access. Using a J-wire for exchanges, a 6 Welsh JL4 diagnostic catheter was advanced to t he ascending aorta. It was used to engage the left coronary artery and sequential injections in vario us views were obtained. A 6 Welsh Nabil right diagnostic catheter was advanced to the ascending a leonides. It was used to engage the right coronary artery and sequential injections in various views were obtained. A pigtail catheter was advanced to the ascending aorta and then the left ventricle. Pressu res were obtained. A 30 WOOD left ventricular gram was performed. Pullback pressures were measured. T he catheter was removed the patient. The sheath was removed from the patient and sealed with direct p ressure. The patient was moved to the holding area. Findings. Hemodynamics. Left ventricular pressure 130/6,15. Aortic root pressure of 128/78. Coronaries. Left main. The left main had no lesions. Left anterior descending. The LAD was a moderate to moderately large vessel. It had a very proximal 2 0% lesion. Just distal to this it was a previously placed stent which was widely patent. Left circumflex. The left circumflex is a moderate size dominant vessel. Had a proximal 25% lesion. I t had a distal chronic occlusion which was present on catheterization 11 months ago. Right coronary artery. The right coronary was a smaller nondominant vessel with no lesions. Left ventriculogram. The left ventricle had normal systolic function with ejection fraction of greater than 55%. <Conclusion> Widely patent proximal LAD stent. Chronically occluded distal left circumflex vessel. Intact LV systolic function. Signed by : Abhijit Abad MD Electronically Approved : 03/01/2019 17:41:20
[2019-03-01] MEDS ORDERED: ATORVASTATIN CALCIUM 40 MG TABLET. PO SCH (21:00)
[2019-03-01] MEDS: LACTOBACILLUS RHAMNOSUS GG 1 CAPSULE. PO SCH (21:16)
[2019-03-01] MEDS: ENOXAPARIN 40 MG/0.4 ML SYRINGE. SQ SCH (21:17)
[2019-03-02 02:30] VITALS: BP 118/67
[2019-03-02 05:11] LABS: BASO % 1 % (0-3); EOS % 1 % (0-3); HEMATOCRIT 45.2 % (39.0-53.0); HEMOGLOBIN 15.2 g/dL (13.0-17.5); LYMPH # 2.4 x10^3/uL (1.0-4.8); LYMPH % 49 % (24-48); MEAN CORPUSCULAR HEMOGLOBIN 32 pg (25-35); MEAN CORPUSCULAR HGB CONC 34 g/dL (31-37); MEAN CORPUSCULAR VOLUME 95 fL (79-100); MONO # 0.4 x10^3/uL (0.0-1.1); MONO % 7 % (0-9); NEUT % 42 % (31-73); PLATELET COUNT 258 x10^3/uL (140-400); RED BLOOD COUNT 4.78 x10^6/uL (4.30-5.70); WHITE BLOOD COUNT 4.8 x10^3/uL (4.0-11.0)
[2019-03-02 05:32] LABS: ALBUMIN 3.1 g/dL (3.4-5.0); ALBUMIN/GLOBULIN RATIO 0.9 (1.0-1.7); CALCIUM 8.8 mg/dL (8.5-10.1); GFR 94.2; POTASSIUM 3.7 mmol/L (3.5-5.1); TOTAL BILIRUBIN 0.7 mg/dL (0.2-1.0); TOTAL PROTEIN 6.6 g/dL (6.4-8.2)
[2019-03-02 07:00] VITALS: BP 135/71
--- NOTE | 2019-03-02 07:43 | RAD ---
MR#: [id number] Date of Study: 03/01/2019 Ordering Physician: SARAH LARKIN, Referring Physician: HEIKE KIMBLE, Tech: Marita Dodd RDMS, LADANT, RTR APPROVED REPORT Patient Location: IN-PATIENT Indications Pulsatile Mass Abdominla Pain; Abdominal Bruit Duplex Results A/PTransverseLongitudinal Proximal Aorta 2.3cm2.4cm2.6cm Mid Aorta 2.0cm2.3cm2cm Distal Aorta 2.0cm2.0cm2cm Rt. Common Iliac Artery1.2cm1.49cm1.1cm Lt. Common Iliac Artery [id number] Doppler VelocityWaveform Proximal Aorta 89.2 cm/sec Aorta Mid. 39.3 cm/sec Distal Aorta 56.0 cm/sec Rt. Common Iliac Ayjmqa507.2 cm/sec Lt. Common Iliac Artery 70.8 cm/sec Findings Grayscale images of the proximal, mid, distal abdominal aorta and the iliac bifurcation reveals heavy calcific plaque. There is likely a 50% stenosis on melton scale images of the bilateral common iliac v essels. There is no obvious evidence of aneurysm and measurements are noted as above in the abdominal aorta. Based on velocity criteria there is probably a greater than 50% stenosis involving the right common i liac artery. Critical Notification Critical Value: No <Conclusion> 1. No significant abdominal aortic aneurysm 2. Significant heavy plaque burden throughout the abdominal aorta and especially located at the bilat eral common iliac arteries. Signed by : Salbador Curry, Electronically Approved : 03/02/2019 07:43:22
[2019-03-02] MEDS: IPRATRPIUM/ALBUTEROL 0.5/2.5MG 3 ML NEBU. NEB SCH ×2 (08:10→12:06)
[2019-03-02] MEDS ORDERED: IOHEXOL 300 MG/ML 100ML VIAL. IV ONE (08:30)
[2019-03-02] MEDS ORDERED: IOHEXOL 240 MG/ML 50ML VIAL. PO ONE (08:30)
--- NOTE | 2019-03-02 09:07 | PDOC ---
PROGRESS NOTES History of Present Illness History of Present Illness VTE Prophylaxis Ordered VTE Prophylaxis Devices: Yes VTE Pharmacological Prophylaxi: Yes Assessment/Plan Assessment/Plan 60 lbs weight loss with chest pain abd pain and nausea hyperkalemia unstable angina tobacco abuse concerning for malignancy, check Ca 19-9, asymmetric soft tissue fullness at the right gluteus qamar muscle relative to the left side. This could be related to asymmetric muscle hypertrophy. An intramuscular mass would be considered less likely but cannot be excluded. Correlate clinically. HOME IF OK WITH GI cardiac cath OK marked depression, major depression has avoided doctors and has not been compliant with meds after his heart attack last year tobacco use disorder Smoking cessation counseling provided. He no longer plans to smoke cigarettes and marijuana and cocaine. OK WITH pulmonary standpoint, no additional workup is needed and could be discharged home Vitals Vitals Vital Signs Date Time Temp Pulse Resp B/P (MAP) Pulse Ox O2 Delivery O2 Flow Rate FiO2 03/02/19 08:11 100 Room Air 03/02/19 02:30 98.3 59 18 118/67 (84) 98.3 03/01/19 19:45 2.0 Physical Exam General: Alert, Oriented X3, Cooperative, No acute distress Heart: Regular rate (SR), Normal S1, Normal S2, Other (2/6 systolic murmur to LLS border) Lungs: Clear, Wheezing Abdomen: Normal bowel sounds, Soft, No tenderness Extremities: No clubbing, No cyanosis, No edema Skin: No breakdown, No significant lesion Labs LABS CT abdomen pelvis with contrast dated 03/02/2019. No comparison available. Clinical data indication: Weight loss. TECHNIQUE: Contiguous axial imaging the abdomen and pelvis performed after the administration of 75 cc Omnipaque 300. One or more of the following individualized dose reduction techniques were utilized for this examination: 1. Automated exposure control 2. Adjustment of the mA and/or kV according to patient size 3. Use of iterative reconstruction technique FINDINGS: Limited images of lung bases are clear. Heart size within normal limits. No pleural or pericardial effusion. Liver is homogeneous. No apparent hepatic mass. Biliary tree normal in caliber. There is layering hyperdensity the gallbladder lumen consistent with sludge. Spleen is normal in size. Pancreas, adrenal glands and kidneys are unremarkable. No hydronephrosis. Partially opacified GI tract normal in caliber and contour. No focal bowel wall thickening. No inflammatory stranding in the mesentery. The appendix is normal in caliber. Abdominal aorta is normal in caliber. There is atherosclerotic changes throughout the distal abdominal aorta and bilateral iliac systems. Suspected mild to moderate grade narrowing of the distal left common iliac. Bone windows show no acute findings. There is generalized muscle hypertrophy. There is some asymmetric fullness of the right gluteus qamar muscle relative to the left side. A definite mass is not visualized. IMPRESSION: 1. No acute abnormality of abdomen or pelvis. 2. Sludge-filled gallbladder. 3. Premature atherosclerotic changes of the abdominal aorta and bilateral iliac system. There is suspected mild/moderate grade narrowing of the common iliac artery on the left. 4. There are some asymmetric soft tissue fullness at the right gluteus qamar muscle relative to the left side. This could be related to asymmetric muscle hypertrophy. An intramuscular mass would be considered less likely but cannot be excluded. Correlate clinically. Images of the pelvis show nondistended urinary bladder. Prostate gland mildly enlarged. No free fluid or pelvic lymphadenopathy. Electronically signed by: Brian Maxwell MD (03/02/2019 9:41 AM) [id number] DICTATED and SIGNED BY: BRIAN MAXWELL MD DATE: 03/02/19 0941 Laboratory Tests Test 03/01/19 10:26 03/02/19 04:15 Troponin I Quantitative < 0.017 ng/mL (0.000-0.055) White Blood Count 4.8 x10^3/uL (4.0-11.0) Red Blood Count 4.78 x10^6/uL (4.30-5.70) Hemoglobin 15.2 g/dL (13.0-17.5) Hematocrit 45.2 % (39.0-53.0) Mean Corpuscular Volume 95 fL (79-100) Mean Corpuscular Hemoglobin 32 pg (25-35) Mean Corpuscular Hemoglobin Concent 34 g/dL (31-37) Red Cell Distribution Width 14.0 % (11.5-14.5) Platelet Count 258 x10^3/uL (140-400) Neutrophils (%) (Auto) 42 % (31-73) Lymphocytes (%) (Auto) 49 % (24-48) Monocytes (%) (Auto) 7 % (0-9) Eosinophils (%) (Auto) 1 % (0-3) Basophils (%) (Auto) 1 % (0-3) Neutrophils # (Auto) 2.0 x10^3uL (1.8-7.7) Lymphocytes # (Auto) 2.4 x10^3/uL (1.0-4.8) Monocytes # (Auto) 0.4 x10^3/uL (0.0-1.1) Eosinophils # (Auto) 0.0 x10^3/uL (0.0-0.7) Basophils # (Auto) 0.0 x10^3/uL (0.0-0.2) Sodium Level 137 mmol/L (136-145) Potassium Level 3.7 mmol/L (3.5-5.1) Chloride Level 101 mmol/L (98-107) Carbon Dioxide Level 28 mmol/L (21-32) Anion Gap 8 (6-14) Blood Urea Nitrogen 12 mg/dL (8-26) Creatinine 1.0 mg/dL (0.7-1.3) Estimated GFR (Cockcroft-Gault) 94.2 BUN/Creatinine Ratio 12 (6-20) Glucose Level 101 mg/dL (70-99) Calcium Level 8.8 mg/dL (8.5-10.1) Total Bilirubin 0.7 mg/dL (0.2-1.0) Aspartate Amino Transf (AST/SGOT) 16 U/L (15-37) Alanine Aminotransferase (ALT/SGPT) 18 U/L (16-63) Alkaline Phosphatase 43 U/L (46-116) Total Protein 6.6 g/dL (6.4-8.2) Albumin 3.1 g/dL (3.4-5.0) Albumin/Globulin Ratio 0.9 (1.0-1.7) Assessment and Plan Assessmemt and Plan Problems Medical Problems: (1) Chest pain Status: Acute Comment Review of Relevant I have reviewed the following items sina (where applicable) has been applied. Labs Laboratory Tests Test 02/28/19 10:34 02/28/19 11:34 02/28/19 19:20 03/01/19 05:45 White Blood Count 4.1 x10^3/uL (4.0-11.0) 4.2 x10^3/uL (4.0-11.0) Red Blood Count 5.73 x10^6/uL (4.30-5.70) 5.22 x10^6/uL (4.30-5.70) Hemoglobin 18.2 g/dL (13.0-17.5) 17.1 g/dL (13.0-17.5) Hematocrit 54.3 % (39.0-53.0) 49.5 % (39.0-53.0) Mean Corpuscular Volume 95 fL (79-100) 95 fL (79-100) Mean Corpuscular Hemoglobin 32 pg (25-35) 33 pg (25-35) Mean Corpuscular Hemoglobin Concent 34 g/dL (31-37) 35 g/dL (31-37) Red Cell Distribution Width 14.2 % (11.5-14.5) 13.9 % (11.5-14.5) Platelet Count 294 x10^3/uL (140-400) 263 x10^3/uL (140-400) Neutrophils (%) (Auto) 36 % (31-73) 28 % (31-73) Lymphocytes (%) (Auto) 53 % (24-48) 61 % (24-48) Monocytes (%) (Auto) 10 % (0-9) 8 % (0-9) Eosinophils (%) (Auto) 0 % (0-3) 1 % (0-3) Basophils (%) (Auto) 1 % (0-3) 1 % (0-3) Neutrophils # (Auto) 1.5 x10^3uL (1.8-7.7) 1.2 x10^3uL (1.8-7.7) Lymphocytes # (Auto) 2.1 x10^3/uL (1.0-4.8) 2.6 x10^3/uL (1.0-4.8) Monocytes # (Auto) 0.4 x10^3/uL (0.0-1.1) 0.4 x10^3/uL (0.0-1.1) Eosinophils # (Auto) 0.0 x10^3/uL (0.0-0.7) 0.0 x10^3/uL (0.0-0.7) Basophils # (Auto) 0.1 x10^3/uL (0.0-0.2) 0.1 x10^3/uL (0.0-0.2) Sodium Level 140 mmol/L (136-145) 137 mmol/L (136-145) Potassium Level 3.9 mmol/L (3.5-5.1) 3.5 mmol/L (3.5-5.1) Chloride Level 97 mmol/L (98-107) 98 mmol/L (98-107) Carbon Dioxide Level 34 mmol/L (21-32) 31 mmol/L (21-32) Anion Gap 9 (6-14) 8 (6-14) Blood Urea Nitrogen 23 mg/dL (8-26) 18 mg/dL (8-26) Creatinine 1.5 mg/dL (0.7-1.3) 1.1 mg/dL (0.7-1.3) Estimated GFR (Cockcroft-Gault) 59.0 84.4 BUN/Creatinine Ratio 15 (6-20) 16 (6-20) Glucose Level 90 mg/dL (70-99) 99 mg/dL (70-99) Calcium Level 10.2 mg/dL (8.5-10.1) 9.2 mg/dL (8.5-10.1) Magnesium Level 2.4 mg/dL (1.8-2.4) Total Bilirubin 1.4 mg/dL (0.2-1.0) 1.2 mg/dL (0.2-1.0) Aspartate Amino Transf (AST/SGOT) 22 U/L (15-37) 18 U/L (15-37) Alanine Aminotransferase (ALT/SGPT) 26 U/L (16-63) 22 U/L (16-63) Alkaline Phosphatase 57 U/L (46-116) 18 U/L (46-116) LZ-Rta-R-Type Natriuretic Peptide 54 pg/mL (0-124) Total Protein 8.3 g/dL (6.4-8.2) 7.6 g/dL (6.4-8.2) Albumin 4.2 g/dL (3.4-5.0) 3.5 g/dL (3.4-5.0) Albumin/Globulin Ratio 1.0 (1.0-1.7) 0.9 (1.0-1.7) Lipase 100 U/L (73-393) Bedside Troponin I 0.01 ng/ml (<0.08) Urine Collection Type Unknown Urine Color [place] Urine Clarity Clear Urine pH 7.0 Urine Specific [place] 1.025 Urine Protein 30 mg/dL (NEG-TRACE) Urine Glucose (UA) Negative mg/dL (NEG) Urine Ketones (Stick) Trace mg/dL (NEG) Urine Blood Negative (NEG) Urine Nitrite Negative (NEG) Urine Bilirubin Small (NEG) Urine Urobilinogen Dipstick 4.0 mg/dL (0.2 mg/dL) Urine Leukocyte Esterase Small (NEG) Urine RBC Rare /HPF (0-2) Urine WBC 5-10 /HPF (0-4) Urine Squamous Epithelial Cells Few /LPF Urine Bacteria 0 /HPF (0-FEW) Urine Mucus Slight /LPF Erythrocyte Sedimentation Rate 5 (0-15) Ionized Calcium 1.06 mmol/L (1.13-1.32) Troponin I Quantitative 0.027 ng/mL (0.000-0.055) C-Reactive Protein, Quantitative 3.0 mg/L (0-3.3) Triglycerides Level 83 mg/dL (0-150) Cholesterol Level 156 mg/dL (0-200) LDL Cholesterol, Calculated 108 mg/dL (0-100) VLDL Cholesterol, Calculated 17 mg/dL (0-40) Non-HDL Cholesterol Calculated 125 mg/dL (0-129) HDL Cholesterol 31 mg/dL (40-60) Cholesterol/HDL Ratio 5.0 Test 03/01/19 10:26 03/02/19 04:15 Troponin I Quantitative < 0.017 ng/mL (0.000-0.055) White Blood Count 4.8 x10^3/uL (4.0-11.0) Red Blood Count 4.78 x10^6/uL (4.30-5.70) Hemoglobin 15.2 g/dL (13.0-17.5) Hematocrit 45.2 % (39.0-53.0) Mean Corpuscular Volume 95 fL (79-100) Mean Corpuscular Hemoglobin 32 pg (25-35) Mean Corpuscular Hemoglobin Concent 34 g/dL (31-37) Red Cell Distribution Width 14.0 % (11.5-14.5) Platelet Count 258 x10^3/uL (140-400) Neutrophils (%) (Auto) 42 % (31-73) Lymphocytes (%) (Auto) 49 % (24-48) Monocytes (%) (Auto) 7 % (0-9) Eosinophils (%) (Auto) 1 % (0-3) Basophils (%) (Auto) 1 % (0-3) Neutrophils # (Auto) 2.0 x10^3uL (1.8-7.7) Lymphocytes # (Auto) 2.4 x10^3/uL (1.0-4.8) Monocytes # (Auto) 0.4 x10^3/uL (0.0-1.1) Eosinophils # (Auto) 0.0 x10^3/uL (0.0-0.7) Basophils # (Auto) 0.0 x10^3/uL (0.0-0.2) Sodium Level 137 mmol/L (136-145) Potassium Level 3.7 mmol/L (3.5-5.1) Chloride Level 101 mmol/L (98-107) Carbon Dioxide Level 28 mmol/L (21-32) Anion Gap 8 (6-14) Blood Urea Nitrogen 12 mg/dL (8-26) Creatinine 1.0 mg/dL (0.7-1.3) Estimated GFR (Cockcroft-Gault) 94.2 BUN/Creatinine Ratio 12 (6-20) Glucose Level 101 mg/dL (70-99) Calcium Level 8.8 mg/dL (8.5-10.1) Total Bilirubin 0.7 mg/dL (0.2-1.0) Aspartate Amino Transf (AST/SGOT) 16 U/L (15-37) Alanine Aminotransferase (ALT/SGPT) 18 U/L (16-63) Alkaline Phosphatase 43 U/L (46-116) Total Protein 6.6 g/dL (6.4-8.2) Albumin 3.1 g/dL (3.4-5.0) Albumin/Globulin Ratio 0.9 (1.0-1.7) Laboratory Tests Test 03/01/19 10:26 03/02/19 04:15 Troponin I Quantitative < 0.017 ng/mL (0.000-0.055) White Blood Count 4.8 x10^3/uL (4.0-11.0) Red Blood Count 4.78 x10^6/uL (4.30-5.70) Hemoglobin 15.2 g/dL (13.0-17.5) Hematocrit 45.2 % (39.0-53.0) Mean Corpuscular Volume 95 fL (79-100) Mean Corpuscular Hemoglobin 32 pg (25-35) Mean Corpuscular Hemoglobin Concent 34 g/dL (31-37) Red Cell Distribution Width 14.0 % (11.5-14.5) Platelet Count 258 x10^3/uL (140-400) Neutrophils (%) (Auto) 42 % (31-73) Lymphocytes (%) (Auto) 49 % (24-48) Monocytes (%) (Auto) 7 % (0-9) Eosinophils (%) (Auto) 1 % (0-3) Basophils (%) (Auto) 1 % (0-3) Neutrophils # (Auto) 2.0 x10^3uL (1.8-7.7) Lymphocytes # (Auto) 2.4 x10^3/uL (1.0-4.8) Monocytes # (Auto) 0.4 x10^3/uL (0.0-1.1) Eosinophils # (Auto) 0.0 x10^3/uL (0.0-0.7) Basophils # (Auto) 0.0 x10^3/uL (0.0-0.2) Sodium Level 137 mmol/L (136-145) Potassium Level 3.7 mmol/L (3.5-5.1) Chloride Level 101 mmol/L (98-107) Carbon Dioxide Level 28 mmol/L (21-32) Anion Gap 8 (6-14) Blood Urea Nitrogen 12 mg/dL (8-26) Creatinine 1.0 mg/dL (0.7-1.3) Estimated GFR (Cockcroft-Gault) 94.2 BUN/Creatinine Ratio 12 (6-20) Glucose Level 101 mg/dL (70-99) Calcium Level 8.8 mg/dL (8.5-10.1) Total Bilirubin 0.7 mg/dL (0.2-1.0) Aspartate Amino Transf (AST/SGOT) 16 U/L (15-37) Alanine Aminotransferase (ALT/SGPT) 18 U/L (16-63) Alkaline Phosphatase 43 U/L (46-116) Total Protein 6.6 g/dL (6.4-8.2) Albumin 3.1 g/dL (3.4-5.0) Albumin/Globulin Ratio 0.9 (1.0-1.7) Medications Current Medications Ondansetron HCl (Zofran) 4 mg 1X ONCE IV Last administered on 02/28/19at 12:42; Start 02/28/19 at 12:30; Stop 02/28/19 at 12:31; Status DC Aspirin ([employer] Aspirin) 325 mg 1X ONCE PO Last administered on 02/28/19at 18:06; Start 02/28/19 at 17:30; Stop 02/28/19 at 17:31; Status DC Aspirin ([employer] Aspirin) 325 mg DAILYWBKFT PO Last administered on 03/01/19at 08:12; Start 03/01/19 at 08:00 Albuterol/ Ipratropium (Duoneb) 3 ml RTQID NEB Last administered on 03/02/19at 08:10; Start 02/28/19 at 20:00 Enoxaparin Sodium (Lovenox Per Pharmacy Prophylaxis Dosing) 1 each PRN DAILY PRN MC SEE COMMENTS; Start 02/28/19 at 17:00; Stop 02/28/19 at 17:00; Status DC Enoxaparin Sodium (Lovenox 40mg Syringe) 40 mg Q24H SQ Last administered on 02/15 03/05at 21:17; Start 02/28/19 at 21:00 Morphine Sulfate (Morphine Sulfate) 4 mg PRN Q2HR PRN IV PAIN; Start 02/28/19 at 17:15 Oxycodone/ Acetaminophen (Percocet 5/325) 1 tab PRN Q4HRS PRN PO PAIN Last administered on 02/28/19at 22:52; Start 02/28/19 at 17:15 Albuterol/ Ipratropium (Duoneb) 3 ml STK-MED ONCE .ROUTE ; Start 02/28/19 at 18:00; Stop 02/28/19 at 18:01; Status DC Atorvastatin Calcium (Lipitor) 40 mg QHS PO Last administered on 03/01/19at 21:16; Start 03/01/19 at 21:00 Ceftriaxone Sodium (Rocephin) 1 gm Q24H IVP Last administered on 03/01/19at 11:37; Start 03/01/19 at 11:00 Iodixanol (Visipaque 320) 100 ml STK-MED ONCE .ROUTE ; Start 03/01/19 at 13:35; Stop 03/01/19 at 13:36; Status DC Lidocaine HCl (Lidocaine 1% 20ml Vial) 20 ml STK-MED ONCE .ROUTE ; Start 03/01/19 at 13:35; Stop 03/01/19 at 13:36; Status DC Heparin Sodium/ Sodium Chloride 1,000 ml @ As Directed STK-MED ONCE .ROUTE ; Start 03/01/19 at 13:35; Stop 03/01/19 at 13:36; Status DC Fentanyl Citrate (Fentanyl 2ml Vial) 100 mcg STK-MED ONCE .ROUTE ; Start 03/01/19 at 13:37; Stop 03/01/19 at 13:38; Status DC Midazolam HCl (Versed) 2 mg STK-MED ONCE .ROUTE ; Start 03/01/19 at 13:37; Stop 03/01/19 at 13:38; Status DC Heparin Sodium/ Sodium Chloride (HEPARIN for ARTERIAL LINE FLUSH) 1,000 unit 1X ONCE IART Last administered on 03/01/19at 14:00; Start 03/01/19 at 14:00; Stop 03/01/19 at 14:01; Status DC Midazolam HCl (Versed) 2 mg 1X ONCE IV Last administered on 03/01/19at 14:00; Start 03/01/19 at 14:00; Stop 03/01/19 at 14:01; Status DC Fentanyl Citrate (Fentanyl 2ml Vial) 100 mcg 1X ONCE IV Last administered on 03/01/19at 14:00; Start 03/01/19 at 14:00; Stop 03/01/19 at 14:01; Status DC Iodixanol (Visipaque 320) 100 ml 1X ONCE IART Last administered on 03/01/19at 14:00; Start 03/01/19 at 14:00; Stop 03/01/19 at 14:01; Status DC Lidocaine HCl (Lidocaine 1% 20ml Vial) 20 ml 1X ONCE INJ Last administered on 03/01/19at 14:00; Start 03/01/19 at 14:00; Stop 03/01/19 at 14:01; Status DC Info (CONTRAST GIVEN -- Rx MONITORING) 1 each PRN DAILY PRN MC SEE COMMENTS; Start 03/01/19 at 14:00; Stop 03/03/19 at 13:59 Lactobacillus Rhamnosus (Culturelle) 1 cap BID PO Last administered on 03/01/19at 21:16; Start 03/01/19 at 21:00 Sodium Chloride (Normal Saline Flush) 3 ml QSHIFT PRN IV AFTER MEDS AND BLOOD DRAWS; Start 03/01/19 at 15:00 Sodium Chloride 1,000 ml @ 75 mls/hr [id number] IV Last administered on 03/01/19at 15:53; Start 03/01/19 at 14:52; Stop 03/01/19 at 19:51; Status DC Nitroglycerin (Nitrostat) 0.4 mg PRN Q5MIN PRN SL CHEST PAIN; Start 03/01/19 at 15:00 Iohexol (Omnipaque 240 Mg/ml) 50 ml 1X ONCE PO ; Start 03/02/19 at 08:30; Stop 03/02/19 at 08:31; Status DC Iohexol (Omnipaque 300 Mg/ml) 100 ml 1X ONCE IV ; Start 03/02/19 at 08:30; Stop 03/02/19 at 08:31; Status DC Active Scripts Active Metoprolol Tartrate 25 Mg Tablet 12.5 Mg PO BID 30 Days Lisinopril 5 Mg Tablet 5 Mg PO DAILY 30 Days Atorvastatin Calcium 20 Mg Tablet 20 Mg PO QHS 30 Days Aspirin Ec (Aspirin) 81 Mg Tablet.dr 81 Mg PO DAILYWBKFT 30 Days Vitals/I & O Vital Sign - Last 24 Hours 03/01/19 03/01/19 03/01/19 03/01/19 11:00 11:47 14:00 14:19 Temp 99.0 99.0 Pulse 70 64 Resp 16 19 17 B/P (MAP) 118/78 (91) Pulse Ox 99 98 100 100 O2 Delivery Room Air Room Air Nasal Cannula Room Air O2 Flow Rate 2.0 03/01/19 03/01/19 03/01/19 03/01/19 14:30 14:40 14:49 14:55 Pulse 64 71 78 Resp 20 B/P (MAP) 134/80 (98) 133/84 (100) Pulse Ox 100 100 O2 Delivery Room Air Room Air 03/01/19 03/01/19 03/01/19 03/01/19 15:10 15:25 15:40 16:10 Pulse 86 82 80 79 B/P (MAP) 138/89 (105) 143/93 (110) 141/73 (95) 119/80 (93) 03/01/19 03/01/19 03/01/19 03/01/19 16:40 17:45 18:45 19:12 Temp 98.5 98.5 Pulse 72 84 70 71 Resp 16 B/P (MAP) 127/71 (89) 139/80 (99) 128/79 (95) 133/82 (99) Pulse Ox 99 O2 Delivery Room Air 03/01/19 03/01/19 03/01/19 03/02/19 19:45 20:07 22:27 02:30 Temp 98.1 98.3 98.1 98.3 Pulse 74 59 Resp 16 18 B/P (MAP) 126/81 (96) 118/67 (84) Pulse Ox 98 100 99 O2 Delivery Room Air Room Air Room Air Room Air O2 Flow Rate 2.0 03/02/19 08:11 Pulse Ox 100 O2 Delivery Room Air Intake and Output 03/01/19 03/01/19 03/02/19 15:00 23:00 07:00 Intake Total 0 ml 1520 ml Output Total 0 ml 200 ml 275 ml Balance 0 ml -200 ml 1245 ml KEN SHRESTHA MD March 02, 2019 09:07
--- NOTE | 2019-03-02 09:43 | RAD ---
CT abdomen pelvis with contrast dated 03/02/2019. No comparison available. Clinical data indication: Weight loss. TECHNIQUE: Contiguous axial imaging the abdomen and pelvis performed after the administration of 75 cc Omnipaque 300. One or more of the following individualized dose reduction techniques were utilized for this examination: 1. Automated exposure control 2. Adjustment of the mA and/or kV according to patient size 3. Use of iterative reconstruction technique FINDINGS: Limited images of lung bases are clear. Heart size within normal limits. No pleural or pericardial effusion. Liver is homogeneous. No apparent hepatic mass. Biliary tree normal in caliber. There is layering hyperdensity the gallbladder lumen consistent with sludge. Spleen is normal in size. Pancreas, adrenal glands and kidneys are unremarkable. No hydronephrosis. Partially opacified GI tract normal in caliber and contour. No focal bowel wall thickening. No inflammatory stranding in the mesentery. The appendix is normal in caliber. Abdominal aorta is normal in caliber. There is atherosclerotic changes throughout the distal abdominal aorta and bilateral iliac systems. Suspected mild to moderate grade narrowing of the distal left common iliac. Bone windows show no acute findings. There is generalized muscle hypertrophy. There is some asymmetric fullness of the right gluteus qamar muscle relative to the left side. A definite mass is not visualized. IMPRESSION: 1. No acute abnormality of abdomen or pelvis. 2. Sludge-filled gallbladder. 3. Premature atherosclerotic changes of the abdominal aorta and bilateral iliac system. There is suspected mild/moderate grade narrowing of the common iliac artery on the left. 4. There are some asymmetric soft tissue fullness at the right gluteus qamar muscle relative to the left side. This could be related to asymmetric muscle hypertrophy. An intramuscular mass would be considered less likely but cannot be excluded. Correlate clinically. Images of the pelvis show nondistended urinary bladder. Prostate gland mildly enlarged. No free fluid or pelvic lymphadenopathy. Electronically signed by: Brian Maxwell MD (03/02/2019 9:41 AM) [id number]
[2019-03-02 11:00] VITALS: BP 127/69
[2019-03-02] MEDS: LACTOBACILLUS RHAMNOSUS GG 1 CAPSULE. PO SCH (11:05)
[2019-03-02] MEDS: ASPIRIN 325 MG TABLET PO SCH (11:05)
[2019-03-02] MEDS: cefTRIAXone IV Push 1 GM VIAL. IVP SCH (11:09)
--- NOTE | 2019-03-02 11:35 | PDOC ---
PULMONARY PROGRESS NOTES Subjective no CP/ SOA Vitals Vital Signs Date Time Temp Pulse Resp B/P (MAP) Pulse Ox O2 Delivery O2 Flow Rate FiO2 03/02/19 11:00 98.5 98 16 127/69 (88) 100 Room Air 98.5 03/01/19 19:45 2.0 General: Alert, No acute distress Lungs: Clear Cardiovascular: S1 Abdomen: Soft Neuro Exam: Alert Extremities: No Edema Skin: Warm Labs Laboratory Tests Test 02/28/19 19:20 03/01/19 05:45 03/01/19 10:26 03/02/19 04:15 Urine Collection Type Unknown Urine Color [place] Urine Clarity Clear Urine pH 7.0 Urine Specific [place] 1.025 Urine Protein 30 mg/dL (NEG-TRACE) Urine Glucose (UA) Negative mg/dL (NEG) Urine Ketones (Stick) Trace mg/dL (NEG) Urine Blood Negative (NEG) Urine Nitrite Negative (NEG) Urine Bilirubin Small (NEG) Urine Urobilinogen Dipstick 4.0 mg/dL (0.2 mg/dL) Urine Leukocyte Esterase Small (NEG) Urine RBC Rare /HPF (0-2) Urine WBC 5-10 /HPF (0-4) Urine Squamous Epithelial Cells Few /LPF Urine Bacteria 0 /HPF (0-FEW) Urine Mucus Slight /LPF White Blood Count 4.2 x10^3/uL (4.0-11.0) 4.8 x10^3/uL (4.0-11.0) Red Blood Count 5.22 x10^6/uL (4.30-5.70) 4.78 x10^6/uL (4.30-5.70) Hemoglobin 17.1 g/dL (13.0-17.5) 15.2 g/dL (13.0-17.5) Hematocrit 49.5 % (39.0-53.0) 45.2 % (39.0-53.0) Mean Corpuscular Volume 95 fL (79-100) 95 fL (79-100) Mean Corpuscular Hemoglobin 33 pg (25-35) 32 pg (25-35) Mean Corpuscular Hemoglobin Concent 35 g/dL (31-37) 34 g/dL (31-37) Red Cell Distribution Width 13.9 % (11.5-14.5) 14.0 % (11.5-14.5) Platelet Count 263 x10^3/uL (140-400) 258 x10^3/uL (140-400) Neutrophils (%) (Auto) 28 % (31-73) 42 % (31-73) Lymphocytes (%) (Auto) 61 % (24-48) 49 % (24-48) Monocytes (%) (Auto) 8 % (0-9) 7 % (0-9) Eosinophils (%) (Auto) 1 % (0-3) 1 % (0-3) Basophils (%) (Auto) 1 % (0-3) 1 % (0-3) Neutrophils # (Auto) 1.2 x10^3uL (1.8-7.7) 2.0 x10^3uL (1.8-7.7) Lymphocytes # (Auto) 2.6 x10^3/uL (1.0-4.8) 2.4 x10^3/uL (1.0-4.8) Monocytes # (Auto) 0.4 x10^3/uL (0.0-1.1) 0.4 x10^3/uL (0.0-1.1) Eosinophils # (Auto) 0.0 x10^3/uL (0.0-0.7) 0.0 x10^3/uL (0.0-0.7) Basophils # (Auto) 0.1 x10^3/uL (0.0-0.2) 0.0 x10^3/uL (0.0-0.2) Erythrocyte Sedimentation Rate 5 (0-15) Sodium Level 137 mmol/L (136-145) 137 mmol/L (136-145) Potassium Level 3.5 mmol/L (3.5-5.1) 3.7 mmol/L (3.5-5.1) Chloride Level 98 mmol/L (98-107) 101 mmol/L (98-107) Carbon Dioxide Level 31 mmol/L (21-32) 28 mmol/L (21-32) Anion Gap 8 (6-14) 8 (6-14) Blood Urea Nitrogen 18 mg/dL (8-26) 12 mg/dL (8-26) Creatinine 1.1 mg/dL (0.7-1.3) 1.0 mg/dL (0.7-1.3) Estimated GFR (Cockcroft-Gault) 84.4 94.2 BUN/Creatinine Ratio 16 (6-20) 12 (6-20) Glucose Level 99 mg/dL (70-99) 101 mg/dL (70-99) Calcium Level 9.2 mg/dL (8.5-10.1) 8.8 mg/dL (8.5-10.1) Ionized Calcium 1.06 mmol/L (1.13-1.32) Total Bilirubin 1.2 mg/dL (0.2-1.0) 0.7 mg/dL (0.2-1.0) Aspartate Amino Transf (AST/SGOT) 18 U/L (15-37) 16 U/L (15-37) Alanine Aminotransferase (ALT/SGPT) 22 U/L (16-63) 18 U/L (16-63) Alkaline Phosphatase 18 U/L (46-116) 43 U/L (46-116) Troponin I Quantitative 0.027 ng/mL (0.000-0.055) < 0.017 ng/mL (0.000-0.055) C-Reactive Protein, Quantitative 3.0 mg/L (0-3.3) Total Protein 7.6 g/dL (6.4-8.2) 6.6 g/dL (6.4-8.2) Albumin 3.5 g/dL (3.4-5.0) 3.1 g/dL (3.4-5.0) Albumin/Globulin Ratio 0.9 (1.0-1.7) 0.9 (1.0-1.7) Triglycerides Level 83 mg/dL (0-150) Cholesterol Level 156 mg/dL (0-200) LDL Cholesterol, Calculated 108 mg/dL (0-100) VLDL Cholesterol, Calculated 17 mg/dL (0-40) Non-HDL Cholesterol Calculated 125 mg/dL (0-129) HDL Cholesterol 31 mg/dL (40-60) Cholesterol/HDL Ratio 5.0 Laboratory Tests Test 03/02/19 04:15 White Blood Count 4.8 x10^3/uL (4.0-11.0) Red Blood Count 4.78 x10^6/uL (4.30-5.70) Hemoglobin 15.2 g/dL (13.0-17.5) Hematocrit 45.2 % (39.0-53.0) Mean Corpuscular Volume 95 fL (79-100) Mean Corpuscular Hemoglobin 32 pg (25-35) Mean Corpuscular Hemoglobin Concent 34 g/dL (31-37) Red Cell Distribution Width 14.0 % (11.5-14.5) Platelet Count 258 x10^3/uL (140-400) Neutrophils (%) (Auto) 42 % (31-73) Lymphocytes (%) (Auto) 49 % (24-48) Monocytes (%) (Auto) 7 % (0-9) Eosinophils (%) (Auto) 1 % (0-3) Basophils (%) (Auto) 1 % (0-3) Neutrophils # (Auto) 2.0 x10^3uL (1.8-7.7) Lymphocytes # (Auto) 2.4 x10^3/uL (1.0-4.8) Monocytes # (Auto) 0.4 x10^3/uL (0.0-1.1) Eosinophils # (Auto) 0.0 x10^3/uL (0.0-0.7) Basophils # (Auto) 0.0 x10^3/uL (0.0-0.2) Sodium Level 137 mmol/L (136-145) Potassium Level 3.7 mmol/L (3.5-5.1) Chloride Level 101 mmol/L (98-107) Carbon Dioxide Level 28 mmol/L (21-32) Anion Gap 8 (6-14) Blood Urea Nitrogen 12 mg/dL (8-26) Creatinine 1.0 mg/dL (0.7-1.3) Estimated GFR (Cockcroft-Gault) 94.2 BUN/Creatinine Ratio 12 (6-20) Glucose Level 101 mg/dL (70-99) Calcium Level 8.8 mg/dL (8.5-10.1) Total Bilirubin 0.7 mg/dL (0.2-1.0) Aspartate Amino Transf (AST/SGOT) 16 U/L (15-37) Alanine Aminotransferase (ALT/SGPT) 18 U/L (16-63) Alkaline Phosphatase 43 U/L (46-116) Total Protein 6.6 g/dL (6.4-8.2) Albumin 3.1 g/dL (3.4-5.0) Albumin/Globulin Ratio 0.9 (1.0-1.7) Medications Active Scripts Medications Dose Route/Sig Max Daily Dose Days Date Category Metoprolol Tartrate 25 Mg Tablet 12.5 Mg PO BID 30 03/30/17 Rx Lisinopril 5 Mg Tablet 5 Mg PO DAILY 30 03/30/17 Rx Atorvastatin Calcium 20 Mg Tablet 20 Mg PO QHS 30 03/30/17 Rx Aspirin Ec (Aspirin) 81 Mg Tablet. 81 Mg PO DAILYWBKFT 03/30/17 Rx Impression . 1. Chest pain in a patient who has coronary artery disease and prior stent placement. cardiac catheterization 03/01. patent stent 2. Twenty years of tobacco use, suspect underlying chronic obstructive pulmonary disease. He smoked cocaine and marijuana as well. 3. Clear chest x-ray. Plan . 1. Followup Cardiology recommendations 2. Smoking cessation counseling provided. He no longer plans to smoke cigarettes and marijuana and cocaine. 3. From a pulmonary standpoint, no additional workup is needed and could be discharged home Discussed with RN. MICHAEL CRONIN MD March 02, 2019 11:35
--- NOTE | 2019-03-02 12:49 | PDOC ---
Subjective: Subjective: Feels good - has a "really big" appetite and has ordered another tray of food. Hopeful to DC soon. Objective: Vital Signs: Vital Signs Date Time Temp Pulse Resp B/P (MAP) Pulse Ox O2 Delivery O2 Flow Rate FiO2 03/02/19 12:06 Room Air 03/02/19 11:00 98.5 98 16 127/69 (88) 100 98.5 03/01/19 19:45 2.0 Labs: Laboratory Tests Test 03/02/19 04:15 White Blood Count 4.8 x10^3/uL Red Blood Count 4.78 x10^6/uL Hemoglobin 15.2 g/dL Hematocrit 45.2 % Mean Corpuscular Volume 95 fL Mean Corpuscular Hemoglobin 32 pg Mean Corpuscular Hemoglobin Concent 34 g/dL Red Cell Distribution Width 14.0 % Platelet Count 258 x10^3/uL Neutrophils (%) (Auto) 42 % Lymphocytes (%) (Auto) 49 % Monocytes (%) (Auto) 7 % Eosinophils (%) (Auto) 1 % Basophils (%) (Auto) 1 % Neutrophils # (Auto) 2.0 x10^3uL Lymphocytes # (Auto) 2.4 x10^3/uL Monocytes # (Auto) 0.4 x10^3/uL Eosinophils # (Auto) 0.0 x10^3/uL Basophils # (Auto) 0.0 x10^3/uL Sodium Level 137 mmol/L Potassium Level 3.7 mmol/L Chloride Level 101 mmol/L Carbon Dioxide Level 28 mmol/L Anion Gap 8 Blood Urea Nitrogen 12 mg/dL Creatinine 1.0 mg/dL Estimated GFR (Cockcroft-Gault) 94.2 BUN/Creatinine Ratio 12 Glucose Level 101 mg/dL Calcium Level 8.8 mg/dL Total Bilirubin 0.7 mg/dL Aspartate Amino Transf (AST/SGOT) 16 U/L Alanine Aminotransferase (ALT/SGPT) 18 U/L Alkaline Phosphatase 43 U/L Total Protein 6.6 g/dL Albumin 3.1 g/dL Albumin/Globulin Ratio 0.9 Imaging: CT A/P w/ PO & IV contrast FINDINGS: Limited images of lung bases are clear. Heart size within normal limits. No pleural or pericardial effusion. Liver is homogeneous. No apparent hepatic mass. Biliary tree normal in caliber. There is layering hyperdensity the gallbladder lumen consistent with sludge. Spleen is normal in size. Pancreas, adrenal glands and kidneys are unremarkable. No hydronephrosis. Partially opacified GI tract normal in caliber and contour. No focal bowel wall thickening. No inflammatory stranding in the mesentery. The appendix is normal in caliber. Abdominal aorta is normal in caliber. There is atherosclerotic changes throughout the distal abdominal aorta and bilateral iliac systems. Suspe cted mild to moderate grade narrowing of the distal left common iliac. Bone windows show no acute findings. There is generalized muscle hypertrophy. There is some asymmetric fullness of the right gluteus qamar muscle relative to the left side. A definite mass is not visualized. IMPRESSION: 1. No acute abnormality of abdomen or pelvis. 2. Sludge-filled gallbladder. 3. Premature atherosclerotic changes of the abdominal aorta and bilateral iliac system. There is suspected mild/moderate grade narrowing of the common iliac artery on the left. 4. There are some asymmetric soft tissue fullness at the right gluteus qamar muscle relative to the left side. This could be related to asymmetric muscle hypertrophy. An intramuscular mass would be considered less likely but cannot be excluded. Correlate clinically. Images of the pelvis show nondistended urinary bladder. Prostate gland mildly enlarged. No free fluid or pelvic lymphadenopathy. Cardiac Cath <Conclusion> Widely patent proximal LAD stent. Chronically occluded distal left circumflex vessel. Intact LV systolic function. Echo <Conclusion> The left ventricle is normal size. The left ventricular systolic function is normal and the ejection fraction is within normal range. The Ejection Fraction is 55-60%. There is mild concentric left ventricular hypertrophy. There is no significant aortic valvular stenosis. Doppler and Color Flow revealed trace to mild aortic regurgitation. Doppler and Color-flow revealed trace mitral regurgitation. Doppler and Color Flow revealed no tricuspid valve regurgitation noted. PE: GEN: NAD LUNGS: CTAB HEART: RRR ABD: NABS, S/ND/NT NEURO/PSYCH: A & O 3 A/P: Chest pain, vomiting - resolved Unintentional weight loss CAD, COPD -- Will review CT w/ Dr. Cruz. ?DC Outpt screening colonoscopy. SRINIVASA SHARMA March 02, 2019 12:49
--- NOTE | 2019-03-02 14:21 | PDOC3 ---
Discharge Summary Date of Admission: February 28, 2019 Date of Discharge: March 02, 2019 Follow-Up: 3-5 days Admitting Diagnosis comment: DISCHARGE DX Assessment/Plan 60 lbs weight loss with chest pain abd pain and nausea hyperkalemia unstable angina tobacco abuse concerning for malignancy, check Ca 19-9, asymmetric soft tissue fullness at the right gluteus qamar muscle relative to the left side. This could be related to asymmetric muscle hypertrophy. An intramuscular mass would be considered less likely but cannot be excluded. Correlate clinically. HOME IF OK WITH GI cardiac cath OK marked depression, major depression has avoided doctors and has not been compliant with meds after his heart attack last year tobacco use disorder Smoking cessation counseling provided. He no longer plans to smoke cigarettes and marijuana and cocaine. OK WITH pulmonary standpoint, no additional workup is needed and could be discharged home SEE PCP NEXT WEEK RE THIS CT REPORT Vitals Vitals Vital Signs Date Time Temp Pulse Resp B/P (MAP) Pulse Ox O2 Delivery O2 Flow Rate FiO2 03/02/19 08:11 100 Room Air 03/02/19 02:30 98.3 59 18 118/67 (84) 98.3 03/01/19 19:45 2.0 Physical Exam General: Alert, Oriented X3, Cooperative, No acute distress Heart: Regular rate (SR), Normal S1, Normal S2, Other (2/6 systolic murmur to LLS border) Lungs: Clear, Wheezing Abdomen: Normal bowel sounds, Soft, No tenderness Extremities: No clubbing, No cyanosis, No edema Skin: No breakdown, No significant lesion Labs LABS CT abdomen pelvis with contrast dated 03/02/2019. No comparison available. Clinical data indication: Weight loss. TECHNIQUE: Contiguous axial imaging the abdomen and pelvis performed after the administration of 75 cc Omnipaque 300. One or more of the following individualized dose reduction techniques were utilized for this examination: 1. Automated exposure control 2. Adjustment of the mA and/or kV according to patient size 3. Use of iterative reconstruction technique FINDINGS: Limited images of lung bases are clear. Heart size within normal limits. No pleural or pericardial effusion. Liver is homogeneous. No apparent hepatic mass. Biliary tree normal in caliber. There is layering hyperdensity the gallbladder lumen consistent with sludge. Spleen is normal in size. Pancreas, adrenal glands and kidneys are unremarkable. No hydronephrosis. Partially opacified GI tract normal in caliber and contour. No focal bowel wall thickening. No inflammatory stranding in the mesentery. The appendix is normal in caliber. Abdominal aorta is normal in caliber. There is atherosclerotic changes throughout the distal abdominal aorta and bilateral iliac systems. Suspected mild to moderate grade narrowing of the distal left common iliac. Bone windows show no acute findings. There is generalized muscle hypertrophy. There is some asymmetric fullness of the right gluteus qamar muscle relative to the left side. A definite mass is not visualized. IMPRESSION: 1. No acute abnormality of abdomen or pelvis. 2. Sludge-filled gallbladder. 3. Premature atherosclerotic changes of the abdominal aorta and bilateral iliac system. There is suspected mild/moderate grade narrowing of the common iliac artery on the left. 4. There are some asymmetric soft tissue fullness at the right gluteus qamar muscle relative to the left side. This could be related to asymmetric muscle hypertrophy. An intramuscular mass would be considered less likely but cannot be excluded. Correlate clinically. Images of the pelvis show nondistended urinary bladder. Prostate gland mildly enlarged. No free fluid or pelvic lymphadenopathy. Electronically signed by: Brian Maxwell MD (03/02/2019 9:41 AM) FINAL DIAGNOSIS Problems Medical Problems: (1) Chest pain Status: Acute Brief Hospital Course Mr. Fonseca is a 53 old [sex] who presented with [CHEST PAIN ] CONDITION AT DISCHARGE: Improved Discharge Medications Current Medications Ondansetron HCl (Zofran) 4 mg 1X ONCE IV Last administered on 02/28/19at 12:42; Start 02/28/19 at 12:30; Stop 02/28/19 at 12:31; Status DC Aspirin (Lorelei Aspirin) 325 mg 1X ONCE PO Last administered on 02/28/19at 18:06; Start 02/28/19 at 17:30; Stop 02/28/19 at 17:31; Status DC Aspirin (Lorelei Aspirin) 325 mg DAILYWBKFT PO Last administered on 03/02/19at 11:05; Start 03/01/19 at 08:00 Albuterol/ Ipratropium (Duoneb) 3 ml RTQID NEB Last administered on 03/02/19at 12:06; Start 02/28/19 at 20:00 Enoxaparin Sodium (Lovenox Per Pharmacy Prophylaxis Dosing) 1 each PRN DAILY PRN MC SEE COMMENTS; Start 02/28/19 at 17:00; Stop 02/28/19 at 17:00; Status DC Enoxaparin Sodium (Lovenox 40mg Syringe) 40 mg Q24H SQ Last administered on 03/01/19at 21:17; Start 02/28/19 at 21:00 Morphine Sulfate (Morphine Sulfate) 4 mg PRN Q2HR PRN IV PAIN; Start 02/28/19 at 17:15 Oxycodone/ Acetaminophen (Percocet 5/325) 1 tab PRN Q4HRS PRN PO PAIN Last administered on 02/28/19at 22:52; Start 02/28/19 at 17:15 Albuterol/ Ipratropium (Duoneb) 3 ml STK-MED ONCE .ROUTE ; Start 02/28/19 at 18:00; Stop 02/28/19 at 18:01; Status DC Atorvastatin Calcium (Lipitor) 40 mg QHS PO Last administered on 03/01/19at 21:16; Start 03/01/19 at 21:00 Ceftriaxone Sodium (Rocephin) 1 gm Q24H IVP Last administered on 03/02/19at 11:09; Start 03/01/19 at 11:00 Iodixanol (Visipaque 320) 100 ml STK-MED ONCE .ROUTE ; Start 03/01/19 at 13:35; Stop 03/01/19 at 13:36; Status DC Lidocaine HCl (Lidocaine 1% 20ml Vial) 20 ml STK-MED ONCE .ROUTE ; Start 03/01/19 at 13:35; Stop 03/01/19 at 13:36; Status DC Heparin Sodium/ Sodium Chloride 1,000 ml @ As Directed STK-MED ONCE .ROUTE ; Start 03/01/19 at 13:35; Stop 03/01/19 at 13:36; Status DC Fentanyl Citrate (Fentanyl 2ml Vial) 100 mcg STK-MED ONCE .ROUTE ; Start 03/01/19 at 13:37; Stop 03/01/19 at 13:38; Status DC Midazolam HCl (Versed) 2 mg STK-MED ONCE .ROUTE ; Start 03/01/19 at 13:37; Stop 03/01/19 at 13:38; Status DC Heparin Sodium/ Sodium Chloride (HEPARIN for ARTERIAL LINE FLUSH) 1,000 unit 1X ONCE IART Last administered on 03/01/19at 14:00; Start 03/01/19 at 14:00; Stop 03/01/19 at 14:01; Status DC Midazolam HCl (Versed) 2 mg 1X ONCE IV Last administered on 03/01/19at 14:00; Start 03/01/19 at 14:00; Stop 03/01/19 at 14:01; Status DC Fentanyl Citrate (Fentanyl 2ml Vial) 100 mcg 1X ONCE IV Last administered on 03/01/19at 14:00; Start 03/01/19 at 14:00; Stop 03/01/19 at 14:01; Status DC Iodixanol (Visipaque 320) 100 ml 1X ONCE IART Last administered on 03/01/19at 14:00; Start 03/01/19 at 14:00; Stop 03/01/19 at 14:01; Status DC Lidocaine HCl (Lidocaine 1% 20ml Vial) 20 ml 1X ONCE INJ Last administered on 03/01/19at 14:00; Start 03/01/19 at 14:00; Stop 03/01/19 at 14:01; Status DC Info (CONTRAST GIVEN -- Rx MONITORING) 1 each PRN DAILY PRN MC SEE COMMENTS; Start 03/01/19 at 14:00; Stop 03/03/19 at 13:59 Lactobacillus Rhamnosus (Culturelle) 1 cap BID PO Last administered on 03/02/19at 11:05; Start 03/01/19 at 21:00 Sodium Chloride (Normal Saline Flush) 3 ml QSHIFT PRN IV AFTER MEDS AND BLOOD DRAWS; Start 03/01/19 at 15:00 Sodium Chloride 1,000 ml @ 75 mls/hr [id number] IV Last administered on 03/01/19at 15:53; Start 03/01/19 at 14:52; Stop 03/01/19 at 19:51; Status DC Nitroglycerin (Nitrostat) 0.4 mg PRN Q5MIN PRN SL CHEST PAIN; Start 03/01/19 at 15:00 Iohexol (Omnipaque 240 Mg/ml) 50 ml 1X ONCE PO Last administered on 03/02/19at 08:30; Start 03/02/19 at 08:30; Stop 03/02/19 at 08:31; Status DC Iohexol (Omnipaque 300 Mg/ml) 100 ml 1X ONCE IV Last administered on 03/02/19at 08:30; Start 03/02/19 at 08:30; Stop 03/02/19 at 08:31; Status DC Active Scripts Active Metoprolol Tartrate 25 Mg Tablet 12.5 Mg PO BID 30 Days Lisinopril 5 Mg Tablet 5 Mg PO DAILY 30 Days Atorvastatin Calcium 20 Mg Tablet 20 Mg PO QHS 30 Days Aspirin Ec (Aspirin) 81 Mg Tablet.dr 81 Mg PO DAILYWBKFT 30 Days Vital Signs Vital Signs Date Time Temp Pulse Resp B/P (MAP) Pulse Ox O2 Delivery O2 Flow Rate FiO2 03/02/19 12:06 Room Air 03/02/19 11:00 98.5 98 16 127/69 (88) 100 98.5 03/01/19 19:45 2.0 Labs Laboratory Tests Test 02/28/19 19:20 03/01/19 05:45 03/01/19 10:26 03/02/19 04:15 Urine Collection Type Unknown Urine Color [place] Urine Clarity Clear Urine pH 7.0 Urine Specific [place] 1.025 Urine Protein 30 mg/dL (NEG-TRACE) Urine Glucose (UA) Negative mg/dL (NEG) Urine Ketones (Stick) Trace mg/dL (NEG) Urine Blood Negative (NEG) Urine Nitrite Negative (NEG) Urine Bilirubin Small (NEG) Urine Urobilinogen Dipstick 4.0 mg/dL (0.2 mg/dL) Urine Leukocyte Esterase Small (NEG) Urine RBC Rare /HPF (0-2) Urine WBC 5-10 /HPF (0-4) Urine Squamous Epithelial Cells Few /LPF Urine Bacteria 0 /HPF (0-FEW) Urine Mucus Slight /LPF White Blood Count 4.2 x10^3/uL (4.0-11.0) 4.8 x10^3/uL (4.0-11.0) Red Blood Count 5.22 x10^6/uL (4.30-5.70) 4.78 x10^6/uL (4.30-5.70) Hemoglobin 17.1 g/dL (13.0-17.5) 15.2 g/dL (13.0-17.5) Hematocrit 49.5 % (39.0-53.0) 45.2 % (39.0-53.0) Mean Corpuscular Volume 95 fL (79-100) 95 fL (79-100) Mean Corpuscular Hemoglobin 33 pg (25-35) 32 pg (25-35) Mean Corpuscular Hemoglobin Concent 35 g/dL (31-37) 34 g/dL (31-37) Red Cell Distribution Width 13.9 % (11.5-14.5) 14.0 % (11.5-14.5) Platelet Count 263 x10^3/uL (140-400) 258 x10^3/uL (140-400) Neutrophils (%) (Auto) 28 % (31-73) 42 % (31-73) Lymphocytes (%) (Auto) 61 % (24-48) 49 % (24-48) Monocytes (%) (Auto) 8 % (0-9) 7 % (0-9) Eosinophils (%) (Auto) 1 % (0-3) 1 % (0-3) Basophils (%) (Auto) 1 % (0-3) 1 % (0-3) Neutrophils # (Auto) 1.2 x10^3uL (1.8-7.7) 2.0 x10^3uL (1.8-7.7) Lymphocytes # (Auto) 2.6 x10^3/uL (1.0-4.8) 2.4 x10^3/uL (1.0-4.8) Monocytes # (Auto) 0.4 x10^3/uL (0.0-1.1) 0.4 x10^3/uL (0.0-1.1) Eosinophils # (Auto) 0.0 x10^3/uL (0.0-0.7) 0.0 x10^3/uL (0.0-0.7) Basophils # (Auto) 0.1 x10^3/uL (0.0-0.2) 0.0 x10^3/uL (0.0-0.2) Erythrocyte Sedimentation Rate 5 (0-15) Sodium Level 137 mmol/L (136-145) 137 mmol/L (136-145) Potassium Level 3.5 mmol/L (3.5-5.1) 3.7 mmol/L (3.5-5.1) Chloride Level 98 mmol/L (98-107) 101 mmol/L (98-107) Carbon Dioxide Level 31 mmol/L (21-32) 28 mmol/L (21-32) Anion Gap 8 (6-14) 8 (6-14) Blood Urea Nitrogen 18 mg/dL (8-26) 12 mg/dL (8-26) Creatinine 1.1 mg/dL (0.7-1.3) 1.0 mg/dL (0.7-1.3) Estimated GFR (Cockcroft-Gault) 84.4 94.2 BUN/Creatinine Ratio 16 (6-20) 12 (6-20) Glucose Level 99 mg/dL (70-99) 101 mg/dL (70-99) Calcium Level 9.2 mg/dL (8.5-10.1) 8.8 mg/dL (8.5-10.1) Ionized Calcium 1.06 mmol/L (1.13-1.32) Total Bilirubin 1.2 mg/dL (0.2-1.0) 0.7 mg/dL (0.2-1.0) Aspartate Amino Transf (AST/SGOT) 18 U/L (15-37) 16 U/L (15-37) Alanine Aminotransferase (ALT/SGPT) 22 U/L (16-63) 18 U/L (16-63) Alkaline Phosphatase 18 U/L (46-116) 43 U/L (46-116) Troponin I Quantitative 0.027 ng/mL (0.000-0.055) < 0.017 ng/mL (0.000-0.055) C-Reactive Protein, Quantitative 3.0 mg/L (0-3.3) Total Protein 7.6 g/dL (6.4-8.2) 6.6 g/dL (6.4-8.2) Albumin 3.5 g/dL (3.4-5.0) 3.1 g/dL (3.4-5.0) Albumin/Globulin Ratio 0.9 (1.0-1.7) 0.9 (1.0-1.7) Triglycerides Level 83 mg/dL (0-150) Cholesterol Level 156 mg/dL (0-200) LDL Cholesterol, Calculated 108 mg/dL (0-100) VLDL Cholesterol, Calculated 17 mg/dL (0-40) Non-HDL Cholesterol Calculated 125 mg/dL (0-129) HDL Cholesterol 31 mg/dL (40-60) Cholesterol/HDL Ratio 5.0 Laboratory Tests Test 03/02/19 04:15 White Blood Count 4.8 x10^3/uL (4.0-11.0) Red Blood Count 4.78 x10^6/uL (4.30-5.70) Hemoglobin 15.2 g/dL (13.0-17.5) Hematocrit 45.2 % (39.0-53.0) Mean Corpuscular Volume 95 fL (79-100) Mean Corpuscular Hemoglobin 32 pg (25-35) Mean Corpuscular Hemoglobin Concent 34 g/dL (31-37) Red Cell Distribution Width 14.0 % (11.5-14.5) Platelet Count 258 x10^3/uL (140-400) Neutrophils (%) (Auto) 42 % (31-73) Lymphocytes (%) (Auto) 49 % (24-48) Monocytes (%) (Auto) 7 % (0-9) Eosinophils (%) (Auto) 1 % (0-3) Basophils (%) (Auto) 1 % (0-3) Neutrophils # (Auto) 2.0 x10^3uL (1.8-7.7) Lymphocytes # (Auto) 2.4 x10^3/uL (1.0-4.8) Monocytes # (Auto) 0.4 x10^3/uL (0.0-1.1) Eosinophils # (Auto) 0.0 x10^3/uL (0.0-0.7) Basophils # (Auto) 0.0 x10^3/uL (0.0-0.2) Sodium Level 137 mmol/L (136-145) Potassium Level 3.7 mmol/L (3.5-5.1) Chloride Level 101 mmol/L (98-107) Carbon Dioxide Level 28 mmol/L (21-32) Anion Gap 8 (6-14) Blood Urea Nitrogen 12 mg/dL (8-26) Creatinine 1.0 mg/dL (0.7-1.3) Estimated GFR (Cockcroft-Gault) 94.2 BUN/Creatinine Ratio 12 (6-20) Glucose Level 101 mg/dL (70-99) Calcium Level 8.8 mg/dL (8.5-10.1) Total Bilirubin 0.7 mg/dL (0.2-1.0) Aspartate Amino Transf (AST/SGOT) 16 U/L (15-37) Alanine Aminotransferase (ALT/SGPT) 18 U/L (16-63) Alkaline Phosphatase 43 U/L (46-116) Total Protein 6.6 g/dL (6.4-8.2) Albumin 3.1 g/dL (3.4-5.0) Albumin/Globulin Ratio 0.9 (1.0-1.7) Allergies Allergies Coded Allergies Type Severity Reaction Last Updated Verified No Known Drug Allergies 02/07/16 No Disposition/Orders: D/C to Home Patient Instructions D/C PLANNING 37 MIN KEN SHRESTHA MD March 02, 2019 14:21
[2019-03-02] MEDS ORDERED: ATOR40TA59 PO (14:23)
[2019-03-02] MEDS ORDERED: ASPI325T8 PO (14:23)
--- NOTE | 2019-03-02 14:25 | DISCH ---
DISCHARGE INSTRUCTIONS Condition on Discharge Condition on Discharge: Guarded Activity After Discharge Activity Instructions for Disc: Activity as tolerated Lifting Instructions after Dis: No heavy lifting, No pulling or pushing, Do not lift >10 pounds Driving Instructions after Dis: Do not drive, Do not drive today Diet after Discharge Diet after Discharge: Cardiac Wound Incision Care Wound/Incision Care: Reinforce dressing PRN Checks after Discharge Checks after discharge: Check blood press - daily Contacting the DR. after DC Call your doctor for: If your condition worsens Treatment/Equipment after DC Adaptive Equipment Issued: None KEN SHRESTHA MD March 02, 2019 14:25
== END 2019-03-02 15:30 | disposition home or self-care (01) | DRG 287 ==
LOC: ER 10:55 → OBSVTOIN 13:38 → 2 NORTH 13:38
PROVIDERS: ADMIT Internal Medicine; ATTEND Internal Medicine
PROC: 4A023N7 Measurement of Cardiac Sampling and Pressure, Left Heart, Percutaneous Approach (ICD-10-PCS; principal; 2019-02-28)
PROC: B2111ZZ Fluoroscopy of Multiple Coronary Arteries using Low Osmolar Contrast (ICD-10-PCS; 2019-02-28)
PROC: B2151ZZ Fluoroscopy of Left Heart using Low Osmolar Contrast (ICD-10-PCS; 2019-02-28)
DX: I25.110 Atherosclerotic heart disease of native coronary artery with unstable angina pectoris (principal); Z68.1 Body mass index [BMI] 19.9 or less, adult; N17.9 Acute kidney failure, unspecified; M19.90 Unspecified osteoarthritis, unspecified site; F32.9 Major depressive disorder, single episode, unspecified; F17.210 Nicotine dependence, cigarettes, uncomplicated; J44.9 Chronic obstructive pulmonary disease, unspecified; E87.5 Hyperkalemia; I11.9 Hypertensive heart disease without heart failure; F41.9 Anxiety disorder, unspecified; E78.5 Hyperlipidemia, unspecified; I70.0 Atherosclerosis of aorta; M62.89 Other specified disorders of muscle; R63.4 Abnormal weight loss; I25.2 Old myocardial infarction; Z91.19 Patient's noncompliance with other medical treatment and regimen; Z91.14 Patient's other noncompliance with medication regimen; Z95.5 Presence of coronary angioplasty implant and graft; Z82.49 Family history of ischemic heart disease and other diseases of the circulatory system; Z80.9 Family history of malignant neoplasm, unspecified
CPT/HCPCS: 36415; 71045; 74177; 76770; 80053; 80061; 81001; 82310; 83690; 83735; 83880; 84484; 85025; 85651; 86140; 86301; 87086; 93005; 93306; 93458; 94640; 94760; 96374; 99152; 99153; 99406; C1769; C1892; J0696; J1644; J1650; J2250; J2405; J3010; J7030; J7620; Q9966; Q9967; 99285-25